=== PATIENT | male | born 1995 | race Caucasian/White ===

== ENCOUNTER 2017-08-01 11:40 | Inpatient (IN) | payer OTHER, MEDICAID ==
[2017-08-01] VITALS (11 sets, daily range): BP systolic 102–147; BP diastolic 38–69
[~2017-08-01] VITALS: Ht 177.8 cm; Wt 68.0 kg
--- NOTE | 2017-08-01 11:59 | Emergency Room Report ---
History of Present Illness General Chief Complaint: Nausea Source: Patient, EMS Present Illness HPI 21-year-old male, with type 1 diabetes, substance abuse, presenting with nausea vomiting and generalized weakness. Patient states that he relapsed after recovering from rehabilitation, used intravenous meth, and crack, this a.m. Patient states that he began to feel very short of breath with generalized weakness. Patient also states that he has numbness to all 4 extremities. Patient also states that he had nausea and vomiting nonbilious nonbloody x2 episodes. Denies any abdominal pain Patient states that he is supposed to be on insulin but has not taken it for 3 years. Patient states that he has been to the ICU for complications related to his diabetes in the past. Patient denying any fever or chills. Allergies: Coded Allergies: No Known Allergies (Unverified , 08/01/17) Patient History Past Medical History: see triage record Past Surgical History: none Pertinent Family History: none Reviewed Nursing Documentation: PMH: Agreed, PSxH: Agreed Review of Systems All Other Systems: negative except mentioned in HPI Physical Exam Vital Signs Date Time Temp Pulse Resp B/P (MAP) Pulse Ox O2 Delivery O2 Flow Rate FiO2 08/01/17 11:38 97.9 104 16 138/60 98 Room Air Sp02 EP Interpretation: reviewed, normal General Appearance: alert, GCS 15, other - Young male, appears anxious, tachypneic, speaking complete sentences Head: normocephalic, atraumatic Eyes: bilateral eye normal inspection, bilateral eye PERRL, bilateral eye EOMI ENT: normal ENT inspection, normal pharynx, normal voice, moist mucus membranes Neck: normal inspection, full range of motion, supple Respiratory: normal inspection, lungs clear, normal breath sounds, no respiratory distress, no retraction, no wheezing, speaking full sentences, chest symmetrical Cardiovascular #1: normal inspection, no edema, normal capillary refill, tachycardia Cardiovascular #2: 2+ radial (R), 2+ radial (L) Gastrointestinal: normal inspection, non tender, soft, non-distended, no guarding Genitourinary: no CVA tenderness Musculoskeletal: normal inspection, back normal, normal range of motion, non- tender Neurologic: normal inspection, alert, oriented x3, responsive, motor strength/ tone normal, sensory intact, normal gait, speech normal Psychiatric: normal inspection, judgement/insight normal, memory normal Skin: normal inspection, normal color, no rash, warm/dry, normal turgor Procedures Critical Care Time Critical Care Time 40 minutes of CC time 21-year-old male found to be in DKA VS: hypotension, tachycardia Sepsis criteria met Airway patent. Not hypoxic. BP improved here with IVF PLAN: IV access, labs, lactate, acetone, Blood/Urine Cx, Abx ICU CC time also includes review of labs, discussion with pharmacy, managing patient 's electrolytes, insulin drip. CC could include dosing of pressors, additional Abx CC time does not include procedures Medical Decision Making Diagnostic Impression: Primary Impression: DKA, type 1 Additional Impressions: Sepsis Dehydration Hyperkalemia ER Course 21 yo M. with diabetes, substance abuse, presenting with generalized weakness nausea vomiting DDX: Rule out DKA, electrolyte disturbance, dehydration, hypovolemia, infectious, UTI or pneumonia Substance abuse rule out overdose Plan: Obtain labs, ua, acetone, tox labs EKG, CXR IV fluids Consider insulin drip ER course: Patient has been monitored during ED stay, Continues to be in critical condition IV fluid 1000cc's x 2 HyperK treated insulin drip started at 0.1 units/kg/hr broad spectrum abx given Disposition: Patient is to be admitted to ICU D/W hospitalist Dr. Clyde Correa Please note that this Emergency Department Report was dictated using [employer] technology software, occasionally this can lead to erroneous entry secondary to interpretation by the dictation equipment. Laboratory Tests Test 08/01/17 11:55 08/01/17 11:56 08/01/17 14:15 White Blood Count 18.5 K/UL (4.8-10.8) H Red Blood Count 4.70 M/UL (4.70-6.10) Hemoglobin 14.5 G/DL (14.2-18.0) Hematocrit 47.8 % (42.0-52.0) Mean Corpuscular Volume 102 FL (80-99) H Mean Corpuscular Hemoglobin 30.8 PG (27.0-31.0) Mean Corpuscular Hemoglobin Concent 30.2 G/DL (32.0-36.0) L Red Cell Distribution Width 12.8 % (11.6-14.8) Platelet Count 474 K/UL (150-450) H Mean Platelet Volume 6.2 FL (6.5-10.1) L Neutrophils (%) (Auto) % (45.0-75.0) Lymphocytes (%) (Auto) % (20.0-45.0) Monocytes (%) (Auto) % (1.0-10.0) Eosinophils (%) (Auto) % (0.0-3.0) Basophils (%) (Auto) % (0.0-2.0) Differential Total Cells Counted 100 Neutrophils % (Manual) 88 % (45-75) H Lymphocytes % (Manual) 8 % (20-45) L Monocytes % (Manual) 3 % (1-10) Eosinophils % (Manual) 0 % (0-3) Basophils % (Manual) 1 % (0-2) Band Neutrophils 0 % (0-8) Platelet Estimate Adequate Platelet Morphology Normal Red Blood Cell Morphology Macrocytosis 1+ Sodium Level 118 mEQ/L (135-145) *L 126 mEQ/L (135-145) L Potassium Level 7.2 mEQ/L (3.4-4.9) *H 6.6 mEQ/L (3.4-4.9) *H Chloride Level 72 mEQ/L (98-107) L 83 mEQ/L (98-107) L Carbon Dioxide Level 6 mEQ/L (20-30) *L 4 mEQ/L (20-30) *L Anion Gap 40 (5-15) H 39 (5-15) H Blood Urea Nitrogen 35 mg/dL (7-23) H 35 mg/dL (7-23) H Creatinine 2.0 mg/dL (0.7-1.2) H 1.9 mg/dL (0.7-1.2) H Estimate Glomerular Filtration Rate 42.4 mL/min (>60) 45.0 mL/min (>60) Glucose Level 1073 mg/dL (74-106) *H 758 mg/dL (74-106) #*H Lactic Acid Level 2.60 mmol/L (0.66-2.22) H Calcium Level 9.2 mg/dL (8.6-10.2) 8.9 mg/dL (8.6-10.2) Magnesium Level 2.5 mg/dL (1.7-2.5) Total Bilirubin 0.5 mg/dL (0.0-1.2) 0.3 mg/dL (0.0-1.2) Aspartate Amino Transferase (AST) 25 U/L (5-40) 30 U/L (5-40) Alanine Aminotransferase (ALT) 22 U/L (3-41) 25 U/L (3-41) Alkaline Phosphatase 181 U/L (40-129) H 175 U/L (40-129) H Total Protein 8.3 g/dL (6.6-8.7) 7.8 g/dL (6.6-8.7) Albumin 5.0 g/dL (3.5-5.2) 4.7 g/dL (3.5-5.2) Globulin 3.3 g/dL 3.1 g/dL Albumin/Globulin Ratio 1.5 (1.0-2.7) 1.5 (1.0-2.7) Salicylates Level < 1 mg/dL (10-30) L Acetaminophen Level < 10 ug/mL (10-30) L Serum Alcohol < 10 mg/dL Acetone Level Positive-moderate (NEGATIVE) Urine Color Pale yellow Urine Appearance Clear Urine pH 5 (4.5-8.0) Urine Specific [place] 1.015 (1.005-1.035) Urine Protein 2+ (NEGATIVE) H Urine Glucose (UA) 4+ (NEGATIVE) H Urine Ketones 4+ (NEGATIVE) H Urine Occult Blood 1+ (NEGATIVE) H Urine Nitrite Negative (NEGATIVE) Urine Bilirubin Negative (NEGATIVE) Urine Urobilinogen Normal MG/DL (0.0-1.0) Urine Leukocyte Esterase Negative (NEGATIVE) Urine RBC 2-4 /HPF (0 - 0) H Urine WBC 0-2 /HPF (0 - 0) Urine Squamous Epithelial Cells None /LPF (NONE/OCC) Urine Bacteria Occasional /HPF (NONE) Urine Opiates Screen Negative (NEGATIVE) Urine Barbiturates Screen Positive (NEGATIVE) H Phencyclidine (PCP) Screen Negative (NEGATIVE) Urine Amphetamines Screen Negative (NEGATIVE) Urine Benzodiazepines Screen Negative (NEGATIVE) Urine Cocaine Screen Positive (NEGATIVE) H Urine Marijuana (THC) Screen Negative (NEGATIVE) EKG Diagnostic Results Rate: tachycardiac Rhythm: NSR ST Segments: no acute changes ASA given to the pt in ED: No Rhythm Strip Diag. Results EP Interpretation: yes Rate: 90 Rhythm: NSR, no PVC's, no ectopy Chest X-Ray Diagnostic Results Chest X-Ray Diagnostic Results : Chest X-Ray Ordered: Yes # of Views/Limited/Complete: 1 View Indication: Other EP Interpretation: Yes Interpretation: no consolidation, no effusion, no pneumothorax, no acute cardiopulmonary disease Impression: No acute disease Electronically Signed by: Electronically signed by Roxanne Rayo MD Last Vital Signs Date Time Temp Pulse Resp B/P (MAP) Pulse Ox O2 Delivery O2 Flow Rate FiO2 08/01/17 11:38 97.9 104 16 138/60 98 Room Air Disposition: ADMITTED INPATIENT Condition: Critical Roxanne Rayo M.D. Aug 01, 2017 11:59
[2017-08-01 12:21] LABS: KETONES,URINE 4+ (NEGATIVE); LEUKOCYTE ESTERASE ,URINE NEGATIVE (NEGATIVE); NITRITE,URINE NEGATIVE (NEGATIVE); PH,URINE 5 (4.5-8.0); PROTEIN,URINE 2+ (NEGATIVE); UROBILINOGEN,URINE NORMAL MG/DL (0.0-1.0)
[2017-08-01 12:21] LABS: MEAN CORPUSCULAR HEMOGLOBIN 30.8 PG (27.0-31.0); MEAN CORPUSCULAR HGB CONC 30.2 G/DL (32.0-36.0); MEAN CORPUSCULAR VOLUME 102 FL (80-99); MEAN PLATELET VOLUME 6.2 FL (6.5-10.1); PLATELET COUNT 474 K/UL (150-450); RED CELL DISTRIBUTION WIDTH 12.8 % (11.6-14.8); WHITE BLOOD COUNT 18.5 K/UL (4.8-10.8)
[2017-08-01 12:27] LABS: ACETAMINOPHEN < 10 ug/mL (10-30); ALANINE AMINOTRANSFERASE 22 U/L (3-41); ALBUMIN/GLOBULIN RATIO 1.5 (1.0-2.7); ALCOHOL < 10 mg/dL; ANION GAP 40 (5-15); ASPARTATE AMINO TRANSFERASE 25 U/L (5-40); CALCIUM 9.2 mg/dL (8.6-10.2); CHLORIDE 72 mEQ/L (98-107); GLOMERULAR FILTRATION RATE 42.4 mL/min (>60); HEMOLYSIS 3; MAGNESIUM 2.5 mg/dL (1.7-2.5); TOTAL PROTEIN 8.3 g/dL (6.6-8.7)
[2017-08-01 12:30] LABS: APPEARANCE,URINE CLEAR; BACTERIA,URINE OCCASIONAL /HPF; WBC,URINE 0-2 /HPF (0 - 0)
[2017-08-01 12:33] LABS: REFLEX LACTIC ACID YES OR NO YES
[2017-08-01 12:41] LABS: CARBON DIOXIDE 6 mEQ/L (20-30); POTASSIUM 7.2 mEQ/L (3.4-4.9); SODIUM 118 mEQ/L (135-145)
[2017-08-01 12:45] LABS: BAND NEUTROPHILS % (MANUAL) 0 % (0-8); BASOPHILS % (MANUAL) 1 % (0-2); EOSINOPHILS % (MANUAL) 0 % (0-3); LYMPHOCYTES % (MANUAL) 8 % (20-45); MACROCYTES 1+; NEUTROPHILS % (MANUAL) 88 % (45-75); PLATELET ESTIMATE ADEQUATE; PLATELET MORPHOLOGY NORMAL; TOTAL CELLS COUNTED 100
[2017-08-01] MEDS ORDERED: Vancomycin 1.5gm/D5W 250ml 250 ML IVPB ONE (12:45)
[2017-08-01] MEDS ORDERED: Piperacillin/Tazobactam 3.375 GM in NS 110 ML IVPB ONE (12:45)
[2017-08-01] MEDS ORDERED: Calcium Gluconate 1gm/10ml vial IVP ONE (13:00)
[2017-08-01] MEDS ORDERED: Zosyn 3.375gm inj ONE (13:15)
--- NOTE | 2017-08-01 13:41 | Diagnostic Imaging Report ---
Indication: Dyspnea Comparison: None A single view chest radiograph was obtained. Findings: Cardiomediastinal appearance is within normal limits for age. Pulmonary vascularity is appropriate. The diaphragmatic contour is smooth and costophrenic angles are sharp. No pleural effusions are identified. The bones are unremarkable. Impression: No acute findings
[2017-08-01] MEDS ORDERED: Miralax 17gm pkt ORAL PRN (14:00)
[2017-08-01] MEDS ORDERED: Nitroglycerin Subl 0.4mg tab (Bottle Of 25) SL PRN (14:00)
[2017-08-01] MEDS ORDERED: DuoNeb 0.5-3(2.5)mg/3ml neb HHN PRN (14:00)
[2017-08-01 14:42] LABS: ALBUMIN/GLOBULIN RATIO 1.5 (1.0-2.7); CALCIUM 8.9 mg/dL (8.6-10.2); CREATININE 1.9 mg/dL (0.7-1.2); TOTAL PROTEIN 7.8 g/dL (6.6-8.7)
[2017-08-01 14:44] LABS: POTASSIUM 6.6 mEQ/L (3.4-4.9)
[2017-08-01] MEDS: Insulin Rate Change 1 Each MISC PRN ×6 (18:05→22:32)
--- NOTE | 2017-08-01 18:08 | Infectious Diseases Prog Note ---
Assessment/Plan Problems: (1) Sepsis Assessment & Plan: will start vancomycin and cefepime empirically pending blood culture (2) DKA, type 1 Assessment & Plan: on insulin drip, monitor glucose level closely (3) Dehydration Assessment & Plan: continue IVF, for hydration monitor electrolytes (4) Hyperkalemia Assessment & Plan: due to DKA, monitor potassium level closely , may need replacement if drops with insulin treatment Subjective Allergies: Coded Allergies: No Known Allergies (Unverified , 08/01/17) Objective Vital Signs Last 24 Hour Vital Signs Date Time Temp Pulse Resp B/P (MAP) Pulse Ox O2 Delivery O2 Flow Rate FiO2 08/01/17 17:00 111 25 102/44 100 Room Air 08/01/17 16:32 109 08/01/17 16:30 102 08/01/17 16:30 98.1 102 22 108/43 100 Room Air 08/01/17 15:45 97.9 119 24 113/52 100 Room Air 08/01/17 13:30 97.9 55 24 105/41 100 Room Air 08/01/17 12:08 97.9 116 40 147/69 100 Room Air 08/01/17 11:38 97.9 104 16 138/60 98 Room Air Height (Feet): 5 Height (Inches): 10.00 Weight (Pounds): 150 Laboratory Tests Test 08/01/17 11:55 08/01/17 11:56 08/01/17 14:15 08/01/17 15:01 White Blood Count 18.5 K/UL (4.8-10.8) H Red Blood Count 4.70 M/UL (4.70-6.10) Hemoglobin 14.5 G/DL (14.2-18.0) Hematocrit 47.8 % (42.0-52.0) Mean Corpuscular Volume 102 FL (80-99) H Mean Corpuscular Hemoglobin 30.8 PG (27.0-31.0) Mean Corpuscular Hemoglobin Concent 30.2 G/DL (32.0-36.0) L Red Cell Distribution Width 12.8 % (11.6-14.8) Platelet Count 474 K/UL (150-450) H Mean Platelet Volume 6.2 FL (6.5-10.1) L Neutrophils (%) (Auto) % (45.0-75.0) Lymphocytes (%) (Auto) % (20.0-45.0) Monocytes (%) (Auto) % (1.0-10.0) Eosinophils (%) (Auto) % (0.0-3.0) Basophils (%) (Auto) % (0.0-2.0) Differential Total Cells Counted 100 Neutrophils % (Manual) 88 % (45-75) H Lymphocytes % (Manual) 8 % (20-45) L Monocytes % (Manual) 3 % (1-10) Eosinophils % (Manual) 0 % (0-3) Basophils % (Manual) 1 % (0-2) Band Neutrophils 0 % (0-8) Platelet Estimate Adequate Platelet Morphology Normal Red Blood Cell Morphology Macrocytosis 1+ Sodium Level 118 mEQ/L (135-145) *L 126 mEQ/L (135-145) L Potassium Level 7.2 mEQ/L (3.4-4.9) *H 6.6 mEQ/L (3.4-4.9) *H Chloride Level 72 mEQ/L (98-107) L 83 mEQ/L (98-107) L Carbon Dioxide Level 6 mEQ/L (20-30) *L 4 mEQ/L (20-30) *L Anion Gap 40 (5-15) H 39 (5-15) H Blood Urea Nitrogen 35 mg/dL (7-23) H 35 mg/dL (7-23) H Creatinine 2.0 mg/dL (0.7-1.2) H 1.9 mg/dL (0.7-1.2) H Estimat Glomerular Filtration Rate 42.4 mL/min (>60) 45.0 mL/min (>60) Glucose Level 1073 mg/dL (74-106) *H 758 mg/dL (74-106) #*H Lactic Acid Level 2.60 mmol/L (0.66-2.22) H 1.50 mmol/L (0.66-2.22) Calcium Level 9.2 mg/dL (8.6-10.2) 8.9 mg/dL (8.6-10.2) Magnesium Level 2.5 mg/dL (1.7-2.5) Total Bilirubin 0.5 mg/dL (0.0-1.2) 0.3 mg/dL (0.0-1.2) Aspartate Amino Transf (AST/SGOT) 25 U/L (5-40) 30 U/L (5-40) Alanine Aminotransferase (ALT/SGPT) 22 U/L (3-41) 25 U/L (3-41) Alkaline Phosphatase 181 U/L (40-129) H 175 U/L (40-129) H Total Protein 8.3 g/dL (6.6-8.7) 7.8 g/dL (6.6-8.7) Albumin 5.0 g/dL (3.5-5.2) 4.7 g/dL (3.5-5.2) Globulin 3.3 g/dL 3.1 g/dL Albumin/Globulin Ratio 1.5 (1.0-2.7) 1.5 (1.0-2.7) Salicylates Level < 1 mg/dL (10-30) L Acetaminophen Level < 10 ug/mL (10-30) L Serum Alcohol < 10 mg/dL Acetone Level Positive-moderate (NEGATIVE) Urine Color Pale yellow Urine Appearance Clear Urine pH 5 (4.5-8.0) Urine Specific [place] 1.015 (1.005-1.035) Urine Protein 2+ (NEGATIVE) H Urine Glucose (UA) 4+ (NEGATIVE) H Urine Ketones 4+ (NEGATIVE) H Urine Occult Blood 1+ (NEGATIVE) H Urine Nitrite Negative (NEGATIVE) Urine Bilirubin Negative (NEGATIVE) Urine Urobilinogen Normal MG/DL (0.0-1.0) Urine Leukocyte Esterase Negative (NEGATIVE) Urine RBC 2-4 /HPF (0 - 0) H Urine WBC 0-2 /HPF (0 - 0) Urine Squamous Epithelial Cells None /LPF (NONE/OCC) Urine Bacteria Occasional /HPF (NONE) Urine Opiates Screen Negative (NEGATIVE) Urine Barbiturates Screen Positive (NEGATIVE) H Phencyclidine (PCP) Screen Negative (NEGATIVE) Urine Amphetamines Screen Negative (NEGATIVE) Urine Benzodiazepines Screen Negative (NEGATIVE) Urine Cocaine Screen Positive (NEGATIVE) H Urine Marijuana (THC) Screen Negative (NEGATIVE) Current Medications Medications (Trade) Dose Ordered Sig/Alfredo Route PRN Reason Start Time Stop Time Status Last Admin Dose Admin Acetaminophen (Tylenol) 650 mg Q4H PRN ORAL Fever 08/01/17 14:00 08/31/17 13:59 Albuterol/ Ipratropium (DuoNeb 0.5-3(2.5)mg/3ml) 3 ml Q4H PRN HHN Shortness of Breath 08/01/17 14:00 08/06/17 13:59 Dextrose (Dextrose 50%) PRN PRN IV HYPOGLYCEMIA 08/01/17 14:00 08/31/17 13:59 Dextrose (Dextrose 50%) STAT PRN IV Hypoglycemia 08/01/17 14:00 08/31/17 13:59 Heparin Sodium (Porcine) (Heparin 5000 units/ml) 5,000 units EVERY 12 HOURS SUBQ 08/01/17 21:00 08/31/17 20:59 Insulin Human Regular (NovoLIN R) 5 units PRN PRN IV BS 200-299 08/01/17 14:00 08/31/17 13:59 Insulin Human Regular (NovoLIN R) 10 units PRN PRN IV BS=>300 08/01/17 14:00 08/31/17 13:59 Insulin Human Regular 100 units/ Sodium Chloride 101 ml @ 0 mls/hr Q24H IV 08/01/17 17:30 08/31/17 17:29 Lorazepam (Ativan 2mg/ml 1ml) 2 mg Q2H PRN IV agitation 08/01/17 14:00 08/08/17 13:59 Miscellaneous Medication (Insulin Rate Change) 1 ea PRN PRN MISC To Patient Comfort 08/01/17 14:00 08/31/17 13:59 08/01/17 18:05 Morphine Sulfate (Morphine Sulfate) 4 mg Q4H PRN IVP Severe Pain (Pain Scale 7-10) 08/01/17 14:00 08/08/17 13:59 Nitroglycerin (Ntg) 0.4 mg Q5M PRN SL Prn Chest Pain 08/01/17 14:00 08/31/17 13:59 Ondansetron HCl (Zofran) 4 mg Q6H PRN IVP Nausea & Vomiting 08/01/17 14:00 08/31/17 13:59 Polyethylene Glycol (Miralax) 17 gm DAILYPRN PRN ORAL Constipation 08/01/17 14:00 08/31/17 13:59 Sodium Chloride 1,000 ml @ 150 mls/hr Q6H40M IV 08/01/17 16:30 08/31/17 16:29 Jan Webber M.D. Aug 01, 2017 18:08
[2017-08-01 19:53] LABS: CALCIUM 8.5 mg/dL (8.6-10.2); CREATININE 1.5 mg/dL (0.7-1.2); GLOMERULAR FILTRATION RATE 59.1 mL/min (>60); POTASSIUM 4.2 mEQ/L (3.4-4.9)
[2017-08-01] MEDS: Cefepime HCl 1 GM in NS 55 ML IVPB SCH (20:52)
[2017-08-01] MEDS: Heparin 5000 units/ml inj SUBQ SCH (21:04)
[2017-08-01] MEDS: D5 1/2NS 1,000 ML IV SCH (22:47)
[2017-08-02] VITALS (24 sets, daily range): BP systolic 85–121; BP diastolic 33–93
[2017-08-02] MEDS: Insulin Rate Change 1 Each MISC PRN ×3 (00:31→06:27)
--- NOTE | 2017-08-02 02:30 | History and Physical Report ---
DATE OF ADMISSION: 08/01/2017 TIME SEEN: At 2 p.m. CONSULTANTS: 1. Angie Dunn M.D. 2. Rachid Ahmadi M.D. CHIEF COMPLAINT: Nausea, vomiting, weight loss, DKA.. HISTORY OF PRESENT ILLNESS: This is a 21-year-old male, who presents with two days of increased nausea, vomiting, and some weight loss over the past week. The patient came to the ER, diagnosed with DKA, being admitted. Currently, calm, weak in bed, in rbucoda in ER. No complaints. PAST MEDICAL HISTORY: Hepatitis C. PAST SURGICAL HISTORY: None. MEDICATIONS: Heparin, insulin, Novolin, Ativan, MiraLax, morphine, Tylenol, nitroglycerin, Zofran, and Zosyn. ALLERGIES: Denies. SOCIAL HISTORY: Positive smoke. No alcohol. Positive drug usage. REVIEW OF SYSTEMS: Slight nausea and vomiting. No chest pain. No shortness of breath. PHYSICAL EXAMINATION: GENERAL: Lethargic, anxious, oriented x3, no acute distress. VITAL SIGNS: Temperature is 97, pulse 116, respirations 40, and blood pressure 147/69. CARDIOVASCULAR: No murmurs. LUNGS: Clear. ABDOMEN: Bowel sounds are positive. Slightly tender. No guarding. No rigidity. No rebound. EXTREMITIES: No cyanosis, clubbing, or edema. NEUROLOGICAL: The patient moves all extremities, slightly weak. LABORATORY DATA: White count is 18.5 and platelets 474. Sodium is 118, potassium 7.2, chloride 72, bicarbonate 6, BUN and creatinine 35 and 2.0, and glucose 1073. Lactic acid is 2.6. Alkaline phosphatase is 181. Urinalysis, 2+ protein, 4+ glucose, 4+ ketone, and 1+ blood. Urine toxicology is positive for barbiturates and cocaine. ASSESSMENT: 1. Diabetic ketoacidosis. 2. Hepatitis C. 3. Leukocytosis. 4. Renal failure. 5. Hypertension. PLAN: Continue premeds. IV fluids. NPO. Insulin drip per Endocrine. OT/PT. Dietary evaluation. CBC and BMP in the morning. Dr. Dunn, Dr. Ahmadi, Dr. Dowell, Dr. Naranjo, and Dr. Lee to consult. We will continue to follow the patient. Clyde Correa D.O. DR: Elda JOB#: [id number] CC:
[2017-08-02] MEDS ORDERED: Vancomycin 750mg/NS 250ml IVPB SCH (03:00)
--- NOTE | 2017-08-02 04:00 | Consultation ---
DATE OF CONSULTATION: INFECTIOUS DISEASE CONSULTATION CONSULTING PHYSICIAN: Jan Webber M.D. REQUESTING PHYSICIAN: Clyde Correa D.O. REASON FOR CONSULTATION: Sepsis and leukocytosis, recommendation for antibiotics therapy. HISTORY OF PRESENT ILLNESS: The patient is a 21-year-old male with history of type 1 diabetes and substance abuse, who was brought in to [facility] with vomiting and generalized weakness. The patient was currently in rehabilitation for his drug abuse habit. He relapsed after he recovered. He has used intravenous meth and crack this morning and he felt short of breath with generalized weakness. He also had numbness in his extremity. The patient vomited twice with bilious fluid. No blood in his vomits. Currently, denied any abdominal pain. The patient has not been taking insulin for a long time and he was found to be in diabetic ketoacidosis, so he was admitted to the intensive care unit for insulin drip. He was also found to have leukocytosis around 18,000 suspicious for sepsis. So, he was started on vancomycin and Zosyn and I was consulted by the primary provider for antibiotics treatment and further care. PAST MEDICAL HISTORY: Significant for diabetes type 1 and drug abuse. PAST SURGICAL HISTORY: Negative. MEDICATIONS: The patient was started on Zosyn and vancomycin in the emergency room. For the rest of his medications, please refer to [facility]. ALLERGIES: No known drug allergy. SOCIAL HISTORY: Currently unemployed. Uses drugs on regular basis, was recently at rehabilitation, but relapsed. FAMILY HISTORY: Noncontributory. PHYSICAL EXAMINATION: GENERAL: A young male, lying in bed, awake, alert, lethargic, and not in distress. VITAL SIGNS: Respirations 25, blood pressure 102/44, and saturation 100% on room air. HEENT: Normocephalic and atraumatic. Pupils reactive to light equally. Moist oral mucosa. No exudate. NECK: Supple. No lymphadenopathy. CARDIOVASCULAR: Regular rate and rhythm with tachycardia. No murmur. LUNGS: Clear bilaterally. No wheezing or rhonchi. ABDOMEN: Soft, nontender, and nondistended. Positive bowel sounds. No hepatosplenomegaly or ascites. EXTREMITY: No edema or cyanosis. LABORATORY DATA: WBC 18.5, hemoglobin 14.5, and platelet count 474,000. BUN of 35 and creatinine of 2. Glucose level 1073. Alkaline phosphatase 181. Urinalysis showed ketones, protein, and glucose in the urine with negative leukocyte esterase and negative nitrites. Toxicology screening positive for barbiturates and cocaine. IMAGING: Chest x-ray showed no acute finding. ASSESSMENT AND RECOMMENDATION: 1. Sepsis, suspect due to intravenous drug abuse. We will start the patient on vancomycin and cefepime empiric treatment pending blood culture results. 2. Diabetic ketoacidosis due to noncompliance with insulin. Continue insulin drip. Monitor glucose level closely in the unit. 3. Hyperkalemia due to dehydration and diabetic ketoacidosis. Monitor potassium levels. May need replacement if drops with insulin treatment. 4. Dehydration. Continue intravenous fluid for hydration. 5. Drug abuse. Recommend counseling and rehabilitation. Jan Webber M.D. DR: RORY JOB#: [id number] CC:
[2017-08-02 05:52] LABS: BILIRUBIN,DIRECT 0.1 mg/dL (0.1-0.3); PHOSPHORUS 2.4 mg/dL (2.5-4.8)
[2017-08-02 05:55] LABS: PROTHROMBIN TIME 10.8 SEC (9.30-11.50)
--- NOTE | 2017-08-02 05:56 | Pulmonolgy Critical Care Note ---
Critical Care - Asmt/Plan Problems: (1) DKA, type 1 (2) Dehydration (3) Hyperkalemia Respiratory: monitor respiratory rate Cardiac: continue to monitor HR/BP Renal: F/U I&O, keep IV fluid, check electrolytes Infectious Disease: check cultures Gastrointestinal: continue feedings/current rate Endocrine: monitor blood sugar, continue sliding scale insulin Hematologic: monitor H/H, transfuse if hgb<8.5 Neurologic: PRN Ativan, keep patient comfortable Affect: PRN ativan Prophylaxis: Protonix Notes Reviewed: aircraft motor mechanic, renal Discussed with: nurses, consultants, showcase makermedical staff manager - Objective Last 24 Hour Vital Signs Date Time Temp Pulse Resp B/P (MAP) Pulse Ox O2 Delivery O2 Flow Rate FiO2 08/02/17 05:00 84 24 99/64 100 Room Air 08/02/17 04:00 98.1 85 24 85/93 100 Room Air 08/02/17 03:00 81 18 90/43 100 Room Air 08/02/17 02:00 88 22 93/54 100 Room Air 08/02/17 01:05 91 25 96/49 100 Room Air 08/02/17 00:00 98.7 85 21 86/33 99 Room Air 08/01/17 23:23 88 08/01/17 23:00 90 24 103/50 99 Room Air 08/01/17 22:00 99 28 111/50 100 Room Air 08/01/17 21:00 97 26 113/38 100 Room Air 08/01/17 20:00 98.9 102 30 119/54 99 Room Air 08/01/17 19:23 107 08/01/17 19:00 105 25 106/52 97 Room Air 08/01/17 18:00 109 25 116/53 97 Room Air 08/01/17 17:00 111 25 102/44 100 Room Air 08/01/17 16:32 109 08/01/17 16:30 102 08/01/17 16:30 98.1 102 22 108/43 100 Room Air 08/01/17 15:45 97.9 119 24 113/52 100 Room Air 08/01/17 13:30 97.9 55 24 105/41 100 Room Air 08/01/17 12:08 97.9 116 40 147/69 100 Room Air 08/01/17 11:38 97.9 104 16 138/60 98 Room Air Status: awake, sedated Condition: grave Neck: full ROM Lungs: chest wall tender Heart: HR/BP stable, regular Abdomen: non-tender, active bowel sounds Extremities: no C/C/E, edema Accucheck: 97 Critical Care - Subjective ROS Limited/Unobtainable: No ICU Day: 1 Intubation Day: 1 Interval Events: late note 08/01 EKG Rhythm: Sinus Rhythm VALERY OG Aug 02, 2017 05:56
[2017-08-02 06:03] LABS: ALANINE AMINOTRANSFERASE 17 U/L (3-41); ALBUMIN/GLOBULIN RATIO 1.5 (1.0-2.7); ANION GAP 20 (5-15); ASPARTATE AMINO TRANSFERASE 18 U/L (5-40); CALCIUM 8.6 mg/dL (8.6-10.2); CARBON DIOXIDE 17 mEQ/L (20-30); CHLORIDE 102 mEQ/L (98-107); CREATININE 1.2 mg/dL (0.7-1.2); GLOMERULAR FILTRATION RATE > 60 mL/min (>60); HEMOLYSIS 5; POTASSIUM 3.8 mEQ/L (3.4-4.9); SODIUM 139 mEQ/L (135-145); TOTAL PROTEIN 6.3 g/dL (6.6-8.7)
[2017-08-02] MEDS: D5 1/2NS 1,000 ML IV SCH ×3 (06:24→15:33)
--- NOTE | 2017-08-02 08:40 | Pulmonolgy Critical Care Note ---
Critical Care - Asmt/Plan Assessment/Plan: ASSESSMENT DKA Sepsis Dehydration ARF Acute hypo Na Acute hyperkalemia Substance abuse /cocaine PLAN OF CARE ICU Generous IV hydration Insulin gtt per algorithm until anion gap closes [id number] - not at goal Monitor lytes, stable now give [id number] x 24 hrs, repeat P in am Avoid nephrotoxic Nephro eval as per PMD discretion Empiric abx, fup with cx ID follows o O2 HHN prn, stable pulse ox on RA CXR negative DVT prophylaxis Urine tox + barbiturates, cocaine Videotape Recording Engineer on abstinence from street drugs DVT prophylaxis case discussed and evaluated by supervising physician Critical Care - Objective Last 24 Hour Vital Signs Date Time Temp Pulse Resp B/P (MAP) Pulse Ox O2 Delivery O2 Flow Rate FiO2 08/02/17 08:00 84 08/02/17 08:00 98.0 78 17 109/52 100 Room Air 08/02/17 07:00 85 24 88/33 100 Room Air 08/02/17 06:00 91 25 112/51 100 Room Air 08/02/17 05:00 84 24 99/64 100 Room Air 08/02/17 04:00 98.1 85 24 85/93 100 Room Air 08/02/17 04:00 79 08/02/17 03:00 81 18 90/43 100 Room Air 08/02/17 02:00 88 22 93/54 100 Room Air 08/02/17 01:05 91 25 96/49 100 Room Air 08/02/17 00:00 98.7 85 21 86/33 99 Room Air 08/01/17 23:23 88 08/01/17 23:00 90 24 103/50 99 Room Air 08/01/17 22:00 99 28 111/50 100 Room Air 08/01/17 21:00 97 26 113/38 100 Room Air 08/01/17 20:00 98.9 102 30 119/54 99 Room Air 08/01/17 19:23 107 08/01/17 19:00 105 25 106/52 97 Room Air 08/01/17 18:00 109 25 116/53 97 Room Air 08/01/17 17:00 111 25 102/44 100 Room Air 08/01/17 16:32 109 08/01/17 16:30 102 08/01/17 16:30 98.1 102 22 108/43 100 Room Air 08/01/17 15:45 97.9 119 24 113/52 100 Room Air 08/01/17 13:30 97.9 55 24 105/41 100 Room Air 08/01/17 12:08 97.9 116 40 147/69 100 Room Air 08/01/17 11:38 97.9 104 16 138/60 98 Room Air Status: awake Condition: critical HEENT: atraumatic, normocephalic Neck: full ROM Lungs: clear Heart: HR/BP stable, regular Abdomen: soft, non-tender, active bowel sounds Extremities: no C/C/E Accucheck: 115 Critical Care - Subjective Interval Events: on insulin gtt BS better creat down to 1.2 Na and K normalized P-2.4 admits to generalized weakness, fatigue, injected with crack cocaine before symptoms occur no chest pain, no SOB Condition: critical IV Access: peripheral EKG Rhythm: Sinus Rhythm Fluids: D51/2 NS at 125 Drips: insulin gtt at 1 u/hr I&O: Intake and Output 08/02/17 08/03/17 19:00 07:00 Intake Total 20 ml Output Total 0 ml Balance 20 ml Other 20 ml Output Urine Total 0 ml CXR: No acute findings Adeel GomezJewell murrell NP Aug 02, 2017 08:40
[2017-08-02] MEDS: Cefepime HCl 1 GM in NS 55 ML IVPB SCH ×2 (09:05→20:56)
[2017-08-02] MEDS: Phospha 250 Neutral tab ORAL SCH ×4 (09:05→20:56)
[2017-08-02] MEDS: Heparin 5000 units/ml inj SUBQ SCH ×2 (09:08→20:59)
[2017-08-02] MEDS: Insulin Rate Change 1 Each MISC SCH ×5 (09:11→13:41)
--- NOTE | 2017-08-02 09:16 | General Progress Note ---
Assessment/Plan Problem List: (1) Dehydration ICD Codes: E86.0 - Dehydration SNOMED: 25289175 (2) Hyperkalemia ICD Codes: E87.5 - Hyperkalemia SNOMED: 63986872 (3) Sepsis ICD Codes: A41.9 - Sepsis, unspecified organism SNOMED: 12230157 (4) DKA, type 1 ICD Codes: E10.10 - Type 1 diabetes mellitus with ketoacidosis without coma SNOMED: 44615181, [id number] Status: progressing Assessment/Plan abx bs control detox cbc bmp am Subjective Constitutional: Reports: weakness Allergies: Coded Allergies: No Known Allergies (Unverified , 08/01/17) All Systems: reviewed and negative except above Subjective calm in bed in icu Objective Last 24 Hour Vital Signs Date Time Temp Pulse Resp B/P (MAP) Pulse Ox O2 Delivery O2 Flow Rate FiO2 08/02/17 09:00 70 24 110/40 100 Room Air 08/02/17 08:00 84 08/02/17 08:00 98.0 78 17 109/52 100 Room Air 08/02/17 07:00 85 24 88/33 100 Room Air 08/02/17 06:00 91 25 112/51 100 Room Air 08/02/17 05:00 84 24 99/64 100 Room Air 08/02/17 04:00 98.1 85 24 85/93 100 Room Air 08/02/17 04:00 79 08/02/17 03:00 81 18 90/43 100 Room Air 08/02/17 02:00 88 22 93/54 100 Room Air 08/02/17 01:05 91 25 96/49 100 Room Air 08/02/17 00:00 98.7 85 21 86/33 99 Room Air 08/01/17 23:23 88 08/01/17 23:00 90 24 103/50 99 Room Air 08/01/17 22:00 99 28 111/50 100 Room Air 08/01/17 21:00 97 26 113/38 100 Room Air 08/01/17 20:00 98.9 102 30 119/54 99 Room Air 08/01/17 19:23 107 08/01/17 19:00 105 25 106/52 97 Room Air 08/01/17 18:00 109 25 116/53 97 Room Air 08/01/17 17:00 111 25 102/44 100 Room Air 08/01/17 16:32 109 08/01/17 16:30 102 08/01/17 16:30 98.1 102 22 108/43 100 Room Air 08/01/17 15:45 97.9 119 24 113/52 100 Room Air 08/01/17 13:30 97.9 55 24 105/41 100 Room Air 08/01/17 12:08 97.9 116 40 147/69 100 Room Air 08/01/17 11:38 97.9 104 16 138/60 98 Room Air Intake and Output 08/02/17 08/03/17 19:00 07:00 Intake Total 20 ml Output Total 0 ml Balance 20 ml Other 20 ml Output Urine Total 0 ml Laboratory Tests 08/01/17 11:55: White Blood Count 18.5H, Red Blood Count 4.70, Hemoglobin 14.5, Hematocrit 47.8 , Mean Corpuscular Volume 102H, Mean Corpuscular Hemoglobin 30.8, Mean Corpuscular Hemoglobin Concent 30.2L, Red Cell Distribution Width 12.8, Platelet Count 474H, Mean Platelet Volume 6.2L, Neutrophils (%) (Auto) , Lymphocytes (%) (Auto) , Monocytes (%) (Auto) , Eosinophils (%) (Auto) , Basophils (%) (Auto) , Differential Total Cells Counted 100, Neutrophils % ( Manual) 88H, Lymphocytes % (Manual) 8L, Monocytes % (Manual) 3, Eosinophils % ( Manual) 0, Basophils % (Manual) 1, Band Neutrophils 0, Platelet Estimate Adequate, Platelet Morphology Normal, Red Blood Cell Morphology , Macrocytosis 1 +, Sodium Level 118*L, Potassium Level 7.2*H, Chloride Level 72L, Carbon Dioxide Level 6*L, Anion Gap 40H, Blood Urea Nitrogen 35H, Creatinine 2.0H, Estimat Glomerular Filtration Rate 42.4, Glucose Level 1073*H, Lactic Acid Level 2.60H, Calcium Level 9.2, Magnesium Level 2.5, Total Bilirubin 0.5, Aspartate Amino Transf (AST/SGOT) 25, Alanine Aminotransferase (ALT/SGPT) 22, Alkaline Phosphatase 181H, Total Protein 8.3, Albumin 5.0, Globulin 3.3, Albumin /Globulin Ratio 1.5, Salicylates Level < 1L, Acetaminophen Level < 10L, Serum Alcohol < 10, Acetone Level Positive-moderate 9/8/17 11:56: Urine Color Pale yellow, Urine Appearance Clear, Urine pH 5, Urine Specific [place] 1.015, Urine Protein 2+H, Urine Glucose (UA) 4+H, Urine Ketones 4+H, Urine Occult Blood 1+H, Urine Nitrite Negative, Urine Bilirubin Negative, Urine Urobilinogen Normal, Urine Leukocyte Esterase Negative, Urine RBC 2-4H, Urine WBC 0-2, Urine Squamous Epithelial Cells None, Urine Bacteria Occasional, Urine Opiates Screen Negative, Urine Barbiturates Screen PositiveH, Phencyclidine (PCP ) Screen Negative, Urine Amphetamines Screen Negative, Urine Benzodiazepines Screen Negative, Urine Cocaine Screen PositiveH, Urine Marijuana (THC) Screen Negative 08/01/17 14:15: Sodium Level 126L, Potassium Level 6.6*H, Chloride Level 83L, Carbon Dioxide Level 4*L, Anion Gap 39H, Blood Urea Nitrogen 35H, Creatinine 1.9H, Estimat Glomerular Filtration Rate 45.0, Glucose Level 758#*H, Calcium Level 8.9, Total Bilirubin 0.3, Aspartate Amino Transf (AST/SGOT) 30, Alanine Aminotransferase ( ALT/SGPT) 25, Alkaline Phosphatase 175H, Total Protein 7.8, Albumin 4.7, Globulin 3.1, Albumin/Globulin Ratio 1.5 08/01/17 15:01: Lactic Acid Level 1.50 08/01/17 19:25: Sodium Level 137#, Potassium Level 4.2, Chloride Level 102, Carbon Dioxide Level 12L, Anion Gap 23H, Blood Urea Nitrogen 24H, Creatinine 1.5H, Estimat Glomerular Filtration Rate 59.1, Glucose Level 81#, Calcium Level 8.5L 08/02/17 05:15: Sodium Level 139, Potassium Level 3.8, Chloride Level 102, Carbon Dioxide Level 17L, Anion Gap 20H, Blood Urea Nitrogen 15, Creatinine 1.2, Estimat Glomerular Filtration Rate > 60, Glucose Level 116H, Calcium Level 8.6, Prothrombin Time 10.8, Prothromb Time International Ratio 1.0, Activated Partial Thromboplast Time 27, Hemoglobin A1c 8.2H, Phosphorus Level 2.4L, Total Bilirubin 0.6, Direct Bilirubin 0.1, Aspartate Amino Transf (AST/SGOT) 18, Alanine Aminotransferase (ALT/SGPT) 17, Alkaline Phosphatase 121, Total Protein 6.3L, Albumin 3.8, Globulin 2.5, Albumin/Globulin Ratio 1.5 Height (Feet): 5 Height (Inches): 10.00 Weight (Pounds): 150 General Appearance: alert EENT: normal ENT inspection Neck: normal alignment Cardiovascular: normal peripheral pulses, normal rate, regular rhythm Respiratory/Chest: chest wall non-tender, lungs clear, normal breath sounds Abdomen: normal bowel sounds, non tender, soft Extremities: normal inspection Edema: no edema noted Arm (L), no edema noted Arm (R), no edema noted Leg (L), no edema noted Leg (R), no edema noted Pedal (L), no edema noted Pedal (R), no edema noted Generalized Neurologic: responsive, motor weakness Skin: normal pigmentation, warm/dry SIGIFREDO ABREU Aug 02, 2017 09:16
[2017-08-02 13:15] LABS: ANION GAP 15 (5-15); CALCIUM 8.5 mg/dL (8.6-10.2); CARBON DIOXIDE 20 mEQ/L (20-30); CHLORIDE 100 mEQ/L (98-107); GLOMERULAR FILTRATION RATE > 60 mL/min (>60); HEMOLYSIS 8; POTASSIUM 3.8 mEQ/L (3.4-4.9); SODIUM 135 mEQ/L (135-145)
[2017-08-02] MEDS: Morphine Sulfate 4mg/ml Inj IVP PRN ×3 (13:32→22:28)
[2017-08-02] MEDS: Vancomycin 1.25 GM in NS 275 ML IVPB SCH (15:33)
[2017-08-02 15:57] LABS: BASOPHILS % (AUTO) 0.7 % (0.0-2.0); EOSINOPHILS % (AUTO) 0.3 % (0.0-3.0); LYMPHOCYTES % (AUTO) 28.7 % (20.0-45.0); MEAN CORPUSCULAR HEMOGLOBIN 32.2 PG (27.0-31.0); MEAN CORPUSCULAR HGB CONC 35.2 G/DL (32.0-36.0); MEAN CORPUSCULAR VOLUME 92 FL (80-99); MEAN PLATELET VOLUME 5.5 FL (6.5-10.1); MONOCYTES % (AUTO) 5.9 % (1.0-10.0); NEUTROPHILS % (AUTO) 64.4 % (45.0-75.0); PLATELET COUNT 320 K/UL (150-450); RED BLOOD COUNT 3.95 M/UL (4.70-6.10); RED CELL DISTRIBUTION WIDTH 11.6 % (11.6-14.8); WHITE BLOOD COUNT 6.3 K/UL (4.8-10.8)
[2017-08-02 16:06] LABS: ANION GAP 15 (5-15); CALCIUM 8.6 mg/dL (8.6-10.2); CARBON DIOXIDE 21 mEQ/L (20-30); CHLORIDE 102 mEQ/L (98-107); GLOMERULAR FILTRATION RATE > 60 mL/min (>60); HEMOLYSIS 5; POTASSIUM 3.3 mEQ/L (3.4-4.9); SODIUM 138 mEQ/L (135-145)
--- NOTE | 2017-08-02 17:11 | Infectious Diseases Prog Note ---
Assessment/Plan Problems: (1) Sepsis Assessment & Plan: improved on vancomycin and cefepime empirically pending blood culture (2) DKA, type 1 Assessment & Plan: on insulin drip, monitor glucose level closely (3) Dehydration Assessment & Plan: continue IVF, for hydration monitor electrolytes (4) Hyperkalemia Assessment & Plan: due to DKA, monitor potassium level closely , may need replacement if drops with insulin treatment (5) Drug abuse Assessment & Plan: used needle in the past , will screen him for HIV and hepatitis , needs counseling Subjective Constitutional: Reports: no symptoms HEENT: Reports: no symptoms Respiratory: Reports: no symptoms Breasts: Reports: no symptoms Cardiovascular: Reports: no symptoms Gastrointestinal/Abdominal: Reports: no symptoms Genitourinary: Reports: no symptoms Neurologic: Reports: no symptoms Allergies: Coded Allergies: No Known Allergies (Unverified , 08/01/17) Objective Vital Signs Last 24 Hour Vital Signs Date Time Temp Pulse Resp B/P (MAP) Pulse Ox O2 Delivery O2 Flow Rate FiO2 08/02/17 17:00 61 25 107/41 100 Room Air 08/02/17 16:00 58 08/02/17 16:00 98.8 61 21 107/49 100 Room Air 08/02/17 15:00 60 21 97/45 100 Room Air 08/02/17 14:00 63 22 103/45 100 Room Air 08/02/17 13:00 69 24 105/47 100 Room Air 08/02/17 12:00 69 08/02/17 12:00 98.5 70 24 99/44 100 Room Air 08/02/17 11:43 81 16 Room Air 21 08/02/17 11:00 74 24 97/36 100 Room Air 08/02/17 10:00 78 22 106/39 99 Room Air 08/02/17 09:00 70 24 110/40 100 Room Air 08/02/17 08:00 84 08/02/17 08:00 98.0 78 17 109/52 100 Room Air 08/02/17 07:00 85 24 88/33 100 Room Air 08/02/17 06:00 91 25 112/51 100 Room Air 08/02/17 05:00 84 24 99/64 100 Room Air 08/02/17 04:00 98.1 85 24 85/93 100 Room Air 08/02/17 04:00 79 08/02/17 03:00 81 18 90/43 100 Room Air 08/02/17 02:00 88 22 93/54 100 Room Air 08/02/17 01:05 91 25 96/49 100 Room Air 08/02/17 00:00 98.7 85 21 86/33 99 Room Air 08/01/17 23:23 88 08/01/17 23:00 90 24 103/50 99 Room Air 08/01/17 22:00 99 28 111/50 100 Room Air 08/01/17 21:00 97 26 113/38 100 Room Air 08/01/17 20:00 98.9 102 30 119/54 99 Room Air 08/01/17 19:23 107 08/01/17 19:00 105 25 106/52 97 Room Air 08/01/17 18:00 109 25 116/53 97 Room Air Height (Feet): 5 Height (Inches): 10.00 Weight (Pounds): 150 General Appearance: WD/WN, no acute distress HEENT: normocephalic, atraumatic, anicteric, mucous membranes moist Respiratory/Chest: chest wall non-tender, lungs clear, normal breath sounds, no respiratory distress Cardiovascular: normal peripheral pulses, normal rate, regular rhythm, no gallop/murmur, no JVD Abdomen: normal bowel sounds, soft, non tender, no organomegaly, non distended , no mass Extremities: no cyanosis, no clubbing Skin: no rash, no lesions Neurologic/Psychiatric: alert, oriented x 3 Laboratory Tests Test 08/01/17 19:25 08/02/17 05:15 08/02/17 12:45 08/02/17 15:40 Sodium Level 137 mEQ/L (135-145) # 139 mEQ/L (135-145) 135 mEQ/L (135-145) 138 mEQ/L (135-145) Potassium Level 4.2 mEQ/L (3.4-4.9) 3.8 mEQ/L (3.4-4.9) 3.8 mEQ/L (3.4-4.9) 3.3 mEQ/L (3.4-4.9) L Chloride Level 102 mEQ/L (98-107) 102 mEQ/L (98-107) 100 mEQ/L (98-107) 102 mEQ/L (98-107) Carbon Dioxide Level 12 mEQ/L (20-30) L 17 mEQ/L (20-30) L 20 mEQ/L (20-30) 21 mEQ/L (20-30) Anion Gap 23 (5-15) H 20 (5-15) H 15 (5-15) 15 (5-15) Blood Urea Nitrogen 24 mg/dL (7-23) H 15 mg/dL (7-23) 10 mg/dL (7-23) 8 mg/dL (7-23) Creatinine 1.5 mg/dL (0.7-1.2) H 1.2 mg/dL (0.7-1.2) 1.0 mg/dL (0.7-1.2) 1.0 mg/dL (0.7-1.2) Estimat Glomerular Filtration Rate 59.1 mL/min (>60) > 60 mL/min (>60) > 60 mL/min (>60) > 60 mL/min (>60) Glucose Level 81 mg/dL (74-106) # 116 mg/dL (74-106) H 100 mg/dL (74-106) 89 mg/dL (74-106) Calcium Level 8.5 mg/dL (8.6-10.2) L 8.6 mg/dL (8.6-10.2) 8.5 mg/dL (8.6-10.2) L 8.6 mg/dL (8.6-10.2) Prothrombin Time 10.8 SEC (9.30-11.50) Prothromb Time International Ratio 1.0 (0.9-1.1) Activated Partial Thromboplast Time 27 SEC (23-33) Hemoglobin A1c 8.2 % (< 6.0) H Phosphorus Level 2.4 mg/dL (2.5-4.8) L Total Bilirubin 0.6 mg/dL (0.0-1.2) Direct Bilirubin 0.1 mg/dL (0.1-0.3) Aspartate Amino Transf (AST/SGOT) 18 U/L (5-40) Alanine Aminotransferase (ALT/SGPT) 17 U/L (3-41) Alkaline Phosphatase 121 U/L (40-129) Total Protein 6.3 g/dL (6.6-8.7) L Albumin 3.8 g/dL (3.5-5.2) Globulin 2.5 g/dL Albumin/Globulin Ratio 1.5 (1.0-2.7) Hepatitis A IgM Antibody Pending Hepatitis B Surface Antigen Pending Hepatitis B Core IgM Antibody Pending Hepatitis C Antibody Pending HIV (1&2) Antibody Rapid Negative (NEGATIVE) White Blood Count 6.3 K/UL (4.8-10.8) # Red Blood Count 3.95 M/UL (4.70-6.10) L Hemoglobin 12.7 G/DL (14.2-18.0) L Hematocrit 36.2 % (42.0-52.0) L Mean Corpuscular Volume 92 FL (80-99) # Mean Corpuscular Hemoglobin 32.2 PG (27.0-31.0) H Mean Corpuscular Hemoglobin Concent 35.2 G/DL (32.0-36.0) Red Cell Distribution Width 11.6 % (11.6-14.8) Platelet Count 320 K/UL (150-450) Mean Platelet Volume 5.5 FL (6.5-10.1) L Neutrophils (%) (Auto) 64.4 % (45.0-75.0) Lymphocytes (%) (Auto) 28.7 % (20.0-45.0) Monocytes (%) (Auto) 5.9 % (1.0-10.0) Eosinophils (%) (Auto) 0.3 % (0.0-3.0) Basophils (%) (Auto) 0.7 % (0.0-2.0) Current Medications Medications (Trade) Dose Ordered Sig/Alfredo Route PRN Reason Start Time Stop Time Status Last Admin Dose Admin Acetaminophen (Tylenol) 650 mg Q4H PRN ORAL Fever 08/01/17 14:00 08/31/17 13:59 Albuterol/ Ipratropium (DuoNeb 0.5-3(2.5)mg/3ml) 3 ml Q4H PRN HHN Shortness of Breath 08/01/17 14:00 08/06/17 13:59 Cefepime HCl 1 gm/ Sodium Chloride 55 ml @ 110 mls/hr EVERY 12 HOURS IVPB 08/01/17 21:00 08/08/17 20:59 08/02/17 09:05 Dextrose (Dextrose 50%) STAT PRN IV Hypoglycemia 08/02/17 15:15 09/01/17 15:14 Dextrose/Sodium Chloride 1,000 ml @ 100 mls/hr Q10H IV 08/02/17 16:00 09/01/17 15:59 08/02/17 15:33 Heparin Sodium (Porcine) (Heparin 5000 units/ml) 5,000 units EVERY 12 HOURS SUBQ 08/01/17 21:00 08/31/17 20:59 08/02/17 09:08 Insulin Aspart (NovoLOG) BEFORE MEALS AND HS SUBQ 08/02/17 16:30 09/01/17 16:29 Insulin Aspart (NovoLOG) 10 units NOVOTIAC SUBQ 08/02/17 16:50 09/01/17 16:49 Insulin Detemir (Levemir) 15 units Q12HR SUBQ 08/02/17 21:00 09/01/17 20:59 Lorazepam (Ativan 2mg/ml 1ml) 2 mg Q2H PRN IV agitation 08/01/17 14:00 08/08/17 13:59 Morphine Sulfate (Morphine Sulfate) 4 mg Q4H PRN IVP Severe Pain (Pain Scale 7-10) 08/01/17 14:00 08/08/17 13:59 08/02/17 13:32 Nitroglycerin (Ntg) 0.4 mg Q5M PRN SL Prn Chest Pain 08/01/17 14:00 08/31/17 13:59 Ondansetron HCl (Zofran) 4 mg Q6H PRN IVP Nausea & Vomiting 08/01/17 14:00 08/31/17 13:59 Phosphorus (Phospha 250 Neutral) 500 mg FOUR TIMES A DAY ORAL 08/02/17 09:00 08/03/17 08:59 08/02/17 13:27 Polyethylene Glycol (Miralax) 17 gm DAILYPRN PRN ORAL Constipation 08/01/17 14:00 08/31/17 13:59 Vancomycin HCl (Vanco rx to dose) 1 ea DAILY PRN MISC Per rx protocol 08/01/17 18:15 08/31/17 18:14 Vancomycin HCl 1.25 gm/Sodium Chloride 275 ml @ 183.333 mls/hr Q12HR@0300,1500 IVPB 08/02/17 15:00 08/07/17 14:59 08/02/17 15:33 Jan Webber M.D. Aug 02, 2017 17:11
[2017-08-02] MEDS: NovoLOG Insulin Flexpen SUBQ SCH ×3 (17:24→21:05)
[2017-08-02] MEDS ORDERED: Levemir Flexpen SUBQ SCH (21:00)
[2017-08-02] MEDS: LORazepam Inj 2mg/ml 1ml IV PRN (21:20)
[2017-08-02] MEDS ORDERED: D5 1/2NS 1,000 ML IV SCH (22:45)
[2017-08-03] VITALS (24 sets, daily range): BP systolic 95–144; BP diastolic 40–93
[2017-08-03] MEDS: Vancomycin 1.25 GM in NS 275 ML IVPB SCH ×2 (03:03→15:00)
[2017-08-03] MEDS: D5 1/2NS 1,000 ML IV SCH (03:03)
[2017-08-03 05:14] LABS: BASOPHILS % (AUTO) 1.2 % (0.0-2.0); EOSINOPHILS % (AUTO) 0.8 % (0.0-3.0); LYMPHOCYTES % (AUTO) 39.8 % (20.0-45.0); MEAN CORPUSCULAR HEMOGLOBIN 32.1 PG (27.0-31.0); MEAN CORPUSCULAR HGB CONC 34.4 G/DL (32.0-36.0); MEAN CORPUSCULAR VOLUME 93 FL (80-99); MEAN PLATELET VOLUME 6.2 FL (6.5-10.1); MONOCYTES % (AUTO) 7.8 % (1.0-10.0); NEUTROPHILS % (AUTO) 50.6 % (45.0-75.0); PLATELET COUNT 297 K/UL (150-450); RED CELL DISTRIBUTION WIDTH 11.9 % (11.6-14.8); WHITE BLOOD COUNT 5.3 K/UL (4.8-10.8)
[2017-08-03 05:46] LABS: ALANINE AMINOTRANSFERASE 15 U/L (3-41); ALBUMIN/GLOBULIN RATIO 1.4 (1.0-2.7); ANION GAP 13 (5-15); ASPARTATE AMINO TRANSFERASE 15 U/L (5-40); CALCIUM 8.8 mg/dL (8.6-10.2); CARBON DIOXIDE 23 mEQ/L (20-30); CHLORIDE 104 mEQ/L (98-107); CREATININE 0.9 mg/dL (0.7-1.2); CRP QUANT 0.6 mg/dL (< 0.5); GLOMERULAR FILTRATION RATE > 60 mL/min (>60); HEMOLYSIS 6; MAGNESIUM 1.9 mg/dL (1.7-2.5); PHOSPHORUS 3.2 mg/dL (2.5-4.8); POTASSIUM 3.8 mEQ/L (3.4-4.9); SODIUM 140 mEQ/L (135-145); TOTAL PROTEIN 5.8 g/dL (6.6-8.7)
[2017-08-03 06:08] LABS: ERYTHROCYTE SEDIMENTATION RATE 20 MM/HR (0-15)
[2017-08-03] MEDS: NovoLOG Insulin Flexpen SUBQ SCH ×7 (06:31→20:37)
[2017-08-03] MEDS: Morphine Sulfate 4mg/ml Inj IVP PRN ×4 (06:43→21:51)
--- NOTE | 2017-08-03 07:22 | Pulmonolgy Critical Care Note ---
Critical Care - Asmt/Plan Assessment/Plan: ASSESSMENT DKA Sepsis Dehydration ARF Acute hypo Na Acute hyperkalemia Substance abuse /cocaine PLAN OF CARE IVF, decrease rate and change to IV w/out dextrose Generous IV hydration off insulin gtt on Levemir, premeal short acting Insulin and SS prn UsC1p-0.2 - not at goal encourage compliance with insulin regimen at home and close follow up with PCP Monitor lytes, stable now Avoid nephrotoxic Empiric abx, fup with cx blood cx preliminary negative, no leuk no fever ID follows O2 HHN prn, stable pulse ox on RA CXR negative DVT prophylaxis Urine tox + barbiturates, cocaine 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 DVT prophylaxis transfer to [facility] floor dc plan for tomorrow case discussed and evaluated by supervising physician Critical Care - Objective Last 24 Hour Vital Signs Date Time Temp Pulse Resp B/P (MAP) Pulse Ox O2 Delivery O2 Flow Rate FiO2 08/03/17 07:09 56 18 113/55 100 Room Air 08/03/17 06:00 62 20 115/68 100 Room Air 08/03/17 05:04 60 20 105/45 100 Room Air 08/03/17 04:00 98.0 54 20 111/54 100 Room Air 08/03/17 04:00 52 08/03/17 03:00 52 20 103/48 100 Room Air 08/03/17 02:00 55 18 98/40 100 Room Air 08/03/17 01:00 60 18 96/42 100 Room Air 08/03/17 00:00 98.2 67 19 95/43 100 Room Air 08/03/17 00:00 67 08/02/17 23:00 78 20 103/41 100 Room Air 08/02/17 22:00 75 20 102/39 100 Room Air 08/02/17 21:00 72 22 111/45 100 Room Air 08/02/17 20:06 98.6 65 20 117/53 100 Room Air 08/02/17 20:02 65 08/02/17 19:10 73 14 Room Air 08/02/17 19:00 68 20 104/38 99 Room Air 08/02/17 18:00 77 25 121/62 99 Room Air 08/02/17 17:00 61 25 107/41 100 Room Air 08/02/17 16:00 58 08/02/17 16:00 98.8 61 21 107/49 100 Room Air 08/02/17 15:00 60 21 97/45 100 Room Air 08/02/17 14:00 63 22 103/45 100 Room Air 08/02/17 13:00 69 24 105/47 100 Room Air 08/02/17 12:00 69 08/02/17 12:00 98.5 70 24 99/44 100 Room Air 08/02/17 11:43 81 16 Room Air 21 08/02/17 11:00 74 24 97/36 100 Room Air 08/02/17 10:00 78 22 106/39 99 Room Air 08/02/17 09:00 70 24 110/40 100 Room Air 08/02/17 08:00 84 08/02/17 08:00 98.0 78 17 109/52 100 Room Air Status: awake Condition: improving HEENT: atraumatic, normocephalic Neck: full ROM Lungs: clear Heart: HR/BP stable Abdomen: soft, non-tender, active bowel sounds Extremities: no C/C/E Micro: Microbiology Date/Time Source Procedure Growth Status 08/01/17 14:20 Blood Blood Culture - Preliminary NO GROWTH AFTER 24 HOURS Resulted 08/01/17 14:05 Blood Blood Culture - Preliminary NO GROWTH AFTER 24 HOURS Resulted 08/01/17 15:13 Rectum VRE Culture - Final NO VANCOMYCIN RESISTANT ENTEROCOCCUS ... Complete Accucheck: 190 Critical Care - Subjective ROS Limited/Unobtainable: No Interval Events: off insulin gtt lytes stable renal parameters stable no leukocytosis, no fever Condition: improving IV Access: peripheral EKG Rhythm: Sinus Rhythm FI02: 21 Sputum Amount: None I&O: Intake and Output 08/03/17 08/04/17 19:00 07:00 Intake Total 100 ml Balance 100 ml Intake Oral 0 ml IV Total 100 ml CXR: no acute findings Jewell Denis NP (Vanchtein) Aug 03, 2017 07:22
--- NOTE | 2017-08-03 08:20 | General Progress Note ---
Assessment/Plan Problem List: (1) Dehydration ICD Codes: E86.0 - Dehydration SNOMED: 56868696 (2) Hyperkalemia ICD Codes: E87.5 - Hyperkalemia SNOMED: 77941224 (3) Sepsis ICD Codes: A41.9 - Sepsis, unspecified organism SNOMED: 95786244 (4) DKA, type 1 ICD Codes: E10.10 - Type 1 diabetes mellitus with ketoacidosis without coma SNOMED: 52093401, 160130696 Status: progressing Assessment/Plan abx bs control detox cbc bmp am Subjective Allergies: Coded Allergies: No Known Allergies (Unverified , 08/01/17) All Systems: reviewed and negative except above Subjective calm in bed in icu Objective Last 24 Hour Vital Signs Date Time Temp Pulse Resp B/P (MAP) Pulse Ox O2 Delivery O2 Flow Rate FiO2 08/03/17 08:00 68 08/03/17 08:00 98.2 58 20 97/41 98 Room Air 08/03/17 07:09 56 18 113/55 100 Room Air 08/03/17 06:00 62 20 115/68 100 Room Air 08/03/17 05:04 60 20 105/45 100 Room Air 08/03/17 04:00 98.0 54 20 111/54 100 Room Air 08/03/17 04:00 52 08/03/17 03:00 52 20 103/48 100 Room Air 08/03/17 02:00 55 18 98/40 100 Room Air 08/03/17 01:00 60 18 96/42 100 Room Air 08/03/17 00:00 98.2 67 19 95/43 100 Room Air 08/03/17 00:00 67 08/02/17 23:00 78 20 103/41 100 Room Air 08/02/17 22:00 75 20 102/39 100 Room Air 08/02/17 21:00 72 22 111/45 100 Room Air 08/02/17 20:06 98.6 65 20 117/53 100 Room Air 08/02/17 20:02 65 08/02/17 19:10 73 14 Room Air 08/02/17 19:00 68 20 104/38 99 Room Air 08/02/17 18:00 77 25 121/62 99 Room Air 08/02/17 17:00 61 25 107/41 100 Room Air 08/02/17 16:00 58 08/02/17 16:00 98.8 61 21 107/49 100 Room Air 08/02/17 15:00 60 21 97/45 100 Room Air 08/02/17 14:00 63 22 103/45 100 Room Air 08/02/17 13:00 69 24 105/47 100 Room Air 08/02/17 12:00 69 08/02/17 12:00 98.5 70 24 99/44 100 Room Air 08/02/17 11:43 81 16 Room Air 21 08/02/17 11:00 74 24 97/36 100 Room Air 08/02/17 10:00 78 22 106/39 99 Room Air 08/02/17 09:00 70 24 110/40 100 Room Air Intake and Output 08/03/17 08/04/17 19:00 07:00 Intake Total 100 ml Balance 100 ml Intake Oral 0 ml IV Total 100 ml Laboratory Tests 08/02/17 12:45: Sodium Level 135, Potassium Level 3.8, Chloride Level 100, Carbon Dioxide Level 20, Anion Gap 15, Blood Urea Nitrogen 10, Creatinine 1.0, Estimat Glomerular Filtration Rate > 60, Glucose Level 100, Calcium Level 8.5L, Hepatitis A IgM Antibody [Pending], Hepatitis B Surface Antigen [Pending], Hepatitis B Core IgM Antibody [Pending], Hepatitis C Antibody [Pending], HIV (1&2) Antibody Rapid Negative 08/02/17 15:40: Sodium Level 138, Potassium Level 3.3L, Chloride Level 102, Carbon Dioxide Level 21, Anion Gap 15, Blood Urea Nitrogen 8, Creatinine 1.0, Estimat Glomerular Filtration Rate > 60, Glucose Level 89, Calcium Level 8.6, White Blood Count 6.3#, Red Blood Count 3.95L, Hemoglobin 12.7L, Hematocrit 36.2L, Mean Corpuscular Volume 92#, Mean Corpuscular Hemoglobin 32.2H, Mean Corpuscular Hemoglobin Concent 35.2, Red Cell Distribution Width 11.6, Platelet Count 320, Mean Platelet Volume 5.5L, Neutrophils (%) (Auto) 64.4, Lymphocytes ( %) (Auto) 28.7, Monocytes (%) (Auto) 5.9, Eosinophils (%) (Auto) 0.3, Basophils (%) (Auto) 0.7 08/03/17 04:00: Sodium Level 140, Potassium Level 3.8, Chloride Level 104, Carbon Dioxide Level 23, Anion Gap 13, Blood Urea Nitrogen 10, Creatinine 0.9, Estimat Glomerular Filtration Rate > 60, Glucose Level 216#H, Calcium Level 8.8, White Blood Count 5.3, Red Blood Count 4.00L, Hemoglobin 12.8L, Hematocrit 37.3L, Mean Corpuscular Volume 93, Mean Corpuscular Hemoglobin 32.1H, Mean Corpuscular Hemoglobin Concent 34.4, Red Cell Distribution Width 11.9, Platelet Count 297, Mean Platelet Volume 6.2L, Neutrophils (%) (Auto) 50.6, Lymphocytes (%) (Auto) 39.8, Monocytes (%) (Auto) 7.8, Eosinophils (%) (Auto) 0.8, Basophils (%) (Auto ) 1.2, Erythrocyte Sedimentation Rate 20H, Phosphorus Level 3.2, Magnesium Level 1.9, Total Bilirubin 0.2, Aspartate Amino Transf (AST/SGOT) 15, Alanine Aminotransferase (ALT/SGPT) 15, Alkaline Phosphatase 108, C-Reactive Protein, Quantitative 0.6H, Total Protein 5.8L, Albumin 3.4L, Globulin 2.4, Albumin/ Globulin Ratio 1.4 Height (Feet): 5 Height (Inches): 10.00 Weight (Pounds): 150 General Appearance: lethargic EENT: normal ENT inspection Neck: normal alignment Cardiovascular: normal peripheral pulses, normal rate, regular rhythm Respiratory/Chest: chest wall non-tender, lungs clear, normal breath sounds Abdomen: normal bowel sounds, non tender, soft Extremities: normal inspection Edema: no edema noted Arm (L), no edema noted Arm (R), no edema noted Leg (L), no edema noted Leg (R), no edema noted Pedal (L), no edema noted Pedal (R), no edema noted Generalized Neurologic: motor weakness Skin: normal pigmentation, warm/dry SIGIFREDO ABREU Aug 03, 2017 08:20
[2017-08-03] MEDS: Cefepime HCl 1 GM in NS 55 ML IVPB SCH ×2 (08:58→20:52)
[2017-08-03] MEDS ORDERED: Levemir Flexpen SUBQ SCH (09:00)
[2017-08-03] MEDS: Heparin 5000 units/ml inj SUBQ SCH ×2 (09:07→20:53)
[2017-08-03] MEDS: Levemir Flexpen SUBQ SCH ×2 (09:10→20:53)
--- NOTE | 2017-08-03 11:42 | General Progress Note ---
Progress Note Progress Note [id number] full note dictated MELANIE MAYS Aug 03, 2017 11:42
[2017-08-03 15:01] LABS: CREATININE, RANDOM URINE 80.7 mg/dL
[2017-08-03] MEDS ORDERED: D5 1/2NS 1,000 ML IV SCH (16:00)
--- NOTE | 2017-08-03 16:24 | Cardiology Progress Note ---
Assessment/Plan Assessment/Plan The patient is seen and examined, full consult note will be dictated. Objective Last 24 Hour Vital Signs Date Time Temp Pulse Resp B/P (MAP) Pulse Ox O2 Delivery O2 Flow Rate FiO2 08/03/17 15:00 61 19 127/51 100 Room Air 08/03/17 14:00 60 18 132/53 99 Room Air 08/03/17 13:00 82 21 116/66 100 Room Air 08/03/17 12:00 67 08/03/17 12:00 97.7 70 26 113/54 100 Room Air 08/03/17 11:00 85 16 104/63 98 Room Air 08/03/17 10:00 64 20 115/65 98 Room Air 08/03/17 09:00 75 21 136/54 100 Room Air 08/03/17 08:00 68 08/03/17 08:00 98.2 58 20 97/41 98 Room Air 08/03/17 07:40 58 16 Room Air 08/03/17 07:09 56 18 113/55 100 Room Air 08/03/17 06:00 62 20 115/68 100 Room Air 08/03/17 05:04 60 20 105/45 100 Room Air 08/03/17 04:00 98.0 54 20 111/54 100 Room Air 08/03/17 04:00 52 08/03/17 03:00 52 20 103/48 100 Room Air 08/03/17 02:00 55 18 98/40 100 Room Air 08/03/17 01:00 60 18 96/42 100 Room Air 08/03/17 00:00 98.2 67 19 95/43 100 Room Air 08/03/17 00:00 67 08/02/17 23:00 78 20 103/41 100 Room Air 08/02/17 22:00 75 20 102/39 100 Room Air 08/02/17 21:00 72 22 111/45 100 Room Air 08/02/17 20:06 98.6 65 20 117/53 100 Room Air 08/02/17 20:02 65 08/02/17 19:10 73 14 Room Air 08/02/17 19:00 68 20 104/38 99 Room Air 08/02/17 18:00 77 25 121/62 99 Room Air 08/02/17 17:00 61 25 107/41 100 Room Air Intake and Output 08/03/17 08/04/17 19:00 07:00 Intake Total 2670 ml Output Total 650 ml Balance 2020 ml Intake Oral 2080 ml IV Total 580 ml Other 10 ml Output Urine Total 650 ml Laboratory Tests Test 08/03/17 04:00 08/03/17 14:15 08/03/17 14:30 White Blood Count 5.3 K/UL (4.8-10.8) Red Blood Count 4.00 M/UL (4.70-6.10) L Hemoglobin 12.8 G/DL (14.2-18.0) L Hematocrit 37.3 % (42.0-52.0) L Mean Corpuscular Volume 93 FL (80-99) Mean Corpuscular Hemoglobin 32.1 PG (27.0-31.0) H Mean Corpuscular Hemoglobin Concent 34.4 G/DL (32.0-36.0) Red Cell Distribution Width 11.9 % (11.6-14.8) Platelet Count 297 K/UL (150-450) Mean Platelet Volume 6.2 FL (6.5-10.1) L Neutrophils (%) (Auto) 50.6 % (45.0-75.0) Lymphocytes (%) (Auto) 39.8 % (20.0-45.0) Monocytes (%) (Auto) 7.8 % (1.0-10.0) Eosinophils (%) (Auto) 0.8 % (0.0-3.0) Basophils (%) (Auto) 1.2 % (0.0-2.0) Erythrocyte Sedimentation Rate 20 MM/HR (0-15) H Sodium Level 140 mEQ/L (135-145) Potassium Level 3.8 mEQ/L (3.4-4.9) Chloride Level 104 mEQ/L (98-107) Carbon Dioxide Level 23 mEQ/L (20-30) Anion Gap 13 (5-15) Blood Urea Nitrogen 10 mg/dL (7-23) Creatinine 0.9 mg/dL (0.7-1.2) Estimat Glomerular Filtration Rate > 60 mL/min (>60) Glucose Level 216 mg/dL (74-106) #H Calcium Level 8.8 mg/dL (8.6-10.2) Phosphorus Level 3.2 mg/dL (2.5-4.8) Magnesium Level 1.9 mg/dL (1.7-2.5) Total Bilirubin 0.2 mg/dL (0.0-1.2) Aspartate Amino Transf (AST/SGOT) 15 U/L (5-40) Alanine Aminotransferase (ALT/SGPT) 15 U/L (3-41) Alkaline Phosphatase 108 U/L (40-129) C-Reactive Protein, Quantitative 0.6 mg/dL (< 0.5) H Total Protein 5.8 g/dL (6.6-8.7) L Albumin 3.4 g/dL (3.5-5.2) L Globulin 2.4 g/dL Albumin/Globulin Ratio 1.4 (1.0-2.7) Vancomycin Level Trough 6.1 ug/mL (5.0-12.0) Urine Eosinophils None seen Urine Random Creatinine Pending Urine Random Microalbumin Pending Urine Random Total Protein 9 mg/dL Urine Random Sodium 90 mmol/L Urine Creatinine 80.7 mg/dL Urine Microalbumin/Creatinine Ratio Pending Microbiology Date/Time Source Procedure Growth Status 08/01/17 14:20 Blood Blood Culture - Preliminary NO GROWTH AFTER 24 HOURS Resulted 08/01/17 14:05 Blood Blood Culture - Preliminary NO GROWTH AFTER 24 HOURS Resulted 08/01/17 15:13 Nasal Nares MRSA Culture - Final NO METHICILLIN RESISTANT STAPH AUREUS... Complete 08/01/17 15:13 Rectum VRE Culture - Final NO VANCOMYCIN RESISTANT ENTEROCOCCUS ... Complete [place] Aug 03, 2017 16:24
[2017-08-03] MEDS: Vancomycin 1 GM in NS 275 ML IVPB SCH (16:40)
[2017-08-03] MEDS ORDERED: D5 1/2NS 1000ml IV ONE (17:42)
[2017-08-03] MEDS ORDERED: 1/2 NS 1000ml IV ONE (17:42)
[2017-08-03] MEDS ORDERED: NS 275ml ONE (17:42)
[2017-08-03] MEDS ORDERED: Tubing IV Secondary IV ONE (17:42)
[2017-08-03] MEDS: LORazepam Inj 2mg/ml 1ml IV PRN (21:00)
--- NOTE | 2017-08-03 21:00 | Consultation ---
DATE OF CONSULTATION: 08/03/2017 ENDOCRINE CONSULTATION CONSULTING PHYSICIAN: Rachid Ahmadi M.D. REFERRING PHYSICIAN: Clyde Correa D.O. REASON FOR CONSULTATION: Diabetic ketoacidosis. HISTORY OF PRESENT ILLNESS: The patient is a 21-year-old male with history of type 1 diabetes x5 years, on insulin Lantus 35 units at bedtime and Humalog 20 units before each meal, both on insulin pen form. He has stopped using his insulin for the past three days and presented to the emergency department with diabetic ketoacidosis, started on IV fluid and IV insulin, admitted to the ICU, gap is closed. The patient had been residing in a detox program, which he left three days ago and did not find it useful and started doing the drugs again. PAST MEDICAL HISTORY: Type 1 diabetes and substance abuse. PAST SURGICAL HISTORY: None. FAMILY HISTORY: Negative for diabetes. SOCIAL HISTORY: He smokes. Does not drink. Does drugs. REVIEW OF SYSTEMS: As per HPI. LABORATORY DATA: WBC , hemoglobin 12, hematocrit 37, and platelets 297,000. Sodium 140, potassium 3.9, chloride 104, bicarbonate 23, BUN 10, creatinine 0.9, glucose high at 216. A1c 8.2. PHYSICAL EXAMINATION: GENERAL: He is awake and alert. VITAL SIGNS: Blood pressure 110/80, pulse 70, temperature 98.2, and respiratory rate 18. HEENT: Pupils are equal and reactive to light and accommodation. Sclerae are anicteric. NECK: No JVD. No thyromegaly. No bruits. LUNGS: Clear. HEART: Regular rate and rhythm. ABDOMEN: Positive bowel sounds. Soft. EXTREMITIES: No clubbing, cyanosis, or edema. DIAGNOSES: 1. Diabetic ketoacidosis, resolved. 2. Type 1 diabetes, out of control. 3. Substance abuse. 4. Leukocytosis, resolved. PLAN: 1. No need for IV insulin. 2. Levemir 15 units b.i.d. 3. NovoLog 12 units before meals t.i.d. 4. NovoLog sliding scale insulin at bedtime. 5. Further adjustment according to laboratory values. 6. I will leave the prescription for the patient in case the patient is discharged. Thank you for the courtesy of this consultation. Rachid Ahmadi M.D. DR: TOD JOB#: [id number] CC:
--- NOTE | 2017-08-03 22:45 | Consultation ---
DATE OF CONSULTATION: 08/03/2017 NEPHROLOGY CONSULTATION REFERRING PHYSICIAN: Clyde Correa D.O. REASON FOR CONSULTATION: Electrolyte abnormality and acute renal failure. HISTORY OF PRESENT ILLNESS: The patient is a 21-year-old male with a past medical history significant for substance abuse. Apparently, the patient was presented to [facility] with episodes of nausea, vomiting, and generalized weakness. The patient apparently used intravenous methamphetamine and crack cocaine. On the day of admission, he complained of shortness of breath. He was brought in to ER and found to have diabetic ketoacidosis and of course abnormal electrolytes. The patient consequently was admitted in the hospital. I was called for management of renal disease and electrolyte imbalance. PAST MEDICAL HISTORY: 1. History of diabetes. He has been using insulin for the last five years. 2. History of drug abuse. The patient was recently admitted in rehabilitation, but he has unfortunately rebounded. PAST SURGICAL HISTORY: None. ALLERGIES: No known drug allergies. SOCIAL HISTORY: Currently unemployed. Uses drugs on a daily basis. Denies any history of tobacco use. FAMILY HISTORY: Negative for any history of diabetes, hypertension, or chronic kidney disease. REVIEW OF SYSTEMS: General: He complained of generalized weakness. Denies any fever, chills, or night sweats. Head And Neck: Denies any dysphagia, odynophagia, blurry vision, headache, or neck stiffness. Pulmonary: No shortness of breath. No cough. No sputum. Cardiovascular: Denies any chest pain or palpitations. Gastrointestinal: He complained of nausea. No vomiting. No melena. No hematemesis. Genitourinary: Denies any dysuria, frequency, or hematuria. PHYSICAL EXAMINATION: VITAL SIGNS: The patient has temperature of 98 degrees, blood pressure of 133/55, pulse rate of 56, and respiratory rate of 18. HEAD AND NECK: No JVP. No LAD. No thyromegaly. Extraocular movement intact. Pupils are reactive to light and accommodation. LUNGS: Clear to auscultation. CARDIAC: Regular rate and rhythm. S1 and S2. No murmur. No rub. ABDOMEN: Soft, nontender, and nondistended. EXTREMITIES: No edema. No clubbing. No cyanosis. LABORATORY VALUES: The patient had WBC count of 5.3, hemoglobin of 12.8, hematocrit of 37, and platelet count of 279,000. Chemistry revealed sodium of 138, potassium 3.3, 102 chloride, 21 bicarbonate, BUN of 8, creatinine of 1, glucose of 89, and calcium of 8.6. AST of 15, ALT of 15, and alkaline phosphatase of 103. UA reveals specific gravity of 1.010, protein 2+, glucose 4+, and ketones 4+ on admission. ASSESSMENT: 1. Acute renal failure, which resolved at this time. 2. Hypokalemia. 3. Hyponatremia. 4. Proteinuria and hematuria, questionable diabetic nephropathy. 5. History of multiple drug abuse. PLAN: Plan for the patient to obtain UA. Check the random urine protein and creatinine ratio to calculate the proteinuria. Check the urine sodium and creatinine to calculate fractional excretion of sodium. I would monitor renal function and electrolytes closely. Replace electrolytes as needed. At the end, I would like to thank Dr. Clyde Correa for allowing me to participate in the care of this patient. Debra Naranjo M.D. DR: Carmencita JOB#: [id number] CC:
[2017-08-04] VITALS (16 sets, daily range): BP systolic 109–138; BP diastolic 56–87
[2017-08-04] MEDS: Vancomycin 1 GM in NS 275 ML IVPB SCH ×2 (00:05→08:51)
[2017-08-04 05:36] LABS: CALCIUM 8.7 mg/dL (8.6-10.2); CARBON DIOXIDE 26 mEQ/L (20-30); CHLORIDE 105 mEQ/L (98-107); CREATININE 0.6 mg/dL (0.7-1.2); GLOMERULAR FILTRATION RATE > 60 mL/min (>60); HEMOLYSIS 3; SODIUM 142 mEQ/L (135-145)
[2017-08-04 05:56] LABS: BASOPHILS % (AUTO) 1.3 % (0.0-2.0); EOSINOPHILS % (AUTO) 2.1 % (0.0-3.0); LYMPHOCYTES % (AUTO) 38.5 % (20.0-45.0); MEAN CORPUSCULAR HEMOGLOBIN 33.4 PG (27.0-31.0); MEAN CORPUSCULAR HGB CONC 35.8 G/DL (32.0-36.0); MEAN CORPUSCULAR VOLUME 93 FL (80-99); MONOCYTES % (AUTO) 9.2 % (1.0-10.0); NEUTROPHILS % (AUTO) 48.9 % (45.0-75.0); PLATELET COUNT 272 K/UL (150-450); RED BLOOD COUNT 3.88 M/UL (4.70-6.10); RED CELL DISTRIBUTION WIDTH 11.9 % (11.6-14.8); WHITE BLOOD COUNT 4.2 K/UL (4.8-10.8)
[2017-08-04 06:01] LABS: ANION GAP 11 (5-15); POTASSIUM 3.8 mEQ/L (3.4-4.9)
[2017-08-04] MEDS: NovoLOG Insulin Flexpen SUBQ SCH ×8 (06:09→21:00)
--- NOTE | 2017-08-04 08:27 | Nephrology Progress Note ---
Assessment/Plan Assessment 1. Acute renal failure, which resolved at this time. 2. Hypokalemia. 3. Hyponatremia. 4. History of multiple drug abuse. Plan plan based on urine study no evidence of proteinuria at this time continue current meds monitoring renal function avoid NSAID diabetic control Subjective Constitutional: Reports: no symptoms HEENT: Reports: no symptoms Genitourinary: Reports: no symptoms Neurologic/Psychiatric: Reports: no symptoms Objective Objective Last 24 Hour Vital Signs Date Time Temp Pulse Resp B/P (MAP) Pulse Ox O2 Delivery O2 Flow Rate FiO2 08/04/17 08:00 68 18 131/82 100 Room Air 08/04/17 08:00 66 08/04/17 07:00 78 18 109/60 100 Room Air 08/04/17 06:00 59 18 112/62 100 Room Air 08/04/17 05:00 56 18 112/74 100 Room Air 08/04/17 04:00 82 08/04/17 04:00 97.7 59 20 115/74 100 Room Air 08/04/17 03:00 59 18 111/63 100 Room Air 08/04/17 02:00 56 18 114/56 100 Room Air 08/04/17 01:00 56 18 113/63 100 Room Air 08/04/17 00:00 73 08/04/17 00:00 98.0 56 18 112/58 100 Room Air 08/03/17 23:00 83 18 113/56 100 Room Air 08/03/17 22:21 97.7 08/03/17 22:00 77 18 144/93 100 Room Air 08/03/17 21:00 72 18 124/72 100 Room Air 08/03/17 20:00 63 08/03/17 20:00 97.7 74 20 113/67 100 Room Air 08/03/17 19:30 64 16 Room Air 21 08/03/17 19:00 64 18 104/50 100 Room Air 08/03/17 18:00 67 21 110/53 100 Room Air 08/03/17 17:00 60 18 118/69 100 Room Air 08/03/17 16:00 58 08/03/17 16:00 98.0 58 18 125/65 100 Room Air 08/03/17 15:00 61 19 127/51 100 Room Air 08/03/17 14:00 60 18 132/53 99 Room Air 08/03/17 13:00 82 21 116/66 100 Room Air 08/03/17 12:00 67 08/03/17 12:00 97.7 70 26 113/54 100 Room Air 08/03/17 11:00 85 16 104/63 98 Room Air 08/03/17 10:00 64 20 115/65 98 Room Air 08/03/17 09:00 75 21 136/54 100 Room Air Intake and Output 08/04/17 08/05/17 19:00 07:00 Intake Total 195 ml Balance 195 ml Intake Oral 120 ml IV Total 75 ml Laboratory Tests 08/03/17 14:15: Vancomycin Level Trough 6.1 08/03/17 14:30: Urine Eosinophils None seen, Urine Random Creatinine [Pending], Urine Random Microalbumin [Pending], Urine Random Total Protein 9, Urine Random Sodium 90, Urine Creatinine 80.7, Urine Microalbumin/Creatinine Ratio [Pending] 08/04/17 04:30: White Blood Count 4.2L, Red Blood Count 3.88L, Hemoglobin 12.9L, Hematocrit 36.1L, Mean Corpuscular Volume 93, Mean Corpuscular Hemoglobin 33.4H, Mean Corpuscular Hemoglobin Concent 35.8, Red Cell Distribution Width 11.9, Platelet Count 272, Mean Platelet Volume 6.0L, Neutrophils (%) (Auto) 48.9, Lymphocytes ( %) (Auto) 38.5, Monocytes (%) (Auto) 9.2, Eosinophils (%) (Auto) 2.1, Basophils (%) (Auto) 1.3, Sodium Level 142, Potassium Level 3.8, Chloride Level 105, Carbon Dioxide Level 26, Anion Gap 11, Blood Urea Nitrogen 11, Creatinine 0.6L, Estimat Glomerular Filtration Rate > 60, Glucose Level 128H, Calcium Level 8.7 Height (Feet): 5 Height (Inches): 10.00 Weight (Pounds): 150 Objective HEAD AND NECK: No JVP. No LAD. No thyromegaly. Extraocular movement intact. Pupils are reactive to light and accommodation. LUNGS: Clear to auscultation. CARDIAC: Regular rate and rhythm. S1 and S2. No murmur. No rub. ABDOMEN: Soft, nontender, and nondistended. EXTREMITIES: No edema. No clubbing. No cyanosis. BAHMANI,MELANIE Aug 04, 2017 08:27
[2017-08-04] MEDS: Morphine Sulfate 4mg/ml Inj IVP PRN ×4 (08:28→22:28)
[2017-08-04] MEDS: Cefepime HCl 1 GM in NS 55 ML IVPB SCH (08:51)
[2017-08-04] MEDS: Heparin 5000 units/ml inj SUBQ SCH ×2 (08:56→21:11)
[2017-08-04] MEDS: Levemir Flexpen SUBQ SCH ×2 (08:57→20:18)
--- NOTE | 2017-08-04 10:48 | Pulmonology Progress Note ---
Assessment/Plan Problems: (1) DKA, type 1 (2) Dehydration Assessment/Plan improving transfer out of ICU continue sliding scale Subjective ROS Limited/Unobtainable: No Constitutional: Reports: no symptoms HEENT: Repors: no symptoms Allergies: Coded Allergies: No Known Allergies (Unverified , 08/01/17) Objective Last 24 Hour Vital Signs Date Time Temp Pulse Resp B/P (MAP) Pulse Ox O2 Delivery O2 Flow Rate FiO2 08/04/17 10:00 72 18 115/68 100 Room Air 08/04/17 09:00 98.2 68 18 125/80 100 Room Air 08/04/17 08:20 68 18 Room Air 21 08/04/17 08:00 68 18 131/82 100 Room Air 08/04/17 08:00 66 08/04/17 07:00 78 18 109/60 100 Room Air 08/04/17 06:00 59 18 112/62 100 Room Air 08/04/17 05:00 56 18 112/74 100 Room Air 08/04/17 04:00 82 08/04/17 04:00 97.7 59 20 115/74 100 Room Air 08/04/17 03:00 59 18 111/63 100 Room Air 08/04/17 02:00 56 18 114/56 100 Room Air 08/04/17 01:00 56 18 113/63 100 Room Air 08/04/17 00:00 73 08/04/17 00:00 98.0 56 18 112/58 100 Room Air 08/03/17 23:00 83 18 113/56 100 Room Air 08/03/17 22:21 97.7 08/03/17 22:00 77 18 144/93 100 Room Air 08/03/17 21:00 72 18 124/72 100 Room Air 08/03/17 20:00 63 08/03/17 20:00 97.7 74 20 113/67 100 Room Air 08/03/17 19:30 64 16 Room Air 08/03/17 19:00 64 18 104/50 100 Room Air 08/03/17 18:00 67 21 110/53 100 Room Air 08/03/17 17:00 60 18 118/69 100 Room Air 08/03/17 16:00 58 08/03/17 16:00 98.0 58 18 125/65 100 Room Air 08/03/17 15:00 61 19 127/51 100 Room Air 08/03/17 14:00 60 18 132/53 99 Room Air 08/03/17 13:00 82 21 116/66 100 Room Air 08/03/17 12:00 67 08/03/17 12:00 97.7 70 26 113/54 100 Room Air 08/03/17 11:00 85 16 104/63 98 Room Air Intake and Output 08/04/17 08/05/17 19:00 07:00 Intake Total 538.7 ml Output Total 400 ml Balance 138.7 ml Intake Oral 170 ml IV Total 368.7 ml Output Urine Total 400 ml # Voids 1 # Bowel Movements 1 General Appearance: WD/WN HEENT: normocephalic, atraumatic Respiratory/Chest: chest wall non-tender, lungs clear Cardiovascular: normal peripheral pulses, normal rate Abdomen: normal bowel sounds, no organomegaly Extremities: no cyanosis Skin: no rash, no ulcers Neurologic/Psychiatric: no motor/sensory deficits, abnormal gait, oriented x 3 Microbiology Date/Time Source Procedure Growth Status 08/01/17 14:20 Blood Blood Culture - Preliminary NO GROWTH AFTER 48 HOURS Resulted 08/01/17 14:05 Blood Blood Culture - Preliminary NO GROWTH AFTER 48 HOURS Resulted 08/01/17 15:13 Nasal Nares MRSA Culture - Final NO METHICILLIN RESISTANT STAPH AUREUS... Complete 08/01/17 15:13 Rectum VRE Culture - Final NO VANCOMYCIN RESISTANT ENTEROCOCCUS ... Complete Laboratory Tests 08/03/17 14:15: Vancomycin Level Trough 6.1 08/03/17 14:30: Urine Eosinophils None seen, Urine Random Creatinine [Pending], Urine Random Microalbumin [Pending], Urine Random Total Protein 9, Urine Random Sodium 90, Urine Creatinine 80.7, Urine Microalbumin/Creatinine Ratio [Pending] 08/04/17 04:30: White Blood Count 4.2L, Red Blood Count 3.88L, Hemoglobin 12.9L, Hematocrit 36.1L, Mean Corpuscular Volume 93, Mean Corpuscular Hemoglobin 33.4H, Mean Corpuscular Hemoglobin Concent 35.8, Red Cell Distribution Width 11.9, Platelet Count 272, Mean Platelet Volume 6.0L, Neutrophils (%) (Auto) 48.9, Lymphocytes ( %) (Auto) 38.5, Monocytes (%) (Auto) 9.2, Eosinophils (%) (Auto) 2.1, Basophils (%) (Auto) 1.3, Sodium Level 142, Potassium Level 3.8, Chloride Level 105, Carbon Dioxide Level 26, Anion Gap 11, Blood Urea Nitrogen 11, Creatinine 0.6L, Estimat Glomerular Filtration Rate > 60, Glucose Level 128H, Calcium Level 8.7 Current Medications Medications (Trade) Dose Ordered Sig/Alfredo Route PRN Reason Start Time Stop Time Status Last Admin Dose Admin Acetaminophen (Tylenol) 650 mg Q4H PRN ORAL Fever 08/01/17 14:00 08/31/17 13:59 Albuterol/ Ipratropium (DuoNeb 0.5-3(2.5)mg/3ml) 3 ml Q4H PRN HHN Shortness of Breath 08/01/17 14:00 08/06/17 13:59 Cefepime HCl 1 gm/ Sodium Chloride 55 ml @ 110 mls/hr EVERY 12 HOURS IVPB 08/01/17 21:00 08/08/17 20:59 08/04/17 08:51 Dextrose (Dextrose 50%) STAT PRN IV Hypoglycemia 08/02/17 15:15 09/01/17 15:14 Heparin Sodium (Porcine) (Heparin 5000 units/ml) 5,000 units EVERY 12 HOURS SUBQ 08/01/17 21:00 08/31/17 20:59 08/04/17 08:56 Insulin Aspart (NovoLOG) BEFORE MEALS AND HS SUBQ 08/02/17 16:30 09/01/17 16:29 08/03/17 12:30 Insulin Aspart (NovoLOG) 12 units NOVOTIAC SUBQ 08/03/17 11:50 09/02/17 11:49 08/04/17 07:03 Insulin Detemir (Levemir) 15 units Q12HR SUBQ 08/03/17 09:00 09/02/17 08:59 08/04/17 08:57 Lorazepam (Ativan 2mg/ml 1ml) 2 mg Q2H PRN IV agitation 08/01/17 14:00 08/08/17 13:59 08/03/17 21:00 Morphine Sulfate (Morphine Sulfate) 4 mg Q4H PRN IVP Severe Pain (Pain Scale 7-10) 08/01/17 14:00 08/08/17 13:59 08/04/17 08:28 Nitroglycerin (Ntg) 0.4 mg Q5M PRN SL Prn Chest Pain 08/01/17 14:00 08/31/17 13:59 Ondansetron HCl (Zofran) 4 mg Q6H PRN IVP Nausea & Vomiting 08/01/17 14:00 08/31/17 13:59 Polyethylene Glycol (Miralax) 17 gm DAILYPRN PRN ORAL Constipation 08/01/17 14:00 08/31/17 13:59 Vancomycin HCl (Vanco rx to dose) 1 ea DAILY PRN MISC Per rx protocol 08/01/17 18:15 08/31/17 18:14 Vancomycin HCl 1 gm/Sodium Chloride 275 ml @ 183.708 mls/hr Q8HR@0000,0800,1600 IVPB 08/03/17 16:00 08/08/17 15:59 08/04/17 08:51 VALERY OG Aug 04, 2017 10:48
[2017-08-04] MEDS ORDERED: Nitroglycerin Subl 0.4mg tab (Bottle Of 25) SL PRN (13:00)
--- NOTE | 2017-08-04 13:52 | General Progress Note ---
Assessment/Plan Problem List: (1) Dehydration ICD Codes: E86.0 - Dehydration SNOMED: 32780555 (2) Hyperkalemia ICD Codes: E87.5 - Hyperkalemia SNOMED: 11828557 (3) Sepsis ICD Codes: A41.9 - Sepsis, unspecified organism SNOMED: 60148569 (4) DKA, type 1 ICD Codes: E10.10 - Type 1 diabetes mellitus with ketoacidosis without coma SNOMED: 48029742, 808615645 Status: stable, progressing, tolerating diet Assessment/Plan abx bs control detox cbc bmp am Subjective Allergies: Coded Allergies: No Known Allergies (Unverified , 08/01/17) All Systems: reviewed and negative except above Subjective calm in bed Objective Last 24 Hour Vital Signs Date Time Temp Pulse Resp B/P (MAP) Pulse Ox O2 Delivery O2 Flow Rate FiO2 08/04/17 13:00 82 17 122/59 100 Room Air 08/04/17 12:00 98.4 80 17 126/74 98 Room Air 08/04/17 12:00 59 08/04/17 11:00 60 17 123/77 100 Room Air 08/04/17 10:00 72 18 115/68 100 Room Air 08/04/17 09:00 98.2 68 18 125/80 100 Room Air 08/04/17 08:20 68 18 Room Air 21 08/04/17 08:00 68 18 131/82 100 Room Air 08/04/17 08:00 66 08/04/17 07:00 78 18 109/60 100 Room Air 08/04/17 06:00 59 18 112/62 100 Room Air 08/04/17 05:00 56 18 112/74 100 Room Air 08/04/17 04:00 82 08/04/17 04:00 97.7 59 20 115/74 100 Room Air 08/04/17 03:00 59 18 111/63 100 Room Air 08/04/17 02:00 56 18 114/56 100 Room Air 08/04/17 01:00 56 18 113/63 100 Room Air 08/04/17 00:00 73 08/04/17 00:00 98.0 56 18 112/58 100 Room Air 08/03/17 23:00 83 18 113/56 100 Room Air 08/03/17 22:21 97.7 08/03/17 22:00 77 18 144/93 100 Room Air 08/03/17 21:00 72 18 124/72 100 Room Air 08/03/17 20:00 63 08/03/17 20:00 97.7 74 20 113/67 100 Room Air 08/03/17 19:30 64 16 Room Air 21 08/03/17 19:00 64 18 104/50 100 Room Air 08/03/17 18:00 67 21 110/53 100 Room Air 08/03/17 17:00 60 18 118/69 100 Room Air 08/03/17 16:00 58 08/03/17 16:00 98.0 58 18 125/65 100 Room Air 08/03/17 15:00 61 19 127/51 100 Room Air 08/03/17 14:00 60 18 132/53 99 Room Air Intake and Output 08/04/17 08/05/17 19:00 07:00 Intake Total 688.7 ml Output Total 1450 ml Balance -761.3 ml Intake Oral 320 ml IV Total 368.7 ml Output Urine Total 1450 ml # Voids 2 # Bowel Movements 2 Laboratory Tests 08/03/17 14:15: Vancomycin Level Trough 6.1 08/03/17 14:30: Urine Eosinophils None seen, Urine Random Creatinine [Pending], Urine Random Microalbumin [Pending], Urine Random Total Protein 9, Urine Random Sodium 90, Urine Creatinine 80.7, Urine Microalbumin/Creatinine Ratio [Pending] 08/04/17 04:30: White Blood Count 4.2L, Red Blood Count 3.88L, Hemoglobin 12.9L, Hematocrit 36.1L, Mean Corpuscular Volume 93, Mean Corpuscular Hemoglobin 33.4H, Mean Corpuscular Hemoglobin Concent 35.8, Red Cell Distribution Width 11.9, Platelet Count 272, Mean Platelet Volume 6.0L, Neutrophils (%) (Auto) 48.9, Lymphocytes ( %) (Auto) 38.5, Monocytes (%) (Auto) 9.2, Eosinophils (%) (Auto) 2.1, Basophils (%) (Auto) 1.3, Sodium Level 142, Potassium Level 3.8, Chloride Level 105, Carbon Dioxide Level 26, Anion Gap 11, Blood Urea Nitrogen 11, Creatinine 0.6L, Estimat Glomerular Filtration Rate > 60, Glucose Level 128H, Calcium Level 8.7 Height (Feet): 5 Height (Inches): 10.00 Weight (Pounds): 150 General Appearance: alert EENT: normal ENT inspection Neck: normal alignment Cardiovascular: normal peripheral pulses, normal rate, regular rhythm Respiratory/Chest: chest wall non-tender, lungs clear, normal breath sounds Abdomen: normal bowel sounds, non tender, soft Extremities: normal inspection Edema: no edema noted Arm (L), no edema noted Arm (R), no edema noted Leg (L), no edema noted Leg (R), no edema noted Pedal (L), no edema noted Pedal (R), no edema noted Generalized Neurologic: responsive, motor weakness Skin: normal pigmentation, warm/dry SIGIFREDO ABREU Aug 04, 2017 13:52
[2017-08-04] MEDS ORDERED: LORazepam Inj 2mg/ml 1ml IV PRN (14:00)
[2017-08-04] MEDS ORDERED: Miralax 17gm pkt ORAL PRN (14:00)
[2017-08-04] MEDS ORDERED: DuoNeb 0.5-3(2.5)mg/3ml neb HHN PRN (14:00)
--- NOTE | 2017-08-04 17:34 | Infectious Diseases Prog Note ---
Assessment/Plan Problems: (1) DKA, type 1 Assessment & Plan: improved, on insulin drip, now on long acting insuline and sliding scale , monitor glucose level closely (2) Dehydration Assessment & Plan: continue IVF, for hydration monitor electrolytes (3) Hyperkalemia Assessment & Plan: due to DKA, monitor potassium level closely , may need replacement if drops with insulin treatment (4) Drug abuse Assessment & Plan: used needle in the past , screening for HIV and hepatitis is negative , needs counseling Subjective Constitutional: Reports: no symptoms HEENT: Reports: no symptoms Cardiovascular: Reports: no symptoms Gastrointestinal/Abdominal: Reports: no symptoms Genitourinary: Reports: no symptoms Allergies: Coded Allergies: No Known Allergies (Unverified , 08/01/17) Objective Vital Signs Last 24 Hour Vital Signs Date Time Temp Pulse Resp B/P (MAP) Pulse Ox O2 Delivery O2 Flow Rate FiO2 08/04/17 14:00 97.8 66 18 127/83 99 Room Air 08/04/17 13:00 82 17 122/59 100 Room Air 08/04/17 12:00 98.4 80 17 126/74 98 Room Air 08/04/17 12:00 59 08/04/17 11:00 60 17 123/77 100 Room Air 08/04/17 10:00 72 18 115/68 100 Room Air 08/04/17 09:00 98.2 68 18 125/80 100 Room Air 08/04/17 08:20 68 18 Room Air 21 08/04/17 08:00 68 18 131/82 100 Room Air 08/04/17 08:00 66 08/04/17 07:00 78 18 109/60 100 Room Air 08/04/17 06:00 59 18 112/62 100 Room Air 08/04/17 05:00 56 18 112/74 100 Room Air 08/04/17 04:00 82 08/04/17 04:00 97.7 59 20 115/74 100 Room Air 08/04/17 03:00 59 18 111/63 100 Room Air 08/04/17 02:00 56 18 114/56 100 Room Air 08/04/17 01:00 56 18 113/63 100 Room Air 08/04/17 00:00 73 08/04/17 00:00 98.0 56 18 112/58 100 Room Air 08/03/17 23:00 83 18 113/56 100 Room Air 08/03/17 22:21 97.7 08/03/17 22:00 77 18 144/93 100 Room Air 08/03/17 21:00 72 18 124/72 100 Room Air 08/03/17 20:00 63 08/03/17 20:00 97.7 74 20 113/67 100 Room Air 08/03/17 19:30 64 16 Room Air 21 08/03/17 19:00 64 18 104/50 100 Room Air 08/03/17 18:00 67 21 110/53 100 Room Air Height (Feet): 5 Height (Inches): 10.00 Weight (Pounds): 150 General Appearance: WD/WN, no acute distress HEENT: normocephalic, atraumatic, anicteric Respiratory/Chest: chest wall non-tender, lungs clear, normal breath sounds, no respiratory distress Cardiovascular: normal peripheral pulses, normal rate, regular rhythm, no gallop/murmur Abdomen: normal bowel sounds, soft, non tender, no organomegaly, non distended , no mass Extremities: no cyanosis, no clubbing Skin: no rash, no lesions Laboratory Tests Test 08/04/17 04:30 White Blood Count 4.2 K/UL (4.8-10.8) L Red Blood Count 3.88 M/UL (4.70-6.10) L Hemoglobin 12.9 G/DL (14.2-18.0) L Hematocrit 36.1 % (42.0-52.0) L Mean Corpuscular Volume 93 FL (80-99) Mean Corpuscular Hemoglobin 33.4 PG (27.0-31.0) H Mean Corpuscular Hemoglobin Concent 35.8 G/DL (32.0-36.0) Red Cell Distribution Width 11.9 % (11.6-14.8) Platelet Count 272 K/UL (150-450) Mean Platelet Volume 6.0 FL (6.5-10.1) L Neutrophils (%) (Auto) 48.9 % (45.0-75.0) Lymphocytes (%) (Auto) 38.5 % (20.0-45.0) Monocytes (%) (Auto) 9.2 % (1.0-10.0) Eosinophils (%) (Auto) 2.1 % (0.0-3.0) Basophils (%) (Auto) 1.3 % (0.0-2.0) Sodium Level 142 mEQ/L (135-145) Potassium Level 3.8 mEQ/L (3.4-4.9) Chloride Level 105 mEQ/L (98-107) Carbon Dioxide Level 26 mEQ/L (20-30) Anion Gap 11 (5-15) Blood Urea Nitrogen 11 mg/dL (7-23) Creatinine 0.6 mg/dL (0.7-1.2) L Estimat Glomerular Filtration Rate > 60 mL/min (>60) Glucose Level 128 mg/dL (74-106) H Calcium Level 8.7 mg/dL (8.6-10.2) Current Medications Medications (Trade) Dose Ordered Sig/Alfredo Route PRN Reason Start Time Stop Time Status Last Admin Dose Admin Acetaminophen (Tylenol) 650 mg Q4H PRN ORAL T>100.5 08/04/17 14:00 08/31/17 13:59 Albuterol/ Ipratropium (DuoNeb 0.5-3(2.5)mg/3ml) 3 ml Q4H PRN HHN Shortness of Breath 08/04/17 14:00 08/06/17 13:59 Dextrose (Dextrose 50%) STAT PRN IV Hypoglycemia 08/04/17 13:30 09/01/17 13:29 Heparin Sodium (Porcine) (Heparin 5000 units/ml) 5,000 units EVERY 12 HOURS SUBQ 08/04/17 21:00 08/31/17 20:59 Insulin Aspart (NovoLOG) BEFORE MEALS AND HS SUBQ 08/04/17 16:30 09/01/17 16:29 08/04/17 17:13 Insulin Aspart (NovoLOG) 12 units NOVOTIAC SUBQ 08/04/17 16:50 09/02/17 11:49 Insulin Detemir (Levemir) 15 units Q12HR SUBQ 08/04/17 21:00 09/02/17 08:59 Lorazepam (Ativan 2mg/ml 1ml) 2 mg Q2H PRN IV agitation 08/04/17 14:00 08/08/17 13:59 Morphine Sulfate (Morphine Sulfate) 4 mg Q4H PRN IVP Severe Pain (Pain Scale 7-10) 08/04/17 14:00 08/08/17 13:59 08/04/17 14:01 Nitroglycerin (Ntg) 0.4 mg Q5M PRN SL Prn Chest Pain 08/04/17 13:00 08/31/17 13:59 Ondansetron HCl (Zofran) 4 mg Q6H PRN IVP Nausea & Vomiting 08/04/17 14:00 08/31/17 13:59 Polyethylene Glycol (Miralax) 17 gm DAILYPRN PRN ORAL Constipation 08/04/17 14:00 08/31/17 13:59 Jan Webber M.D. Aug 04, 2017 17:33
--- NOTE | 2017-08-04 18:46 | Cardiology Report ---
APPROVED REPORT EKG Measurement Heart [id number] Sinus tachycardia Otherwise normal ECG
--- NOTE | 2017-08-04 19:04 | Cardiology Progress Note ---
Assessment/Plan Assessment/Plan 1. Sinus tachycardia, resolved with hydration and BS control, no need for AV mila agents. 2. Dyspnea resolved likely due to metabolic acidosis due to DKA. Subjective Subjective Transferred to the med-surg unit. No cardiac events noticed. Objective Last 24 Hour Vital Signs Date Time Temp Pulse Resp B/P (MAP) Pulse Ox O2 Delivery O2 Flow Rate FiO2 08/04/17 14:00 97.8 66 18 127/83 99 Room Air 08/04/17 13:00 82 17 122/59 100 Room Air 08/04/17 12:00 98.4 80 17 126/74 98 Room Air 08/04/17 12:00 59 08/04/17 11:00 60 17 123/77 100 Room Air 08/04/17 10:00 72 18 115/68 100 Room Air 08/04/17 09:00 98.2 68 18 125/80 100 Room Air 08/04/17 08:20 68 18 Room Air 21 08/04/17 08:00 68 18 131/82 100 Room Air 08/04/17 08:00 66 08/04/17 07:00 78 18 109/60 100 Room Air 08/04/17 06:00 59 18 112/62 100 Room Air 08/04/17 05:00 56 18 112/74 100 Room Air 08/04/17 04:00 82 08/04/17 04:00 97.7 59 20 115/74 100 Room Air 08/04/17 03:00 59 18 111/63 100 Room Air 08/04/17 02:00 56 18 114/56 100 Room Air 08/04/17 01:00 56 18 113/63 100 Room Air 08/04/17 00:00 73 08/04/17 00:00 98.0 56 18 112/58 100 Room Air 08/03/17 23:00 83 18 113/56 100 Room Air 08/03/17 22:21 97.7 08/03/17 22:00 77 18 144/93 100 Room Air 08/03/17 21:00 72 18 124/72 100 Room Air 08/03/17 20:00 63 08/03/17 20:00 97.7 74 20 113/67 100 Room Air 08/03/17 19:30 64 16 Room Air 21 08/03/17 19:00 64 18 104/50 100 Room Air Intake and Output 08/04/17 08/05/17 19:00 07:00 Intake Total 928.7 ml Output Total 1450 ml Balance -521.3 ml Intake Oral 560 ml IV Total 368.7 ml Output Urine Total 1450 ml # Voids 3 # Bowel Movements 2 Laboratory Tests Test 08/04/17 04:30 White Blood Count 4.2 K/UL (4.8-10.8) L Red Blood Count 3.88 M/UL (4.70-6.10) L Hemoglobin 12.9 G/DL (14.2-18.0) L Hematocrit 36.1 % (42.0-52.0) L Mean Corpuscular Volume 93 FL (80-99) Mean Corpuscular Hemoglobin 33.4 PG (27.0-31.0) H Mean Corpuscular Hemoglobin Concent 35.8 G/DL (32.0-36.0) Red Cell Distribution Width 11.9 % (11.6-14.8) Platelet Count 272 K/UL (150-450) Mean Platelet Volume 6.0 FL (6.5-10.1) L Neutrophils (%) (Auto) 48.9 % (45.0-75.0) Lymphocytes (%) (Auto) 38.5 % (20.0-45.0) Monocytes (%) (Auto) 9.2 % (1.0-10.0) Eosinophils (%) (Auto) 2.1 % (0.0-3.0) Basophils (%) (Auto) 1.3 % (0.0-2.0) Sodium Level 142 mEQ/L (135-145) Potassium Level 3.8 mEQ/L (3.4-4.9) Chloride Level 105 mEQ/L (98-107) Carbon Dioxide Level 26 mEQ/L (20-30) Anion Gap 11 (5-15) Blood Urea Nitrogen 11 mg/dL (7-23) Creatinine 0.6 mg/dL (0.7-1.2) L Estimat Glomerular Filtration Rate > 60 mL/min (>60) Glucose Level 128 mg/dL (74-106) H Calcium Level 8.7 mg/dL (8.6-10.2) Objective HEENT: Normocephalic and atraumatic. Pupils reactive to light equally. Moist oral mucosa. NECK: No JVD, no carotid bruit. CARDIOVASCULAR: Regular rate and rhythm with normal S1 and S2, No murmurs, gallops or rubs. LUNGS: Clear bilaterally. No wheezing or rhonchi. ABDOMEN: Soft, nontender, and nondistended. Positive bowel sounds. No hepatosplenomegaly or ascites. EXTREMITY: No edema, clubbing or cyanosis. [place] Aug 04, 2017 19:04
[2017-08-04] MEDS ORDERED: Levemir Flexpen SUBQ ONE (21:00)
[2017-08-05] VITALS: BP 133/68
--- NOTE | 2017-08-05 04:00 | Consultation ---
DATE OF CONSULTATION: 08/03/2017 CARDIOLOGY CONSULTATION REFERRING PHYSICIAN: Clyde Correa D.O. REASON FOR CONSULTATION: Management of tachycardia. HISTORY OF PRESENT ILLNESS: This patient is seen in intensive care unit of [facility] in Cardiology consultation for tachycardia. The patient is a very unfortunate 21-year-old gentleman who presents to the hospital with complaints of shortness of breath, generalized weakness, and numbness of all four extremities. He has been also complaining of nausea and vomiting, nonbilious and nonbloody material that happened twice prior to arrival to this hospital. The patient's initial blood pressure was 138/60 mmHg and heart rate was 104. Apparently, the patient has had substance abuse, using methamphetamines. Initial evaluation in the emergency department confirmed that he had diabetic ketoacidosis type 1 as the patient had also been noncompliant with his blood sugar regimen. He was started on insulin drip, IV fluid given in the emergency department and he was transferred to intensive care unit. Cardiology consultation was made at the request of Dr. Correa for evaluation of tachycardia and to observe for possible other tachyarrhythmias. PAST MEDICAL HISTORY: Diabetes mellitus type 1 and amphetamine use. PAST SURGICAL HISTORY: None. MEDICATIONS: List of medications, the patient does not take any medication. In this admission, he was started on Zosyn and vancomycin in the emergency department as well as IV fluids. ALLERGIES: No known drug allergies. SOCIAL HISTORY: Currently unemployed. He uses drugs on a regular basis. He was recently at rehabilitation, however, he had another relapse. FAMILY HISTORY: No premature coronary artery disease in first-degree relative. REVIEW OF SYSTEMS: HEENT: Denies any headache, diplopia, or blurred vision. Constitutional: Denies any fever, chills, night sweats, however, had generalized weakness. Cardiovascular: Denies any chest pain. He had shortness of breath, but no PND, orthopnea, leg swelling, or palpitation. Pulmonary: Denies any cough, hemoptysis, or wheezing. Gastrointestinal: Denies any nausea, vomiting, diarrhea, constipation, abdominal pain, or GI bleed. Genitourinary: Denies any hematuria, dysuria, or incontinence. Neurologic: Denies any motor dysfunction, sensory deficit, or altered speech. PHYSICAL EXAMINATION: GENERAL: The patient is a very unfortunate 21-year-old gentleman, in no apparent respiratory distress. Alert and oriented x4. VITAL SIGNS: At the time of arrival to the emergency department, blood pressure was 138/60 mmHg, heart rate of 104, respirations of 16, temperature 97.9 degrees Fahrenheit, and O2 saturation 98% on room air. HEENT: Atraumatic and normocephalic. Anicteric. Pupils are equal, round, and reactive to light and accommodation. Extraocular muscles intact. NECK: JVP less than 5 cm. No carotid bruit. Carotid upstrokes 2+ bilaterally. CVS: Normal S1 and S2. Regular rate and rhythm. Tachycardic. No murmurs, gallops, or rubs. PMI is at fourth intercostal space in the midclavicular line. LUNGS: Clear to auscultation bilaterally. ABDOMEN: Soft, nontender, and nondistended. No hepatosplenomegaly. Positive bowel sounds. EXTREMITIES: No evidence of edema, clubbing, or cyanosis. LABORATORY AND DIAGNOSTIC DATA: Chest x-ray showed no acute cardiopulmonary disease. Laboratory findings showed WBC of 18.5, hemoglobin of 14.5, hematocrit of 47.8, and platelet count was 447,000. Chemistry showed sodium of 126, potassium 6.6, chloride 83, bicarbonate was 4, BUN of 35, creatinine 1.9, glucose was 758, and calcium was 8.9. INR was 1.0. Toxicology showed positive barbiturates and cocaine moderate, positive moderate acetones, less than 10 alcohol, less than 10 acetaminophen, and less than 1 salicylates. A 12-lead electrocardiogram shows sinus rhythm at a rate of [address] and T wave abnormalities. ASSESSMENT AND PLAN: The patient is a very unfortunate 21-year-old gentleman, who was seen in Cardiology consultation at the request of Dr. Correa. 1. Sinus tachycardia, most likely due to amphetamine/cocaine use. This patient may benefit from combination of calcium-channel kenia and nitrate should the heart rate be persistent above 90. At this time with the hydration and management of diabetic ketoacidosis, heart rate is much more stable without the above . We will continue to monitor the patient in the intensive care unit. We will ensure adequate supplementation of magnesium and potassium as well. 2. Diabetic ketoacidosis, diabetes, type 1. 3. Hyperkalemia with no deleterious ECG effects. 4. Severe hypovolemia due to diabetic ketoacidosis. Aggressive hydration was initiated in the emergency department. The patient will be continued on hydration. At this time, we will continue our hemodynamic management. He does not require any further cardiac testing. The total amount of time spent in evaluation of this patient in intensive care unit, discussing the plan of care with the ancillary service and the primary care physician was 45 minutes. I would like to thank Dr. Correa for allowing me to participate in the care of this patient. Tj Lee M.D. DR: Delisa JOB#: [id number] CC:
[2017-08-05] MEDS: Morphine Sulfate 4mg/ml Inj IVP PRN ×3 (06:01→16:21)
[2017-08-05] MEDS: NovoLOG Insulin Flexpen SUBQ SCH ×7 (06:15→20:28)
[2017-08-05 06:24] LABS: BASOPHILS % (AUTO) 1.3 % (0.0-2.0); EOSINOPHILS % (AUTO) 2.4 % (0.0-3.0); LYMPHOCYTES % (AUTO) 41.8 % (20.0-45.0); MEAN CORPUSCULAR HGB CONC 35.3 G/DL (32.0-36.0); MEAN CORPUSCULAR VOLUME 93 FL (80-99); MEAN PLATELET VOLUME 5.9 FL (6.5-10.1); MONOCYTES % (AUTO) 8.5 % (1.0-10.0); NEUTROPHILS % (AUTO) 46.1 % (45.0-75.0); PLATELET COUNT 285 K/UL (150-450); RED BLOOD COUNT 3.98 M/UL (4.70-6.10); RED CELL DISTRIBUTION WIDTH 11.5 % (11.6-14.8); WHITE BLOOD COUNT 3.8 K/UL (4.8-10.8)
[2017-08-05 06:44] LABS: ALANINE AMINOTRANSFERASE 11 U/L (3-41); ALBUMIN/GLOBULIN RATIO 1.3 (1.0-2.7); ANION GAP 9 (5-15); ASPARTATE AMINO TRANSFERASE 12 U/L (5-40); CALCIUM 9.2 mg/dL (8.6-10.2); CARBON DIOXIDE 30 mEQ/L (20-30); CHLORIDE 103 mEQ/L (98-107); CREATININE 0.6 mg/dL (0.7-1.2); GLOMERULAR FILTRATION RATE > 60 mL/min (>60); HEMOLYSIS 3; MAGNESIUM 1.7 mg/dL (1.7-2.5); PHOSPHORUS 3.1 mg/dL (2.5-4.8); POTASSIUM 4.1 mEQ/L (3.4-4.9); SODIUM 142 mEQ/L (135-145); TOTAL PROTEIN 6.2 g/dL (6.6-8.7)
--- NOTE | 2017-08-05 06:50 | General Progress Note ---
Assessment/Plan Problem List: (1) Type 1 diabetes mellitus ICD Codes: E10.9 - Type 1 diabetes mellitus without complications SNOMED: 04024098 (2) DKA, type 1 ICD Codes: E10.10 - Type 1 diabetes mellitus with ketoacidosis without coma SNOMED: 86498746, 113832395 (3) Drug abuse ICD Codes: F19.10 - Other psychoactive substance abuse, uncomplicated SNOMED: 87143748 Assessment/Plan DKA resolved glucose values are fairly well controlled tight control will increase risk of hypoglycemia continue Levemir 15 units bid + Novolog 12 units ac tid + SSI Rx left in chart for patient's outpatient insulin regimen (Lantus Solostar + Humalog Kwik pen) stable for DC home from diabetes stand point Subjective Allergies: Coded Allergies: No Known Allergies (Unverified , 08/01/17) All Systems: reviewed and negative except above Subjective events noted - interval notes reviewed Objective Last 24 Hour Vital Signs Date Time Temp Pulse Resp B/P (MAP) Pulse Ox O2 Delivery O2 Flow Rate FiO2 08/05/17 00:00 98.2 66 22 133/68 99 Room Air 08/04/17 20:32 66 18 Room Air 21 08/04/17 20:00 98.5 81 22 138/87 98 Room Air 08/04/17 14:00 97.8 66 18 127/83 99 Room Air 08/04/17 13:00 82 17 122/59 100 Room Air 08/04/17 12:00 98.4 80 17 126/74 98 Room Air 08/04/17 12:00 59 08/04/17 11:00 60 17 123/77 100 Room Air 08/04/17 10:00 72 18 115/68 100 Room Air 08/04/17 09:00 98.2 68 18 125/80 100 Room Air 08/04/17 08:20 68 18 Room Air 21 08/04/17 08:00 68 18 131/82 100 Room Air 08/04/17 08:00 66 08/04/17 07:00 78 18 109/60 100 Room Air Laboratory Tests 08/05/17 05:40: White Blood Count [Pending], Red Blood Count [Pending], Hemoglobin [Pending], Hematocrit [Pending], Mean Corpuscular Volume [Pending], Mean Corpuscular Hemoglobin [Pending], Mean Corpuscular Hemoglobin Concent [Pending], Red Cell Distribution Width [Pending], Platelet Count [Pending], Mean Platelet Volume [ Pending], Neutrophils (%) (Auto) [Pending], Lymphocytes (%) (Auto) [Pending], Monocytes (%) (Auto) [Pending], Eosinophils (%) (Auto) [Pending], Basophils (%) (Auto) [Pending], Sodium Level 142, Potassium Level 4.1, Chloride Level 103, Carbon Dioxide Level 30, Anion Gap 9, Blood Urea Nitrogen 11, Creatinine 0.6L, Estimat Glomerular Filtration Rate > 60, Glucose Level 207H, Calcium Level 9.2, Phosphorus Level 3.1, Magnesium Level 1.7, Total Bilirubin 0.2, Aspartate Amino Transf (AST/SGOT) 12, Alanine Aminotransferase (ALT/SGPT) 11, Alkaline Phosphatase 116, Total Protein 6.2L, Albumin 3.6, Globulin 2.6, Albumin/ Globulin Ratio 1.3 Height (Feet): 5 Height (Inches): 10.00 Weight (Pounds): 150 General Appearance: no apparent distress EENT: PERRL/EOMI Neck: normal alignment Cardiovascular: normal rate Respiratory/Chest: lungs clear Abdomen: normal bowel sounds Pelvis: normal external exam Edema: no edema noted Arm (L), no edema noted Arm (R), no edema noted Leg (L), no edema noted Leg (R), no edema noted Pedal (L), no edema noted Pedal (R), no edema noted Generalized Objective Current Medications Medications (Trade) Dose Ordered Sig/Alfredo Route PRN Reason Start Time Stop Time Status Last Admin Dose Admin Acetaminophen (Tylenol) 650 mg Q4H PRN ORAL T>100.5 08/04/17 14:00 08/31/17 13:59 Albuterol/ Ipratropium (DuoNeb 0.5-3(2.5)mg/3ml) 3 ml Q4H PRN HHN Shortness of Breath 08/04/17 14:00 08/06/17 13:59 Dextrose (Dextrose 50%) STAT PRN IV Hypoglycemia 08/04/17 13:30 09/01/17 13:29 Heparin Sodium (Porcine) (Heparin 5000 units/ml) 5,000 units EVERY 12 HOURS SUBQ 08/04/17 21:00 08/31/17 20:59 08/04/17 21:11 Insulin Aspart (NovoLOG) BEFORE MEALS AND HS SUBQ 08/04/17 16:30 09/01/17 16:29 08/05/17 06:15 Insulin Aspart (NovoLOG) 12 units NOVOTIAC SUBQ 08/04/17 16:50 09/02/17 11:49 08/05/17 06:16 Insulin Detemir (Levemir) 15 units Q12HR SUBQ 08/04/17 21:00 09/02/17 08:59 Lorazepam (Ativan 2mg/ml 1ml) 2 mg Q2H PRN IV agitation 08/04/17 14:00 08/08/17 13:59 08/04/17 21:14 Morphine Sulfate (Morphine Sulfate) 4 mg Q4H PRN IVP Severe Pain (Pain Scale 7-10) 08/04/17 14:00 08/08/17 13:59 08/05/17 06:01 Nitroglycerin (Ntg) 0.4 mg Q5M PRN SL Prn Chest Pain 08/04/17 13:00 08/31/17 13:59 Ondansetron HCl (Zofran) 4 mg Q6H PRN IVP Nausea & Vomiting 08/04/17 14:00 08/31/17 13:59 Polyethylene Glycol (Miralax) 17 gm DAILYPRN PRN ORAL Constipation 08/04/17 14:00 08/31/17 13:59 Item Value Date Time Bedside Blood Glucose 202 mg/dl H 08/05/17 0616 Bedside Blood Glucose 73 mg/dl 08/04/17 2109 Bedside Blood Glucose 161 mg/dl H 08/04/17 1812 Bedside Blood Glucose 161 mg/dl H 08/04/17 1209 Bedside Blood Glucose 100 mg/dl 08/04/17 0857 Bedside Blood Glucose 100 mg/dl 08/04/17 0609 SERGIO LE Aug 05, 2017 06:50
[2017-08-05 08:30] VITALS: BP 139/69
[2017-08-05] MEDS: Levemir Flexpen SUBQ SCH ×3 (09:00→20:27)
[2017-08-05] MEDS: Heparin 5000 units/ml inj SUBQ SCH ×2 (09:41→20:26)
[2017-08-05 11:35] VITALS: BP 122/70
--- NOTE | 2017-08-05 14:19 | General Progress Note ---
Assessment/Plan Problem List: (1) Dehydration ICD Codes: E86.0 - Dehydration SNOMED: 99571646 (2) Hyperkalemia ICD Codes: E87.5 - Hyperkalemia SNOMED: 59696061 (3) Sepsis ICD Codes: A41.9 - Sepsis, unspecified organism SNOMED: 27201948 (4) DKA, type 1 ICD Codes: E10.10 - Type 1 diabetes mellitus with ketoacidosis without coma SNOMED: 02049221, 363806015 Status: stable, progressing, tolerating diet Assessment/Plan abx bs control detox cbc bmp am dc plan Subjective Constitutional: Reports: weakness Allergies: Coded Allergies: No Known Allergies (Unverified , 08/01/17) All Systems: reviewed and negative except above Subjective calm in bed Objective Last 24 Hour Vital Signs Date Time Temp Pulse Resp B/P (MAP) Pulse Ox O2 Delivery O2 Flow Rate FiO2 08/05/17 11:35 97.8 56 19 122/70 99 Room Air 08/05/17 08:30 97.5 78 18 139/69 100 Room Air 08/05/17 07:12 75 18 Room Air 21 08/05/17 00:00 98.2 66 22 133/68 99 Room Air 08/04/17 20:32 66 18 Room Air 21 08/04/17 20:00 98.5 81 22 138/87 98 Room Air Intake and Output 08/05/17 08/06/17 19:00 07:00 Intake Total 560 ml Output Total 500 ml Balance 60 ml Intake Oral 560 ml Output Urine Total 500 ml Laboratory Tests 08/05/17 05:40: White Blood Count 3.8L, Red Blood Count 3.98L, Hemoglobin 13.1L, Hematocrit 37.1L, Mean Corpuscular Volume 93, Mean Corpuscular Hemoglobin 33.0H, Mean Corpuscular Hemoglobin Concent 35.3, Red Cell Distribution Width 11.5L, Platelet Count 285, Mean Platelet Volume 5.9L, Neutrophils (%) (Auto) 46.1, Lymphocytes (%) (Auto) 41.8, Monocytes (%) (Auto) 8.5, Eosinophils (%) (Auto) 2.4, Basophils (%) (Auto) 1.3, Sodium Level 142, Potassium Level 4.1, Chloride Level 103, Carbon Dioxide Level 30, Anion Gap 9, Blood Urea Nitrogen 11, Creatinine 0.6L, Estimat Glomerular Filtration Rate > 60, Glucose Level 207H, Calcium Level 9.2, Phosphorus Level 3.1, Magnesium Level 1.7, Total Bilirubin 0.2, Aspartate Amino Transf (AST/SGOT) 12, Alanine Aminotransferase (ALT/SGPT) 11, Alkaline Phosphatase 116, Total Protein 6.2L, Albumin 3.6, Globulin 2.6, Albumin/Globulin Ratio 1.3 Height (Feet): 5 Height (Inches): 10.00 Weight (Pounds): 150 General Appearance: alert EENT: normal ENT inspection Neck: normal alignment Cardiovascular: normal peripheral pulses, normal rate, regular rhythm Respiratory/Chest: chest wall non-tender, lungs clear, normal breath sounds Abdomen: normal bowel sounds, non tender, soft Extremities: normal inspection Edema: no edema noted Arm (L), no edema noted Arm (R), no edema noted Leg (L), no edema noted Leg (R), no edema noted Pedal (L), no edema noted Pedal (R), no edema noted Generalized Neurologic: responsive, motor weakness Skin: normal pigmentation, warm/dry SIGIFREDO ABREU Aug 05, 2017 14:19
[2017-08-05 16:06] VITALS: BP 129/69
--- NOTE | 2017-08-05 16:30 | Nephrology Progress Note ---
Assessment/Plan Assessment 1. Acute renal failure, which resolved at this time. 2. Hypokalemia. 3. Hyponatremia. 4. History of multiple drug abuse. Plan plan based on urine study no evidence of proteinuria at this time continue current meds monitoring renal function avoid NSAID diabetic control Subjective Constitutional: Reports: no symptoms HEENT: Reports: no symptoms Genitourinary: Reports: no symptoms Neurologic/Psychiatric: Reports: no symptoms Objective Objective Last 24 Hour Vital Signs Date Time Temp Pulse Resp B/P (MAP) Pulse Ox O2 Delivery O2 Flow Rate FiO2 08/05/17 16:06 97.6 64 21 129/69 95 Room Air 08/05/17 11:35 97.8 56 19 122/70 99 Room Air 08/05/17 08:30 97.5 78 18 139/69 100 Room Air 08/05/17 07:12 75 18 Room Air 21 08/05/17 00:00 98.2 66 22 133/68 99 Room Air 08/04/17 20:32 66 18 Room Air 21 08/04/17 20:00 98.5 81 22 138/87 98 Room Air Intake and Output 08/05/17 08/06/17 19:00 07:00 Intake Total 560 ml Output Total 500 ml Balance 60 ml Intake Oral 560 ml Output Urine Total 500 ml Laboratory Tests 08/05/17 05:40: White Blood Count 3.8L, Red Blood Count 3.98L, Hemoglobin 13.1L, Hematocrit 37.1L, Mean Corpuscular Volume 93, Mean Corpuscular Hemoglobin 33.0H, Mean Corpuscular Hemoglobin Concent 35.3, Red Cell Distribution Width 11.5L, Platelet Count 285, Mean Platelet Volume 5.9L, Neutrophils (%) (Auto) 46.1, Lymphocytes (%) (Auto) 41.8, Monocytes (%) (Auto) 8.5, Eosinophils (%) (Auto) 2.4, Basophils (%) (Auto) 1.3, Sodium Level 142, Potassium Level 4.1, Chloride Level 103, Carbon Dioxide Level 30, Anion Gap 9, Blood Urea Nitrogen 11, Creatinine 0.6L, Estimat Glomerular Filtration Rate > 60, Glucose Level 207H, Calcium Level 9.2, Phosphorus Level 3.1, Magnesium Level 1.7, Total Bilirubin 0.2, Aspartate Amino Transf (AST/SGOT) 12, Alanine Aminotransferase (ALT/SGPT) 11, Alkaline Phosphatase 116, Total Protein 6.2L, Albumin 3.6, Globulin 2.6, Albumin/Globulin Ratio 1.3 Height (Feet): 5 Height (Inches): 10.00 Weight (Pounds): 150 Objective HEAD AND NECK: No JVP. No LAD. No thyromegaly. Extraocular movement intact. Pupils are reactive to light and accommodation. LUNGS: Clear to auscultation. CARDIAC: Regular rate and rhythm. S1 and S2. No murmur. No rub. ABDOMEN: Soft, nontender, and nondistended. EXTREMITIES: No edema. No clubbing. No cyanosis. MELANIE MAYS Aug 05, 2017 16:30
--- NOTE | 2017-08-05 17:07 | Infectious Diseases Prog Note ---
Assessment/Plan Problems: (1) DKA, type 1 Assessment & Plan: improved, on insulin drip, now on long acting insuline and sliding scale , monitor glucose level closely (2) Dehydration Assessment & Plan: continue IVF, for hydration monitor electrolytes (3) Hyperkalemia Assessment & Plan: due to DKA, monitor potassium level closely , may need replacement if drops with insulin treatment (4) Drug abuse Assessment & Plan: used needle in the past , screening for HIV and hepatitis is negative , needs counseling Subjective Constitutional: Reports: no symptoms HEENT: Reports: no symptoms Breasts: Reports: no symptoms Cardiovascular: Reports: no symptoms Gastrointestinal/Abdominal: Reports: no symptoms Genitourinary: Reports: no symptoms Allergies: Coded Allergies: No Known Allergies (Unverified , 08/01/17) Objective Vital Signs Last 24 Hour Vital Signs Date Time Temp Pulse Resp B/P (MAP) Pulse Ox O2 Delivery O2 Flow Rate FiO2 08/05/17 16:06 97.6 64 21 129/69 95 Room Air 08/05/17 11:35 97.8 56 19 122/70 99 Room Air 08/05/17 08:30 97.5 78 18 139/69 100 Room Air 08/05/17 07:12 75 18 Room Air 21 08/05/17 00:00 98.2 66 22 133/68 99 Room Air 08/04/17 20:32 66 18 Room Air 21 08/04/17 20:00 98.5 81 22 138/87 98 Room Air Height (Feet): 5 Height (Inches): 10.00 Weight (Pounds): 150 General Appearance: WD/WN, no acute distress HEENT: normocephalic, atraumatic, anicteric Respiratory/Chest: chest wall non-tender, lungs clear, normal breath sounds Cardiovascular: normal peripheral pulses, normal rate, regular rhythm Abdomen: normal bowel sounds, soft, non tender, no organomegaly Extremities: no cyanosis, no clubbing Skin: no rash, no lesions Laboratory Tests Test 08/05/17 05:40 White Blood Count 3.8 K/UL (4.8-10.8) L Red Blood Count 3.98 M/UL (4.70-6.10) L Hemoglobin 13.1 G/DL (14.2-18.0) L Hematocrit 37.1 % (42.0-52.0) L Mean Corpuscular Volume 93 FL (80-99) Mean Corpuscular Hemoglobin 33.0 PG (27.0-31.0) H Mean Corpuscular Hemoglobin Concent 35.3 G/DL (32.0-36.0) Red Cell Distribution Width 11.5 % (11.6-14.8) L Platelet Count 285 K/UL (150-450) Mean Platelet Volume 5.9 FL (6.5-10.1) L Neutrophils (%) (Auto) 46.1 % (45.0-75.0) Lymphocytes (%) (Auto) 41.8 % (20.0-45.0) Monocytes (%) (Auto) 8.5 % (1.0-10.0) Eosinophils (%) (Auto) 2.4 % (0.0-3.0) Basophils (%) (Auto) 1.3 % (0.0-2.0) Sodium Level 142 mEQ/L (135-145) Potassium Level 4.1 mEQ/L (3.4-4.9) Chloride Level 103 mEQ/L (98-107) Carbon Dioxide Level 30 mEQ/L (20-30) Anion Gap 9 (5-15) Blood Urea Nitrogen 11 mg/dL (7-23) Creatinine 0.6 mg/dL (0.7-1.2) L Estimat Glomerular Filtration Rate > 60 mL/min (>60) Glucose Level 207 mg/dL (74-106) H Calcium Level 9.2 mg/dL (8.6-10.2) Phosphorus Level 3.1 mg/dL (2.5-4.8) Magnesium Level 1.7 mg/dL (1.7-2.5) Total Bilirubin 0.2 mg/dL (0.0-1.2) Aspartate Amino Transf (AST/SGOT) 12 U/L (5-40) Alanine Aminotransferase (ALT/SGPT) 11 U/L (3-41) Alkaline Phosphatase 116 U/L (40-129) Total Protein 6.2 g/dL (6.6-8.7) L Albumin 3.6 g/dL (3.5-5.2) Globulin 2.6 g/dL Albumin/Globulin Ratio 1.3 (1.0-2.7) Current Medications Medications (Trade) Dose Ordered Sig/Alfredo Route PRN Reason Start Time Stop Time Status Last Admin Dose Admin Acetaminophen (Tylenol) 650 mg Q4H PRN ORAL T>100.5 08/04/17 14:00 08/31/17 13:59 Albuterol/ Ipratropium (DuoNeb 0.5-3(2.5)mg/3ml) 3 ml Q4H PRN HHN Shortness of Breath 08/04/17 14:00 08/06/17 13:59 Dextrose (Dextrose 50%) STAT PRN IV Hypoglycemia 08/04/17 13:30 09/01/17 13:29 Heparin Sodium (Porcine) (Heparin 5000 units/ml) 5,000 units EVERY 12 HOURS SUBQ 08/04/17 21:00 08/31/17 20:59 08/05/17 09:41 Insulin Aspart (NovoLOG) BEFORE MEALS AND HS SUBQ 08/04/17 16:30 09/01/17 16:29 08/05/17 12:21 Insulin Aspart (NovoLOG) 12 units NOVOTIAC SUBQ 08/04/17 16:50 09/02/17 11:49 08/05/17 12:21 Insulin Detemir (Levemir) 10 units Q12HR SUBQ 08/05/17 10:00 09/04/17 09:59 08/05/17 10:40 Nicotine (Nicoderm) 1 patch Q24H TDERMAL 08/05/17 13:45 09/04/17 13:44 08/05/17 13:45 Nitroglycerin (Ntg) 0.4 mg Q5M PRN SL Prn Chest Pain 08/04/17 13:00 08/31/17 13:59 Ondansetron HCl (Zofran) 4 mg Q6H PRN IVP Nausea & Vomiting 08/04/17 14:00 08/31/17 13:59 Polyethylene Glycol (Miralax) 17 gm DAILYPRN PRN ORAL Constipation 08/04/17 14:00 08/31/17 13:59 Jan Webber M.D. Aug 05, 2017 17:07
[2017-08-05 20:00] VITALS: BP 129/79
[2017-08-06] VITALS: BP 124/60
[2017-08-06 04:00] VITALS: BP 119/55
[2017-08-06 06:28] LABS: BASOPHILS % (AUTO) 1.7 % (0.0-2.0); EOSINOPHILS % (AUTO) 3.8 % (0.0-3.0); LYMPHOCYTES % (AUTO) 37.9 % (20.0-45.0); MEAN CORPUSCULAR HEMOGLOBIN 32.6 PG (27.0-31.0); MEAN CORPUSCULAR HGB CONC 34.8 G/DL (32.0-36.0); MEAN CORPUSCULAR VOLUME 94 FL (80-99); MEAN PLATELET VOLUME 6.3 FL (6.5-10.1); MONOCYTES % (AUTO) 7.6 % (1.0-10.0); NEUTROPHILS % (AUTO) 49.1 % (45.0-75.0); PLATELET COUNT 330 K/UL (150-450); RED BLOOD COUNT 4.28 M/UL (4.70-6.10); RED CELL DISTRIBUTION WIDTH 11.8 % (11.6-14.8); WHITE BLOOD COUNT 4.6 K/UL (4.8-10.8)
[2017-08-06] MEDS: NovoLOG Insulin Flexpen SUBQ SCH ×4 (06:30→11:42)
[2017-08-06 07:13] LABS: ANION GAP 12 (5-15); CALCIUM 9.2 mg/dL (8.6-10.2); CARBON DIOXIDE 28 mEQ/L (20-30); CHLORIDE 97 mEQ/L (98-107); CREATININE 0.7 mg/dL (0.7-1.2); GLOMERULAR FILTRATION RATE > 60 mL/min (>60); HEMOLYSIS 2; POTASSIUM 4.8 mEQ/L (3.4-4.9); SODIUM 137 mEQ/L (135-145)
[2017-08-06] MEDS ORDERED: LANTUS SOL100 UNIT/1 SUBQ (07:23)
[2017-08-06] MEDS ORDERED: HUMALOG100 UNIT/3 SUBQ (07:25)
[2017-08-06 08:15] VITALS: BP 110/63
--- NOTE | 2017-08-06 08:18 | Nephrology Progress Note ---
Assessment/Plan Assessment 1. Acute renal failure, which resolved at this time. 2. Hypokalemia. 3. Hyponatremia. 4. History of multiple drug abuse. Plan plan based on urine study no evidence of proteinuria at this time continue current meds monitoring renal function avoid NSAID diabetic control Subjective Constitutional: Reports: no symptoms HEENT: Reports: no symptoms Genitourinary: Reports: no symptoms Neurologic/Psychiatric: Reports: no symptoms Subjective alert and wake no complaints Objective Objective Last 24 Hour Vital Signs Date Time Temp Pulse Resp B/P (MAP) Pulse Ox O2 Delivery O2 Flow Rate FiO2 08/06/17 07:50 71 16 Room Air 08/06/17 04:00 97.9 59 20 119/55 97 Room Air 08/06/17 00:00 97.9 57 20 124/60 97 Room Air 08/05/17 20:00 98.1 60 20 129/79 97 Room Air 08/05/17 19:00 65 18 Room Air 21 08/05/17 16:06 97.6 64 21 129/69 95 Room Air 08/05/17 11:35 97.8 56 19 122/70 99 Room Air 08/05/17 08:30 97.5 78 18 139/69 100 Room Air Laboratory Tests 08/06/17 04:40: White Blood Count 4.6L, Red Blood Count 4.28L, Hemoglobin 14.0L, Hematocrit 40.2L, Mean Corpuscular Volume 94, Mean Corpuscular Hemoglobin 32.6H, Mean Corpuscular Hemoglobin Concent 34.8, Red Cell Distribution Width 11.8, Platelet Count 330, Mean Platelet Volume 6.3L, Neutrophils (%) (Auto) 49.1, Lymphocytes ( %) (Auto) 37.9, Monocytes (%) (Auto) 7.6, Eosinophils (%) (Auto) 3.8H, Basophils (%) (Auto) 1.7, Sodium Level 137, Potassium Level 4.8, Chloride Level 97L, Carbon Dioxide Level 28, Anion Gap 12, Blood Urea Nitrogen 16, Creatinine 0.7, Estimat Glomerular Filtration Rate > 60, Glucose Level 354#H, Calcium Level 9.2 Height (Feet): 5 Height (Inches): 10.00 Weight (Pounds): 150 Objective HEAD AND NECK: No JVP. No LAD. No thyromegaly. Extraocular movement intact. Pupils are reactive to light and accommodation. LUNGS: Clear to auscultation. CARDIAC: Regular rate and rhythm. S1 and S2. No murmur. No rub. ABDOMEN: Soft, nontender, and nondistended. EXTREMITIES: No edema. No clubbing. No cyanosis. MELANIE MAYS Aug 06, 2017 08:18
[2017-08-06] MEDS ORDERED: NovoLOG Insulin Flexpen SUBQ ONE (08:40)
[2017-08-06] MEDS ORDERED: Levemir Flexpen SUBQ ONE (08:45)
[2017-08-06] MEDS: Heparin 5000 units/ml inj SUBQ SCH (09:00)
[2017-08-06] MEDS: Levemir Flexpen SUBQ SCH (09:00)
[2017-08-06] MEDS ORDERED: 1/2 NS 1000ml IV ONE (09:20)
[2017-08-06 12:03] VITALS: BP 119/66
--- NOTE | 2017-08-06 13:13 | General Progress Note ---
Assessment/Plan Problem List: (1) Type 1 diabetes mellitus ICD Codes: E10.9 - Type 1 diabetes mellitus without complications SNOMED: 69757899 (2) DKA, type 1 ICD Codes: E10.10 - Type 1 diabetes mellitus with ketoacidosis without coma SNOMED: 92771467, 699822439 (3) Drug abuse ICD Codes: F19.10 - Other psychoactive substance abuse, uncomplicated SNOMED: 85237573 Assessment/Plan DKA resolved tight control will increase risk of hypoglycemia continue Levemir 10 units bid + Novolog 12 units ac tid + SSI Rx left in chart for patient's outpatient insulin regimen (Lantus Solostar + Humalog Kwik pen) stable for DC home from diabetes stand point Subjective Allergies: Coded Allergies: No Known Allergies (Unverified , 08/01/17) All Systems: reviewed and negative except above Subjective glucose high this morning it was checked after breakfast and he did not receive his scheduled insulin since he refused BG check Objective Last 24 Hour Vital Signs Date Time Temp Pulse Resp B/P (MAP) Pulse Ox O2 Delivery O2 Flow Rate FiO2 08/06/17 12:03 97.7 72 23 119/66 97 Room Air 08/06/17 08:15 97.6 67 21 110/63 99 Room Air 08/06/17 07:50 71 16 Room Air 08/06/17 04:00 97.9 59 20 119/55 97 Room Air 08/06/17 00:00 97.9 57 20 124/60 97 Room Air 08/05/17 20:00 98.1 60 20 129/79 97 Room Air 08/05/17 19:00 65 18 Room Air 21 08/05/17 16:06 97.6 64 21 129/69 95 Room Air Intake and Output 08/06/17 08/07/17 19:00 07:00 Intake Total 420 ml Balance 420 ml Intake Oral 420 ml Laboratory Tests 08/06/17 04:40: White Blood Count 4.6L, Red Blood Count 4.28L, Hemoglobin 14.0L, Hematocrit 40.2L, Mean Corpuscular Volume 94, Mean Corpuscular Hemoglobin 32.6H, Mean Corpuscular Hemoglobin Concent 34.8, Red Cell Distribution Width 11.8, Platelet Count 330, Mean Platelet Volume 6.3L, Neutrophils (%) (Auto) 49.1, Lymphocytes ( %) (Auto) 37.9, Monocytes (%) (Auto) 7.6, Eosinophils (%) (Auto) 3.8H, Basophils (%) (Auto) 1.7, Sodium Level 137, Potassium Level 4.8, Chloride Level 97L, Carbon Dioxide Level 28, Anion Gap 12, Blood Urea Nitrogen 16, Creatinine 0.7, Estimat Glomerular Filtration Rate > 60, Glucose Level 354#H, Calcium Level 9.2 Height (Feet): 5 Height (Inches): 10.00 Weight (Pounds): 150 General Appearance: no apparent distress EENT: PERRL/EOMI Neck: normal alignment Cardiovascular: normal peripheral pulses Respiratory/Chest: chest wall non-tender Abdomen: normal bowel sounds Pelvis: normal external exam Edema: no edema noted Arm (L), no edema noted Arm (R), no edema noted Leg (L), no edema noted Leg (R), no edema noted Pedal (L), no edema noted Pedal (R), no edema noted Generalized Objective Current Medications Medications (Trade) Dose Ordered Sig/Alfredo Route PRN Reason Start Time Stop Time Status Last Admin Dose Admin Acetaminophen (Tylenol) 650 mg Q4H PRN ORAL T>100.5 08/04/17 14:00 08/31/17 13:59 Albuterol/ Ipratropium (DuoNeb 0.5-3(2.5)mg/3ml) 3 ml Q4H PRN HHN Shortness of Breath 08/04/17 14:00 08/06/17 13:59 Dextrose (Dextrose 50%) STAT PRN IV Hypoglycemia 08/04/17 13:30 09/01/17 13:29 Heparin Sodium (Porcine) (Heparin 5000 units/ml) 5,000 units EVERY 12 HOURS SUBQ 08/04/17 21:00 08/31/17 20:59 08/05/17 20:26 Insulin Aspart (NovoLOG) BEFORE MEALS AND HS SUBQ 08/04/17 16:30 09/01/17 16:29 08/06/17 11:42 Insulin Aspart (NovoLOG) 12 units NOVOTIAC SUBQ 08/04/17 16:50 09/02/17 11:49 08/06/17 08:50 Insulin Detemir (Levemir) 10 units Q12HR SUBQ 08/05/17 10:00 09/04/17 09:59 08/05/17 20:27 Nicotine (Nicoderm) 1 patch Q24H TDERMAL 08/05/17 13:45 09/04/17 13:44 08/05/17 13:45 Nitroglycerin (Ntg) 0.4 mg Q5M PRN SL Prn Chest Pain 08/04/17 13:00 08/31/17 13:59 Ondansetron HCl (Zofran) 4 mg Q6H PRN IVP Nausea & Vomiting 08/04/17 14:00 08/31/17 13:59 Polyethylene Glycol (Miralax) 17 gm DAILYPRN PRN ORAL Constipation 08/04/17 14:00 08/31/17 13:59 Item Value Date Time Bedside Blood Glucose 281 mg/dl H 08/06/17 1142 Bedside Blood Glucose 450 mg/dl H 08/06/17 0855 Bedside Blood Glucose 166 mg/dl H 08/05/17 2100 Bedside Blood Glucose 142 mg/dl H 08/05/17 1714 Bedside Blood Glucose 200 mg/dl H 08/05/17 1221 SERGIO LE Aug 06, 2017 13:12
[2017-08-06 14:30] LABS: MICROALBUMIN/CREATININE RATIO <4.3 mg/g creat (0.0-30.0)
--- NOTE | 2017-08-06 17:32 | Infectious Diseases Prog Note ---
Assessment/Plan Problems: (1) DKA, type 1 Assessment & Plan: improved, on insulin drip, now on long acting insuline and sliding scale , monitor glucose level closely (2) Dehydration Assessment & Plan: continue IVF, for hydration monitor electrolytes (3) Hyperkalemia Assessment & Plan: due to DKA, monitor potassium level closely , may need replacement if drops with insulin treatment (4) Drug abuse Assessment & Plan: used needle in the past , screening for HIV and hepatitis is negative , needs counseling Subjective Constitutional: Reports: no symptoms HEENT: Reports: no symptoms Respiratory: Reports: no symptoms Breasts: Reports: no symptoms Cardiovascular: Reports: no symptoms Gastrointestinal/Abdominal: Reports: no symptoms Genitourinary: Reports: no symptoms Neurologic: Reports: no symptoms Psychiatric: Reports: no symptoms Skin: Reports: no symptoms Endocrine: Reports: no symptoms Allergies: Coded Allergies: No Known Allergies (Unverified , 08/01/17) Objective Vital Signs Last 24 Hour Vital Signs Date Time Temp Pulse Resp B/P (MAP) Pulse Ox O2 Delivery O2 Flow Rate FiO2 08/06/17 12:03 97.7 72 23 119/66 97 Room Air 08/06/17 08:15 97.6 67 21 110/63 99 Room Air 08/06/17 07:50 71 16 Room Air 08/06/17 04:00 97.9 59 20 119/55 97 Room Air 08/06/17 00:00 97.9 57 20 124/60 97 Room Air 08/05/17 20:00 98.1 60 20 129/79 97 Room Air 08/05/17 19:00 65 18 Room Air 21 Height (Feet): 5 Height (Inches): 10.00 Weight (Pounds): 150 General Appearance: WD/WN, no acute distress HEENT: normocephalic, atraumatic, anicteric, mucous membranes moist Respiratory/Chest: chest wall non-tender, lungs clear, normal breath sounds, no respiratory distress, no accessory muscle use Cardiovascular: normal peripheral pulses, normal rate, regular rhythm, no gallop/murmur Abdomen: normal bowel sounds, soft, non tender, no organomegaly, non distended , no mass Extremities: no cyanosis, no clubbing Skin: no rash, no lesions, no ulcers Laboratory Tests Test 08/06/17 04:40 White Blood Count 4.6 K/UL (4.8-10.8) L Red Blood Count 4.28 M/UL (4.70-6.10) L Hemoglobin 14.0 G/DL (14.2-18.0) L Hematocrit 40.2 % (42.0-52.0) L Mean Corpuscular Volume 94 FL (80-99) Mean Corpuscular Hemoglobin 32.6 PG (27.0-31.0) H Mean Corpuscular Hemoglobin Concent 34.8 G/DL (32.0-36.0) Red Cell Distribution Width 11.8 % (11.6-14.8) Platelet Count 330 K/UL (150-450) Mean Platelet Volume 6.3 FL (6.5-10.1) L Neutrophils (%) (Auto) 49.1 % (45.0-75.0) Lymphocytes (%) (Auto) 37.9 % (20.0-45.0) Monocytes (%) (Auto) 7.6 % (1.0-10.0) Eosinophils (%) (Auto) 3.8 % (0.0-3.0) H Basophils (%) (Auto) 1.7 % (0.0-2.0) Sodium Level 137 mEQ/L (135-145) Potassium Level 4.8 mEQ/L (3.4-4.9) Chloride Level 97 mEQ/L (98-107) L Carbon Dioxide Level 28 mEQ/L (20-30) Anion Gap 12 (5-15) Blood Urea Nitrogen 16 mg/dL (7-23) Creatinine 0.7 mg/dL (0.7-1.2) Estimat Glomerular Filtration Rate > 60 mL/min (>60) Glucose Level 354 mg/dL (74-106) #H Calcium Level 9.2 mg/dL (8.6-10.2) Jan Webber M.D. Aug 06, 2017 17:32
--- NOTE | 2017-08-06 23:56 | Cardiology Progress Note ---
Assessment/Plan Assessment/Plan 1. Sinus tachycardia, resolved with hydration and BS control, no need for AV mila agents. 2. Dyspnea resolved likely due to metabolic acidosis due to DKA. 3. DC planning today. Subjective Subjective Denies chest pain or SOB. No cardiac events noticed. Objective Last 24 Hour Vital Signs Date Time Temp Pulse Resp B/P (MAP) Pulse Ox O2 Delivery O2 Flow Rate FiO2 08/06/17 12:03 97.7 72 23 119/66 97 Room Air 08/06/17 08:15 97.6 67 21 110/63 99 Room Air 08/06/17 07:50 71 16 Room Air 08/06/17 04:00 97.9 59 20 119/55 97 Room Air 08/06/17 00:00 97.9 57 20 124/60 97 Room Air Intake and Output 08/06/17 08/07/17 19:00 07:00 Intake Total 420 ml Balance 420 ml Intake Oral 420 ml Laboratory Tests Test 08/06/17 04:40 White Blood Count 4.6 K/UL (4.8-10.8) L Red Blood Count 4.28 M/UL (4.70-6.10) L Hemoglobin 14.0 G/DL (14.2-18.0) L Hematocrit 40.2 % (42.0-52.0) L Mean Corpuscular Volume 94 FL (80-99) Mean Corpuscular Hemoglobin 32.6 PG (27.0-31.0) H Mean Corpuscular Hemoglobin Concent 34.8 G/DL (32.0-36.0) Red Cell Distribution Width 11.8 % (11.6-14.8) Platelet Count 330 K/UL (150-450) Mean Platelet Volume 6.3 FL (6.5-10.1) L Neutrophils (%) (Auto) 49.1 % (45.0-75.0) Lymphocytes (%) (Auto) 37.9 % (20.0-45.0) Monocytes (%) (Auto) 7.6 % (1.0-10.0) Eosinophils (%) (Auto) 3.8 % (0.0-3.0) H Basophils (%) (Auto) 1.7 % (0.0-2.0) Sodium Level 137 mEQ/L (135-145) Potassium Level 4.8 mEQ/L (3.4-4.9) Chloride Level 97 mEQ/L (98-107) L Carbon Dioxide Level 28 mEQ/L (20-30) Anion Gap 12 (5-15) Blood Urea Nitrogen 16 mg/dL (7-23) Creatinine 0.7 mg/dL (0.7-1.2) Estimat Glomerular Filtration Rate > 60 mL/min (>60) Glucose Level 354 mg/dL (74-106) #H Calcium Level 9.2 mg/dL (8.6-10.2) Objective HEENT: Atraumatic and normocephalic. Anicteric. Pupils are equal, round, and reactive to light and accommodation. Extraocular muscles intact. NECK: JVP less than 5 cm. No carotid bruit. Carotid upstrokes 2+ bilaterally. CVS: Normal S1 and S2. Regular rate and rhythm. Tachycardic. No murmurs, gallops, or rubs. PMI is at fourth intercostal space in the midclavicular line. LUNGS: Clear to auscultation bilaterally. ABDOMEN: Soft, nontender, and nondistended. No hepatosplenomegaly. Positive bowel sounds. EXTREMITIES: No evidence of edema, clubbing, or cyanosis. [place] FALL Aug 06, 2017 23:56
--- NOTE | 2017-08-07 15:31 | Discharge Summary ---
Discharge Summary Hospital Course Date of Admission Aug 01, 2017 at 13:27 Date of Discharge Aug 06, 2017 at 14:05 Admitting Diagnosis diabetic ketoacodosis HPI Sylvester Lal is a 21 year old male who was admitted on Aug 01, 2017 at 13: 27 for Diabetic Ketoacidosis Hospital Course [id number] Discharge Discharge Disposition Patient was discharged to [facility] rehab Discharge Diagnoses: Kay Nelson NP Aug 07, 2017 15:31
--- NOTE | 2017-08-08 20:45 | Discharge Summary 2 SIG ---
DATE OF ADMISSION: 08/01/2017 DATE OF DISCHARGE: 08/06/2017 CONSULTANTS: 1. Tj Lee M.D. 2. Rachid Ahmadi M.D. 3. Jan Webber M.D. 4. Debra Naranjo M.D. 5. Angie Dunn M.D. Brief Hospital Course: The patient is a 21-year-old male, who has history of type 1 diabetes and presented to ED complaining of nausea, vomiting, and weight loss. On evaluation at ED, workup showed elevated glucose at 1073. He admits he was in a rehabilitation center/detox center. He left and has been doing drugs. He has not taken his insulin. At ED, he was tachycardic and potassium was elevated to 7.2. He was given aggressive IV hydration and was started on insulin drip. He had leukocytosis. WBC was 18. Creatinine was also elevated to 2.0, BUN of 35, and anion gap was 40. Urine was positive for ketones and toxicology screen was positive for cocaine and barbiturates. He was admitted to ICU for diabetic ketoacidosis and was continued on insulin drip and aggressive IV hydration. He was given vancomycin and cefepime. Blood cultures did not isolate any growth. VRE and MRSA screens were negative. He was taken off antibiotic. Renal functions improved with hydration. Hyperkalemia was secondary to DKA. There was no evidence of proteinuria in urine. His anion gap closed. IV insulin was discontinued and was given Levemir and NovoLog SQ. He was educated on the need for compliance with medications and close followup with PCP. He was likewise counseled against use of street drugs. He was eventually transferred out of ICU and was transferred to medical floor. Tachycardia resolved with IV hydration. Hyperkalemia did not show any deleterious EKG effects. DKA resolved and prescriptions for Lantus and Humalog were given. He was eventually discharged to [facility]. FINAL DIAGNOSES: 1. Diabetic ketoacidosis. 2. Hyperkalemia. 3. Sinus tachycardia secondary to dehydration. 4. Drug abuse. 5. Type 1 diabetes mellitus. 6. Hyponatremia. 7. Acute renal failure, resolved. Disposition: The patient was transferred to [facility]. DISCHARGE MEDICATIONS: Refer to medication list. Clyde Correa D.O. I have been assigned to dictate discharge summary on this account and I was not involved in the patient's management. Kay Nelson N.P. DR: MARGO JOB#: [id number] CC: [email or web address]
== END 2017-08-06 14:05 | DRG 638 ==
LOC: EDBD 11:40 → EMR 12:19 → ICU 13:27 → EDBEDREQ 15:05 → 4E 08-04 13:30
DX: E10.10 Type 1 diabetes mellitus with ketoacidosis without coma (principal); N17.9 Acute kidney failure, unspecified; I95.9 Hypotension, unspecified; E87.5 Hyperkalemia; E87.1 Hypo-osmolality and hyponatremia; R00.1 Bradycardia, unspecified; E86.0 Dehydration; B19.20 Unspecified viral hepatitis C without hepatic coma; F14.10 Cocaine abuse, uncomplicated; F15.10 Other stimulant abuse, uncomplicated; D72.829 Elevated white blood cell count, unspecified; Z91.14 Patient's other noncompliance with medication regimen; Z79.4 Long term (current) use of insulin
CPT/HCPCS: 36415; 71010; 80048; 80053; 80076; 80202; 80300; 80329; 81003; 82009; 82043; 82044; 82570; 82962; 83036; 83605; 83735; 84100; 84300; 85007; 85025; 85610; 85651; 85730; 86140; 86703; 86705; 86709; 86803; 87040; 87081; 87340; 89050; 93005; 94664; 99291; C9399; J1815; J2405; J7620; J8499; S5561

== ENCOUNTER 2017-10-12 00:41 | Inpatient (IN) | payer OTHER, MEDICAID ==
[2017-10-12] VITALS (23 sets, daily range): BP systolic 89–140; BP diastolic 43–79
[~2017-10-12] VITALS: Ht 177.8 cm; Wt 68.0 kg
[~2017-10-12 00:41] MED LIST: HUMALOG100 UNIT/3 SUBQ; LANTUS SOL100 UNIT/1 SUBQ
--- NOTE | 2017-10-12 01:02 | Emergency Room Report ---
History of Present Illness General Chief Complaint: Vomiting Source: Patient Present Illness HPI Is a 22-year-old male with a history insulin-dependent diabetes. 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 His been there for couple months now. He presents with chief complaint of weakness and body pain and vomiting. Onset today. Unable to keep anything down. No diarrhea. No fever or chills. Pain is 10 out of 10. EMS gave him 4 mg of Zofran without much relief. Denies any fever chills denies any recent drug use. Allergies: Coded Allergies: No Known Allergies (Unverified , 08/01/17) Patient History Past Medical History: see triage record, old chart reviewed, DM Past Surgical History: other Pertinent Family History: none Social History: Reports: drug use - History of methamphetamin Immunizations: other Reviewed Nursing Documentation: PMH: Agreed, PSxH: Agreed Nursing Documentation-PMH Hx Cardiac Problems: No Hx Diabetes: Yes - dm1 Hx Cancer: No Hx Gastrointestinal Problems: No Hx Neurological Problems: Yes - Neuropathy pain Hx Peripheral Neuropathy: Yes Review of Systems Constitutional: Reports: weakness Eye: Denies: eye pain, blurred vision ENT: Denies: ear pain, nose congestion, throat swelling Respiratory: Denies: cough, shortness of breath Cardiovascular: Denies: chest pain, palpitations Gastrointestinal: Reports: abdominal pain, nausea, vomiting, Denies: diarrhea Musculoskeletal: Denies: back pain, joint pain Skin: Denies: rash Neurological: Denies: headache, numbness Endocrine: Denies: increased thirst, increased urine Hematologic/Lymphatic: Denies: easy bruising All Other Systems: negative except mentioned in HPI Physical Exam Vital Signs Date Time Temp Pulse Resp B/P (MAP) Pulse Ox O2 Delivery O2 Flow Rate FiO2 10/12/17 00:13 98.1 136 18 89/48 100 Room Air vitals with tachycardia and hypotension Sp02 EP Interpretation: reviewed, normal General Appearance: alert, moderate distress, thin Head: normocephalic, atraumatic Eyes: bilateral eye PERRL, bilateral eye EOMI ENT: hearing grossly normal, dry mucus membranes Neck: full range of motion, supple, no meningismus Respiratory: chest non-tender, lungs clear, normal breath sounds Cardiovascular #1: regular rate, rhythm, no murmur Gastrointestinal: normal bowel sounds, non tender, no mass, no organomegaly, no bruit, non-distended Musculoskeletal: back normal, gait/station normal, normal range of motion Neurologic: alert, oriented x3 Psychiatric: mood/affect normal Skin: warm/dry Procedures Critical Care Time Critical Care Time Critical care is mandated in this patient who presented with severe dehydration secondary to DKA. Patient require my urgent intervention to attenuate the risks of metabolic collapse which may lead to cardiovascular collapse and . Critical care time is 45 minutes excluding any reportable procedure. Critical care time included evaluation, multiple reevaluation, looking at old charts, interpreting laboratory and diagnostic data, discussing case with patient and family and consultants, and charting. Medical Decision Making Diagnostic Impression: Primary Impression: DKA, type 1 Qualified Codes: E10.10 - Type 1 diabetes mellitus with ketoacidosis without coma Additional Impression: Dehydration, severe ER Course this patient presents with DKA and severe hyperglycemia. This is similar presentation 2 months ago. His glucose is coming down quickly. No evidence of infection. Leukocytosis probably secondary to stress response. Patient on insulin drip. Will admit to ICU. Laboratory Tests Test 10/12/17 00:55 10/12/17 01:02 10/12/17 03:30 White Blood Count 22.2 K/UL (4.8-10.8) *H Red Blood Count 4.76 M/UL (4.70-6.10) Hemoglobin 15.5 G/DL (14.2-18.0) Hematocrit 48.7 % (42.0-52.0) Mean Corpuscular Volume 102 FL (80-99) H Mean Corpuscular Hemoglobin 32.4 PG (27.0-31.0) H Mean Corpuscular Hemoglobin Concent 31.7 G/DL (32.0-36.0) L Red Cell Distribution Width 12.0 % (11.6-14.8) Platelet Count 427 K/UL (150-450) Mean Platelet Volume 6.3 FL (6.5-10.1) L Neutrophils (%) (Auto) % (45.0-75.0) Lymphocytes (%) (Auto) % (20.0-45.0) Monocytes (%) (Auto) % (1.0-10.0) Eosinophils (%) (Auto) % (0.0-3.0) Basophils (%) (Auto) % (0.0-2.0) Neutrophils % (Manual) Pending Lymphocytes % (Manual) Pending Platelet Estimate Pending Platelet Morphology Pending Urine Color Pale yellow Urine Appearance Clear Urine pH 5 (4.5-8.0) Urine Specific [place] 1.015 (1.005-1.035) Urine Protein 1+ (NEGATIVE) H Urine Glucose (UA) 4+ (NEGATIVE) H Urine Ketones 3+ (NEGATIVE) H Urine Occult Blood Negative (NEGATIVE) Urine Nitrite Negative (NEGATIVE) Urine Bilirubin Negative (NEGATIVE) Urine Urobilinogen Normal MG/DL (0.0-1.0) Urine Leukocyte Esterase Negative (NEGATIVE) Urine RBC 0-2 /HPF (0 - 0) H Urine WBC 0-2 /HPF (0 - 0) Urine Squamous Epithelial Cells Occasional /LPF Urine Bacteria Occasional /HPF (NONE) Urine Mucus Occasional /LPF Sodium Level 131 MMOL/L (136-145) L 136 MMOL/L (136-145) Potassium Level 5.9 MMOL/L (3.5-5.1) H 4.3 MMOL/L (3.5-5.1) Chloride Level 90 MMOL/L (98-107) L 98 MMOL/L (98-107) Carbon Dioxide Level 6 MMOL/L (21-32) *L 8 MMOL/L (21-32) *L Anion Gap 35 mmol/L (5-15) H 30 mmol/L (5-15) H Blood Urea Nitrogen 43 mg/dL (7-18) H 43 mg/dL (7-18) H Creatinine 2.7 MG/DL (0.55-1.30) H 2.5 MG/DL (0.55-1.30) H Estimat Glomerular Filtration Rate 29.7 mL/min (>60) 32.5 mL/min (>60) Glucose Level 1058 MG/DL (74-106) *H 686 MG/DL (74-106) #*H Calcium Level 7.3 MG/DL (8.5-10.1) L 7.7 MG/DL (8.5-10.1) L Total Bilirubin 0.4 MG/DL (0.2-1.0) Aspartate Amino Transf (AST/SGOT) 16 U/L (15-37) Alanine Aminotransferase (ALT/SGPT) 23 U/L (12-78) Alkaline Phosphatase 122 U/L (46-116) H Total Protein 6.7 G/DL (6.4-8.2) Albumin 3.7 G/DL (3.4-5.0) Globulin 3.0 g/dL Albumin/Globulin Ratio 1.2 (1.0-2.7) Lipase 63 U/L (73-393) L Urine Opiates Screen Negative (NEGATIVE) Urine Barbiturates Screen Negative (NEGATIVE) Phencyclidine (PCP) Screen Negative (NEGATIVE) Urine Amphetamines Screen Negative (NEGATIVE) Urine Benzodiazepines Screen Negative (NEGATIVE) Urine Cocaine Screen Negative (NEGATIVE) Urine Marijuana (THC) Screen Negative (NEGATIVE) Arterial Blood pH 7.096 (7.350-7.450) Arterial Blood Partial Pressure CO2 12.8 mmHg (35.0-45.0) *L Arterial Blood Partial Pressure O2 165.2 mmHg (75.0-100.0) H Arterial Blood HCO3 3.8 mmol/L (22.0-26.0) L Arterial Blood Oxygen Saturation 98.2 % (92.0-98.0) H Arterial Blood Base Excess -23.6 Juan Test Positive Lab Results Impression labs with DKA EKG Diagnostic Results Rate: tachycardiac Rhythm: NSR ST Segments: no acute changes Rhythm Strip Diag. Results Rhythm Strip Time: 03:48 EP Interpretation: yes Rate: 114 Rhythm: NSR, no PVC's, no ectopy Chest X-Ray Diagnostic Results Chest X-Ray Diagnostic Results : Chest X-Ray Ordered: Yes # of Views/Limited/Complete: 1 View Indication: Shortness of Breath EP Interpretation: Yes Interpretation: no consolidation, no effusion, no pneumothorax, no acute cardiopulmonary disease Impression: No acute disease Electronically Signed by: Stewart Martinez MD Last Vital Signs Date Time Temp Pulse Resp B/P (MAP) Pulse Ox O2 Delivery O2 Flow Rate FiO2 10/12/17 00:13 98.1 136 18 89/48 100 Room Air Status: improved Disposition: ADMITTED INPATIENT Condition: Critical Referrals: NOT CHOSEN REESE/,REFERRING (PCP) STEWART MARTINEZ M.D. Oct 12, 2017 01:02
[2017-10-12 01:15] LABS: MEAN CORPUSCULAR HEMOGLOBIN 32.4 PG (27.0-31.0); MEAN CORPUSCULAR HGB CONC 31.7 G/DL (32.0-36.0); MEAN CORPUSCULAR VOLUME 102 FL (80-99); MEAN PLATELET VOLUME 6.3 FL (6.5-10.1); PLATELET COUNT 427 K/UL (150-450); RED BLOOD COUNT 4.76 M/UL (4.70-6.10)
[2017-10-12 01:20] LABS: APPEARANCE,URINE CLEAR; KETONES,URINE 3+ (NEGATIVE); LEUKOCYTE ESTERASE ,URINE NEGATIVE (NEGATIVE); NITRITE,URINE NEGATIVE (NEGATIVE); PH,URINE 5 (4.5-8.0); PROTEIN,URINE 1+ (NEGATIVE); UROBILINOGEN,URINE NORMAL MG/DL (0.0-1.0)
[2017-10-12 01:25] LABS: WHITE BLOOD COUNT 22.2 K/UL (4.8-10.8)
[2017-10-12 01:26] LABS: ANION GAP 35 mmol/L (5-15); CALCIUM 7.3 MG/DL (8.5-10.1); CHLORIDE 90 MMOL/L (98-107); CREATININE 2.7 MG/DL (0.55-1.30); GLOMERULAR FILTRATION RATE 29.7 mL/min (>60); POTASSIUM 5.9 MMOL/L (3.5-5.1); SODIUM 131 MMOL/L (136-145)
[2017-10-12 01:28] LABS: ALANINE AMINOTRANSFERASE 23 U/L (12-78); ALBUMIN/GLOBULIN RATIO 1.2 (1.0-2.7); ASPARTATE AMINO TRANSFERASE 16 U/L (15-37); LIPASE 63 U/L (73-393); TOTAL PROTEIN 6.7 G/DL (6.4-8.2)
[2017-10-12 01:31] LABS: CARBON DIOXIDE 6 MMOL/L (21-32)
[2017-10-12 01:40] LABS: ABG PCO2 12.8 mmHg (35.0-45.0)
[2017-10-12 01:41] LABS: ABG ALLEN TEST POSITIVE; ABG BASE EXCESS -23.6
[2017-10-12 01:42] LABS: BACTERIA,URINE OCCASIONAL /HPF; MUCUS,URINE OCCASIONAL /LPF (NONE/OCC); RBC,URINE 0-2 /HPF (0 - 0); SQUAMOUS EPITHELIAL CELL,UR OCCASIONAL /LPF (NONE/OCC); WBC,URINE 0-2 /HPF (0 - 0)
[2017-10-12] MEDS ORDERED: QUETIAPINE FUM200 MG ORAL (03:21)
[2017-10-12 04:17] LABS: ANION GAP 30 mmol/L (5-15); CALCIUM 7.7 MG/DL (8.5-10.1); CHLORIDE 98 MMOL/L (98-107); CREATININE 2.5 MG/DL (0.55-1.30); GLOMERULAR FILTRATION RATE 32.5 mL/min (>60); POTASSIUM 4.3 MMOL/L (3.5-5.1); SODIUM 136 MMOL/L (136-145)
[2017-10-12 04:25] LABS: CARBON DIOXIDE 8 MMOL/L (21-32)
[2017-10-12] MEDS: D5 1/2NS 1,000 ML IV SCH ×2 (06:32→09:34)
[2017-10-12 06:34] LABS: MEAN CORPUSCULAR HEMOGLOBIN 31.6 PG (27.0-31.0); MEAN CORPUSCULAR HGB CONC 34.3 G/DL (32.0-36.0); MEAN CORPUSCULAR VOLUME 92 FL (80-99); MEAN PLATELET VOLUME 6.4 FL (6.5-10.1); PLATELET COUNT 410 K/UL (150-450); RED BLOOD COUNT 4.79 M/UL (4.70-6.10); RED CELL DISTRIBUTION WIDTH 11.1 % (11.6-14.8); WHITE BLOOD COUNT 19.6 K/UL (4.8-10.8)
[2017-10-12 06:46] LABS: ANION GAP 21 mmol/L (5-15); CARBON DIOXIDE 15 MMOL/L (21-32); CHLORIDE 104 MMOL/L (98-107); CREATININE 2.1 MG/DL (0.55-1.30); GLOMERULAR FILTRATION RATE 39.7 mL/min (>60); POTASSIUM 4.1 MMOL/L (3.5-5.1); SODIUM 140 MMOL/L (136-145)
[2017-10-12] MEDS ORDERED: Insulin Rate Change 1 Each MISC PRN (07:00)
[2017-10-12] MEDS ORDERED: Albuterol/Ipratropium 3ml neb HHN PRN (07:00)
[2017-10-12] MEDS ORDERED: Nitroglycerin Subl 0.4mg tab SL PRN (07:00)
[2017-10-12] MEDS ORDERED: Miralax 17gm pkt ORAL PRN (07:00)
--- NOTE | 2017-10-12 07:47 | Pulmonolgy Critical Care Note ---
Critical Care - Asmt/Plan Assessment/Plan: ASSESSMENT DKA severe dehydration ARF 2 to dehydration e/lite abnormalities 2 to ARF ( hyper K, hypo Na) - resolved DM type 1 Leukocytosis, likely reactive Hx of amphetamine abuse Noncompliance PLAN OF CARE ICU care Insulin gtt as per protocol, until anion gap closed then will change to long and short acting regimen endo eval- generous IVF hydration , monitor renal parameters lytes , correct as needed avoid nephrotoxic ARF likely due to severe dehydration UA negative CXR negative hold off abx leukocytosis likely reactive, urine tox screen negative aids counselor to continue abstinence from street drugs DVT prophayxlsi pain management bowel regimen reinforced compliance with insulin regimen when discharged case discussed and evaluated by supervising physician Critical Care - Objective Last 24 Hour Vital Signs Date Time Temp Pulse Resp B/P (MAP) Pulse Ox O2 Delivery O2 Flow Rate FiO2 10/12/17 07:30 98.9 98 12 104/52 100 Room Air 10/12/17 06:45 98.9 98 12 118/55 100 Room Air 10/12/17 05:45 98.4 98 19 104/52 99 10/12/17 04:45 98.7 109 20 118/66 99 Room Air 10/12/17 03:43 98.8 115 20 110/48 99 Room Air 10/12/17 02:45 98.4 128 18 124/79 99 Room Air 10/12/17 01:45 98.6 126 20 116/62 100 Room Air 10/12/17 00:42 98.1 132 18 89/48 100 Room Air 10/12/17 00:13 98.1 136 18 89/48 100 Room Air Status: awake Condition: critical HEENT: atraumatic Neck: full ROM Lungs: clear Heart: HR/BP stable Abdomen: soft, non-tender, active bowel sounds Extremities: no C/C/E Accucheck: 260 Critical Care - Subjective Interval Events: remains on insulin gtt BS better anion gap still elevated but trending down, CO2 better, lytes corrected endo eval pending leukocytosis trending down,afebrile creat trending slowly down with IV hydration Patient reported noncompliance with insulin regimen at home Condition: critical IV Access: peripheral EKG Rhythm: Sinus Rhythm Fluids: D51/2 NS at 200 Drips: Insulin gtt at 5 u/hr CXR: No evidence of acute disease in the chest. Adeel Gomezeast [facility])Jewell NP Oct 12, 2017 07:47
[2017-10-12 08:31] LABS: BAND NEUTROPHILS % (MANUAL) 3 % (0-8); LYMPHOCYTES % (MANUAL) 11 % (20-45); NEUTROPHILS % (MANUAL) 79 % (45-75); TOTAL CELLS COUNTED 100
[2017-10-12 08:32] LABS: BASOPHILS % (MANUAL) 0 % (0-2); EOSINOPHILS % (MANUAL) 0 % (0-3); MACROCYTES 1+; PLATELET ESTIMATE INCREASED; PLATELET MORPHOLOGY NORMAL
[2017-10-12 08:58] LABS: BAND NEUTROPHILS % (MANUAL) 8 % (0-8); BASOPHILS % (MANUAL) 0 % (0-2); EOSINOPHILS % (MANUAL) 0 % (0-3); LYMPHOCYTES % (MANUAL) 15 % (20-45); NEUTROPHILS % (MANUAL) 74 % (45-75); PLATELET ESTIMATE INCREASED; TOTAL CELLS COUNTED 100
[2017-10-12 08:59] LABS: MACROCYTES 1+; PLATELET MORPHOLOGY NORMAL
--- NOTE | 2017-10-12 09:22 | Diagnostic Imaging Report ---
Clinical history: Acute dyspnea, chest pain. Technique: Portable AP chest radiograph was obtained. Comparison: None Findings: Mild left apical pleural thickening is noted. The lungs are well inflated and clear. There is no pneumonia or pulmonary edema. There is no pleural effusion or pneumothorax. The cardiac and mediastinal silhouettes are normal in appearance. The bony thorax is unremarkable. Impression: No evidence of acute disease in the chest.
[2017-10-12] MEDS: Heparin 5000 units/ml inj SUBQ SCH ×2 (09:34→21:08)
--- NOTE | 2017-10-12 11:36 | Consultation ---
Consult Note Consult Note asked to eval for renal failure Is a 22-year-old male with a history insulin-dependent diabetes. 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 His been there for couple months now. He presents with chief complaint of weakness and body pain and vomiting. Onset today. Unable to keep anything down. No diarrhea. No fever or chills. Pain is 10 out of 10. EMS gave him 4 mg of Zofran without much relief. Denies any fever chills denies any recent drug use. Social History: Reports: drug use - History of methamphetamin Hx Diabetes: Yes - dm1 Hx Neurological Problems: Yes - Neuropathy pain Hx Peripheral Neuropathy: Yes Assessment/Plan DKA severe dehydration ARF 2 to dehydration DM type 1 Leukocytosis, likely reactive r/o infection Hx of amphetamine abuse Noncompliance ICU care Insulin gtt as per protocol, until anion gap closed then will change to long and short acting regimen endo eval- generous IVF hydration , monitor renal parameters lytes , correct as needed avoid nephrotoxic NAPOLEON KAUFMAN Oct 12, 2017 11:36
[2017-10-12 14:59] LABS: ALANINE AMINOTRANSFERASE 18 U/L (12-78); ALBUMIN/GLOBULIN RATIO 1.2 (1.0-2.7); ANION GAP 11 mmol/L (5-15); ASPARTATE AMINO TRANSFERASE 12 U/L (15-37); CALCIUM 8.1 MG/DL (8.5-10.1); CARBON DIOXIDE 23 MMOL/L (21-32); CHLORIDE 105 MMOL/L (98-107); CREATININE 1.6 MG/DL (0.55-1.30); GLOMERULAR FILTRATION RATE 54.3 mL/min (>60); MAGNESIUM 2.2 MG/DL (1.8-2.4); PHOSPHORUS 1.9 MG/DL (2.5-4.9); POTASSIUM 3.7 MMOL/L (3.5-5.1); SODIUM 139 MMOL/L (136-145); TOTAL PROTEIN 6.5 G/DL (6.4-8.2); URIC ACID 9.3 MG/DL (2.6-7.2)
[2017-10-12] MEDS: D5NS 1,000 ML IV SCH ×2 (15:21→22:13)
--- NOTE | 2017-10-12 17:15 | History and Physical Report ---
DATE OF ADMISSION: 10/12/2017 TIME SEEN: At 8 a.m. CONSULTANTS: 1. Rachid Ahmadi M.D. 2. Angie Dunn M.D. CHIEF COMPLAINT: Vomiting, DKA. BRIEF HISTORY: This is a 22-year-old male who has history of IDDM. Apparently yesterday, he started feeling weak and nauseous and started vomiting. He became sicker and sicker, came to [facility], diagnosed with vomiting and DKA, and admitted to ICU for further care. Currently slightly nauseous, weak, in bed in ICU, no complaint. REVIEW OF SYSTEMS: No chest pain. No shortness of breath. Positive nausea, vomiting. No diarrhea. PAST MEDICAL HISTORY: Includes IDDM. PAST SURGICAL HISTORY: None. ALLERGIES: Denies. MEDICATIONS: Include heparin, insulin, dextrose, Novolin, MiraLAX, Tylenol, nitroglycerin, Zofran. SOCIAL HISTORY: Positive for smoking. No alcohol. No intravenous drug abuse. FAMILY HISTORY: Noncontributory. PHYSICAL EXAMINATION: GENERAL: Slightly anxious in bed, oriented x3, in no acute distress. VITAL SIGNS: Temperature 98, pulse 98, respirations 12, and blood pressure 104/52. CARDIOVASCULAR: No murmur. LUNGS: Distant, clear. ABDOMEN: Bowel sounds positive. Nontender, nondistended. EXTREMITIES: No clubbing, cyanosis, or edema. NEUROLOGIC: The patient moves all extremities, but slightly weaker. LABORATORY AND DIAGNOSTIC DATA: Laboratories at this time show white count 19, otherwise CBC is normal. BMP shows BUN/creatinine 37/2.1, otherwise BMP normal. Glucose 300. Urinalysis, 3+ ketones, 4+ glucose. Urine-tox negative. ASSESSMENT: 1. Diabetic ketoacidosis. 2. Insulin-dependent diabetes mellitus. 3. vomiting. 4. Leukocytosis. PLAN: Continue premedications. Antibiotics per infectious disease p.r.n., blood pressure control, antiemetic p.r.n. Dr. Ahmadi, Dr. Dunn, Dr. Chaidez, and Dr. Dowell to consult. Clyde Correa D.O. DR: [place] JOB#: [id number] CC:
[2017-10-12] MEDS: LORazepam Inj 2mg/ml 1ml IV PRN (20:59)
--- NOTE | 2017-10-12 21:45 | Consultation ---
DATE OF CONSULTATION: 10/12/2017 INFECTIOUS DISEASE CONSULTATION CONSULTING PHYSICIAN: Christiano Townsend M.D. This consultation is for coverage of Dr. Dowell. PRIMARY ATTENDING PHYSICIAN: Clyde Correa D.O. REASON FOR CONSULTATION: Leukocytosis. HISTORY OF PRESENT ILLNESS: This is a 22-year-old white male admitted today who is resident of sober living facility for methamphetamine abuse and he was complaining of weakness, body pain, and vomiting. He is diabetic and noncompliant with medication. At the time of admission, he had blood sugar of 1058. He has severe acidosis with carbon dioxide of 6, but, the patient is not in coma. PAST MEDICAL HISTORY: Significant for diabetes type 1 since 5 years ago. He has a history of neuropathy. ALLERGIES: No known drug allergies. MEDICATIONS: Heparin, insulin drip, sodium chloride, MiraLAX, morphine, Tylenol, DuoNeb inhaler, sodium chloride with dextrose. SOCIAL HISTORY: Single. Smoking 20 cigarettes a day. History of methamphetamine abuse. REVIEW OF SYSTEMS: Nausea and vomiting that improved. No dysuria. No coughing. PHYSICAL EXAMINATION: GENERAL APPEARANCE: No acute distress. VITAL SIGNS: Temperature 98.9, pulse is 86. Pulse at the time of admission was 136. HEAD AND NECK: No oral lesion. Dry mouth. HEART: S1 and S2 regular. LUNGS: Clear. ABDOMEN: Soft and nontender. EXTREMITIES: No edema. NEUROLOGIC: He is awake, alert, and oriented. No focal signs. LABORATORY AND DIAGNOSTIC DATA: Chest x-ray was negative. WBC 19.6, coming down from 22.2; hemoglobin 15.1; hematocrit 44.2; and platelets 410. Sodium 140, potassium 4.1, chloride 104, bicarbonate 15, BUN 37, and creatinine 2.1. The latest glucose is 300. Hemoglobin A1c 10.3. Toxicology test was negative. IMPRESSION: Systemic inflammatory response syndrome with leukocytosis and tachycardia likely secondary to diabetic ketoacidosis without any active infection. The patient has acute renal failure, dehydration, and nicotine dependence. RECOMMENDATION: We will observe off antibiotics. We will follow closely. If the patient develops sign of infection, we will start on antibiotic. At the end of my exam, I thank Dr. Clyde Correa for involving me in the care of this patient. Christiano Townsend M.D. DR: SARA JOB#: [id number] CC:
--- NOTE | 2017-10-12 22:30 | Consultation ---
DATE OF CONSULTATION: 10/12/2017 ENDOCRINOLOGY CONSULTATION CONSULTING PHYSICIAN: Rachid Ahmadi M.D. REFERRING PHYSICIAN: Clyde Correa D.O. REASON FOR CONSULTATION: Diabetic ketoacidosis. HISTORY OF PRESENT ILLNESS: The patient is a 22-year-old male with history of insulin-dependent diabetes for many years. Apparently, he was residing in sober living for methamphetamine abuse for the past couple of months and presented with weakness, body pain, vomiting, unable to keep anything down, was found to be in diabetic ketoacidosis, was started on IV fluid and IV insulin, and he will be admitted to the ICU. The patient was in the emergency room. PAST MEDICAL HISTORY: 1. Type 1 diabetes. 2. Hepatitis C. 3. Methamphetamine abuse. PAST SURGICAL HISTORY: None. MEDICATIONS: As an outpatient: 1. Lantus 35 units at bedtime. 2. Humalog sliding scale 20 units before each meal. 3. Seroquel. SOCIAL HISTORY: Methamphetamine abuse and lives in sober living. FAMILY HISTORY: Noncontributory. REVIEW OF SYSTEMS: As per HPI. PHYSICAL EXAMINATION: GENERAL: The patient is awake. VITAL SIGNS: Blood pressure 118/55, pulse of 98, respiratory rate of 12, and temperature of 98.9. HEENT: Pupils equal and reactive to light. Sclerae are anicteric. NECK: No JVD. No thyromegaly. LUNGS: Clear. ABDOMEN: Positive bowel sounds. Soft. EXTREMITIES: No edema. LABORATORY DATA: WBC 22, hemoglobin 15, hematocrit 48, and platelet count of 427,000. Sodium 140, potassium 4.1, chloride 104, bicarbonate 6 on presentation and now it is 15, anion gap 21 and on presentation was 35, glucose on presentation was 1058 and now is down to 300. Lipase is elevated at 63. DIAGNOSES: 1. Diabetic ketoacidosis. 2. Methamphetamine abuse. PLAN: 1. Admit to ICU. 2. Vigorous IV hydration. 3. IV insulin treatment. 4. Monitor electrolytes closely. 5. We will provide subcutaneous insulin once anion gap is closed. 6. Check hemoglobin A1c. 7. Further adjustment according to blood glucose values. Thank you, Dr. Correa, for the courtesy of this consultation. Rachid Ahmadi M.D. DR: TREVER JOB#: [id number] CC:
[2017-10-12] MEDS ORDERED: D5NS 1000ml IV ONE (22:40)
[2017-10-12] MEDS ORDERED: D5 1/2NS 1000ml IV ONE (22:40)
[2017-10-13] VITALS (21 sets, daily range): BP systolic 86–130; BP diastolic 36–83
[2017-10-13] MEDS: Morphine Sulfate 4mg/ml Inj IVP PRN ×4 (01:25→22:25)
[2017-10-13] MEDS: Insulin Rate Change 1 Each MISC PRN ×2 (01:29→08:02)
[2017-10-13] MEDS ORDERED: Insulin Rate Change 1 Each MISC PRN (03:45)
[2017-10-13 05:09] LABS: BASOPHILS % (AUTO) 0.7 % (0.0-2.0); EOSINOPHILS % (AUTO) 0.3 % (0.0-3.0); LYMPHOCYTES % (AUTO) 29.9 % (20.0-45.0); MEAN CORPUSCULAR HEMOGLOBIN 32.4 PG (27.0-31.0); MEAN CORPUSCULAR HGB CONC 35.5 G/DL (32.0-36.0); MEAN CORPUSCULAR VOLUME 91 FL (80-99); MEAN PLATELET VOLUME 6.4 FL (6.5-10.1); MONOCYTES % (AUTO) 6.8 % (1.0-10.0); NEUTROPHILS % (AUTO) 62.4 % (45.0-75.0); PLATELET COUNT 258 K/UL (150-450); RED BLOOD COUNT 4.03 M/UL (4.70-6.10); RED CELL DISTRIBUTION WIDTH 10.9 % (11.6-14.8); WHITE BLOOD COUNT 9.4 K/UL (4.8-10.8)
[2017-10-13] MEDS: D5NS 1,000 ML IV SCH (05:14)
[2017-10-13 05:24] LABS: INR 1.1 (0.9-1.1)
[2017-10-13 05:50] LABS: URIC ACID 5.3 MG/DL (2.6-7.2)
[2017-10-13 05:53] LABS: ALANINE AMINOTRANSFERASE 16 U/L (12-78); ALBUMIN/GLOBULIN RATIO 1.1 (1.0-2.7); ANION GAP 7 mmol/L (5-15); ASPARTATE AMINO TRANSFERASE 14 U/L (15-37); BILIRUBIN,DIRECT < 0.1 MG/DL (0.0-0.3); CALCIUM 8.1 MG/DL (8.5-10.1); CARBON DIOXIDE 24 MMOL/L (21-32); CHLORIDE 110 MMOL/L (98-107); CHOLESTEROL 132 MG/DL (< 200); CHOLESTEROL/HDL RATIO 3.2 (3.3-4.4); CREATININE 1.2 MG/DL (0.55-1.30); GLOMERULAR FILTRATION RATE > 60 mL/min (>60); PHOSPHORUS 1.4 MG/DL (2.5-4.9); POTASSIUM 2.8 MMOL/L (3.5-5.1); SODIUM 141 MMOL/L (136-145); TOTAL PROTEIN 5.6 G/DL (6.4-8.2)
[2017-10-13 07:21] LABS: CRP QUANT < 0.4 mg/dL (0.00-0.90)
--- NOTE | 2017-10-13 07:50 | General Progress Note ---
Assessment/Plan Problem List: (1) Type 1 diabetes mellitus ICD Codes: E10.9 - Type 1 diabetes mellitus without complications SNOMED: 21617388 (2) DKA, type 1 ICD Codes: E10.10 - Type 1 diabetes mellitus with ketoacidosis without coma SNOMED: 96172663, [id number] Qualifiers: Qualified Codes: E10.10 - Type 1 diabetes mellitus with ketoacidosis without coma (3) Leukocytosis ICD Codes: D72.829 - Elevated white blood cell count, unspecified SNOMED: 517279761, 332945236 (4) SHAJI (acute kidney injury) ICD Codes: N17.9 - Acute kidney failure, unspecified SNOMED: 58467713 Assessment/Plan DKA resolved DC insulin drip change IVF to NS start Levemir and Novolog regimen Subjective Allergies: Coded Allergies: No Known Allergies (Unverified , 08/01/17) All Systems: reviewed and negative except above Subjective events noted Objective Last 24 Hour Vital Signs Date Time Temp Pulse Resp B/P (MAP) Pulse Ox O2 Delivery O2 Flow Rate FiO2 10/13/17 07:00 57 11 100/44 100 Room Air 10/13/17 06:00 56 11 90/46 100 Room Air 10/13/17 05:00 98.3 61 16 86/36 99 Room Air 10/13/17 04:00 65 10/13/17 04:00 62 18 100/44 98 Room Air 10/13/17 03:00 68 18 100/45 98 Room Air 10/13/17 02:00 66 20 106/49 100 Room Air 10/13/17 01:00 61 20 106/43 100 Room Air 10/13/17 00:00 98.6 66 16 107/41 100 Room Air 10/13/17 00:00 68 10/12/17 23:00 63 20 121/74 99 Room Air 10/12/17 22:00 73 12 108/43 99 Room Air 10/12/17 21:00 72 16 108/55 100 Room Air 10/12/17 20:00 98.8 68 15 107/62 100 Room Air 10/12/17 20:00 69 10/12/17 19:30 76 20 Room Air 21 10/12/17 19:00 76 15 109/45 100 Room Air 10/12/17 18:00 71 15 111/56 100 Room Air 10/12/17 17:00 76 16 112/54 100 Room Air 10/12/17 16:00 98.6 74 16 102/49 100 Room Air 10/12/17 16:00 70 10/12/17 15:00 71 16 105/49 100 Room Air 10/12/17 14:00 75 16 112/49 100 Room Air 10/12/17 13:00 76 17 104/53 100 Room Air 10/12/17 12:00 75 10/12/17 12:00 98.6 83 17 109/48 100 Room Air 10/12/17 11:00 84 20 120/76 100 Room Air 10/12/17 10:15 87 18 Room Air 21 10/12/17 10:00 90 20 140/70 100 Room Air 10/12/17 09:00 98.6 88 21 121/70 100 Room Air 10/12/17 08:00 86 18 121/66 100 Room Air 10/12/17 08:00 95 Laboratory Tests 10/12/17 13:15: Urine Opiates Screen Negative, Urine Barbiturates Screen Negative, Phencyclidine (PCP) Screen Negative, Urine Amphetamines Screen Negative, Urine Benzodiazepines Screen Negative, Urine Cocaine Screen Negative, Urine Marijuana (THC) Screen Negative 10/12/17 14:23: Sodium Level 139, Potassium Level 3.7, Chloride Level 105, Carbon Dioxide Level 23, Anion Gap 11, Blood Urea Nitrogen 21H, Creatinine 1.6H, Estimat Glomerular Filtration Rate 54.3, Glucose Level 168#H, Uric Acid 9.3H, Calcium Level 8.1L, Phosphorus Level 1.9L, Magnesium Level 2.2, Total Bilirubin 0.4, Aspartate Amino Transf (AST/SGOT) 12L, Alanine Aminotransferase (ALT/SGPT) 18, Alkaline Phosphatase 107, Total Protein 6.5, Albumin 3.5, Globulin 3.0, Albumin/Globulin Ratio 1.2 10/13/17 04:10: Sodium Level 141, Potassium Level 2.8L, Chloride Level 110H, Carbon Dioxide Level 24, Anion Gap 7, Blood Urea Nitrogen 12, Creatinine 1.2, Estimat Glomerular Filtration Rate > 60, Glucose Level 142H, Uric Acid 5.3, Calcium Level 8.1L, Phosphorus Level 1.4L, Magnesium Level 2.0, Total Bilirubin 0.2, Aspartate Amino Transf (AST/SGOT) 14L, Alanine Aminotransferase (ALT/SGPT) 16, Alkaline Phosphatase 92, Total Protein 5.6L, Albumin 2.9L, Globulin 2.7, Albumin /Globulin Ratio 1.1, White Blood Count 9.4#, Red Blood Count 4.03L, Hemoglobin 13.1L, Hematocrit 36.8L, Mean Corpuscular Volume 91, Mean Corpuscular Hemoglobin 32.4H, Mean Corpuscular Hemoglobin Concent 35.5, Red Cell Distribution Width 10.9L, Platelet Count 258, Mean Platelet Volume 6.4L, Neutrophils (%) (Auto) 62.4, Lymphocytes (%) (Auto) 29.9, Monocytes (%) (Auto) 6.8, Eosinophils (%) (Auto) 0.3, Basophils (%) (Auto) 0.7, Prothrombin Time 11.0 , Prothromb Time International Ratio 1.1, Activated Partial Thromboplast Time 28 , Direct Bilirubin < 0.1, Gamma Glutamyl Transpeptidase 19, Total Creatine Kinase 76, C-Reactive Protein, Quantitative < 0.4, Triglycerides Level 215H, Cholesterol Level 132, LDL Cholesterol 61, HDL Cholesterol 41, Cholesterol/HDL Ratio 3.2L Height (Feet): 5 Height (Inches): 10.00 Weight (Pounds): 150 General Appearance: no apparent distress Cardiovascular: normal rate Respiratory/Chest: lungs clear Abdomen: non tender Pelvis: normal external exam Edema: no edema noted Arm (L), no edema noted Arm (R), no edema noted Leg (L), no edema noted Leg (R), no edema noted Pedal (L), no edema noted Pedal (R), no edema noted Generalized Objective Current Medications Medications (Trade) Dose Ordered Sig/Alfredo Route PRN Reason Start Time Stop Time Status Last Admin Dose Admin Acetaminophen (Tylenol) 650 mg Q4H PRN ORAL Fever 10/12/17 07:00 11/11/17 06:59 Albuterol/ Ipratropium (Albuterol/ Ipratropium) 3 ml EVERY 4 HOURS PRN HHN Shortness of Breath 10/12/17 07:00 10/17/17 06:59 Dextrose (Dextrose 50%) PRN PRN IV HYPOGLYCEMIA 10/13/17 03:45 11/12/17 03:44 Dextrose/Sodium Chloride 1,000 ml @ 150 mls/hr Q6H40M IV 10/12/17 15:30 11/11/17 15:29 10/13/17 05:14 Heparin Sodium (Porcine) (Heparin 5000 units/ml) 5,000 units EVERY 12 HOURS SUBQ 10/12/17 09:00 11/11/17 08:59 10/12/17 21:08 Insulin Human Regular (NovoLIN R) 5 units PRN PRN IV BS 200-299 10/12/17 21:45 11/11/17 21:44 10/13/17 03:05 Insulin Human Regular (NovoLIN R) 5 units PRN PRN IV BS 200-299 10/13/17 03:45 11/12/17 03:44 Insulin Human Regular (NovoLIN R) 10 units PRN PRN IV BS=>300 10/12/17 21:45 11/11/17 21:44 Insulin Human Regular (NovoLIN R) 10 units PRN PRN IV BS=>300 10/13/17 03:45 11/12/17 03:44 Insulin Human Regular 100 units/ Sodium Chloride 101 ml @ 0 mls/hr Q24H IV 10/13/17 04:30 11/12/17 03:44 10/13/17 04:28 Lansoprazole (Prevacid) 30 mg DAILY GT 10/12/17 12:00 11/11/17 11:59 10/12/17 13:45 Lorazepam (Ativan 2mg/ml 1ml) 2 mg EVERY 2 HOURS PRN IV agitation 10/12/17 07:00 10/19/17 06:59 10/12/17 20:59 Miscellaneous Medication (Insulin Rate Change) 1 ea PRN PRN MISC To Patient Comfort 10/12/17 07:00 11/11/17 06:59 Miscellaneous Medication (Insulin Rate Change) 1 ea PRN PRN MISC Hypoglycemia 10/12/17 21:45 11/11/17 21:44 10/13/17 01:29 Miscellaneous Medication (Insulin Rate Change) 1 ea PRN PRN MISC Hypoglycemia 10/13/17 03:45 11/12/17 03:44 Morphine Sulfate (Morphine Sulfate) 4 mg EVERY 4 HOURS PRN IVP Severe Pain (Pain Scale 7-10) 10/12/17 07:00 10/19/17 06:59 10/13/17 01:25 Nitroglycerin (Ntg) 0.4 mg Q5M PRN SL Prn Chest Pain 10/12/17 07:00 11/11/17 06:59 Ondansetron HCl (Zofran) 4 mg Q6H PRN IVP Nausea & Vomiting 10/12/17 07:00 11/11/17 06:59 Polyethylene Glycol (Miralax) 17 gm DAILYPRN PRN ORAL Constipation 10/12/17 07:00 11/11/17 06:59 Potassium Chloride 20 meq/ Sodium Chloride 285 ml @ 142.5 mls/ hr Q2HR IVPB 10/13/17 16:00 10/13/17 21:59 Potassium Phosphate 30 mm/ Sodium Chloride 560 ml @ 93.3 mls/hr ONCE ONCE IV 10/13/17 09:00 10/13/17 15:00 Item Value Date Time Bedside Blood Glucose 95 mg/dl 10/13/17 0700 Bedside Blood Glucose 111 mg/dl 10/13/17 0600 Bedside Blood Glucose 193 mg/dl H 10/13/17 0200 Bedside Blood Glucose 184 mg/dl H 10/12/17 2239 Bedside Blood Glucose 104 mg/dl 10/12/17 1800 Bedside Blood Glucose 149 mg/dl H 10/12/17 1400 Bedside Blood Glucose 264 mg/dl H 10/12/17 1000 Bedside Blood Glucose 267 mg/dl H 10/12/17 0625 SERGIO LE Oct 13, 2017 07:50
--- NOTE | 2017-10-13 08:54 | Infectious Diseases Prog Note ---
Assessment/Plan Assessment/Plan A: Leukocytosis resolved DKA DM type I Nicotine dependence Hypokalemia P; Observe off antibiotic Subjective ROS Limited/Unobtainable: No Constitutional: Reports: no symptoms Gastrointestinal/Abdominal: Reports: nausea, vomiting Musculoskeletal: Reports: pain, other - back pain Allergies: Coded Allergies: No Known Allergies (Unverified , 08/01/17) Objective Vital Signs Last 24 Hour Vital Signs Date Time Temp Pulse Resp B/P (MAP) Pulse Ox O2 Delivery O2 Flow Rate FiO2 10/13/17 08:00 86 10/13/17 08:00 97.4 68 16 115/62 100 Room Air 10/13/17 07:00 57 11 100/44 100 Room Air 10/13/17 06:00 56 11 90/46 100 Room Air 10/13/17 05:00 98.3 61 16 86/36 99 Room Air 10/13/17 04:00 65 10/13/17 04:00 62 18 100/44 98 Room Air 10/13/17 03:00 68 18 100/45 98 Room Air 10/13/17 02:00 66 20 106/49 100 Room Air 10/13/17 01:00 61 20 106/43 100 Room Air 10/13/17 00:00 98.6 66 16 107/41 100 Room Air 10/13/17 00:00 68 10/12/17 23:00 63 20 121/74 99 Room Air 10/12/17 22:00 73 12 108/43 99 Room Air 10/12/17 21:00 72 16 108/55 100 Room Air 10/12/17 20:00 98.8 68 15 107/62 100 Room Air 10/12/17 20:00 69 10/12/17 19:30 76 20 Room Air 21 10/12/17 19:00 76 15 109/45 100 Room Air 10/12/17 18:00 71 15 111/56 100 Room Air 10/12/17 17:00 76 16 112/54 100 Room Air 10/12/17 16:00 98.6 74 16 102/49 100 Room Air 10/12/17 16:00 70 10/12/17 15:00 71 16 105/49 100 Room Air 10/12/17 14:00 75 16 112/49 100 Room Air 10/12/17 13:00 76 17 104/53 100 Room Air 10/12/17 12:00 75 10/12/17 12:00 98.6 83 17 109/48 100 Room Air 10/12/17 11:00 84 20 120/76 100 Room Air 10/12/17 10:15 87 18 Room Air 21 10/12/17 10:00 90 20 140/70 100 Room Air 10/12/17 09:00 98.6 88 21 121/70 100 Room Air Height (Feet): 5 Height (Inches): 10.00 Weight (Pounds): 150 General Appearance: no acute distress HEENT: mucous membranes moist Respiratory/Chest: lungs clear Cardiovascular: normal rate Abdomen: soft, non tender Extremities: no edema Neurologic/Psychiatric: alert, oriented x 3, responsive Laboratory Tests Test 10/12/17 13:15 10/12/17 14:23 10/13/17 04:10 Urine Opiates Screen Negative (NEGATIVE) Urine Barbiturates Screen Negative (NEGATIVE) Phencyclidine (PCP) Screen Negative (NEGATIVE) Urine Amphetamines Screen Negative (NEGATIVE) Urine Benzodiazepines Screen Negative (NEGATIVE) Urine Cocaine Screen Negative (NEGATIVE) Urine Marijuana (THC) Screen Negative (NEGATIVE) Sodium Level 139 MMOL/L (136-145) 141 MMOL/L (136-145) Potassium Level 3.7 MMOL/L (3.5-5.1) 2.8 MMOL/L (3.5-5.1) L Chloride Level 105 MMOL/L (98-107) 110 MMOL/L (98-107) H Carbon Dioxide Level 23 MMOL/L (21-32) 24 MMOL/L (21-32) Anion Gap 11 mmol/L (5-15) 7 mmol/L (5-15) Blood Urea Nitrogen 21 mg/dL (7-18) H 12 mg/dL (7-18) Creatinine 1.6 MG/DL (0.55-1.30) H 1.2 MG/DL (0.55-1.30) Estimat Glomerular Filtration Rate 54.3 mL/min (>60) > 60 mL/min (>60) Glucose Level 168 MG/DL (74-106) #H 142 MG/DL (74-106) H Uric Acid 9.3 MG/DL (2.6-7.2) H 5.3 MG/DL (2.6-7.2) Calcium Level 8.1 MG/DL (8.5-10.1) L 8.1 MG/DL (8.5-10.1) L Phosphorus Level 1.9 MG/DL (2.5-4.9) L 1.4 MG/DL (2.5-4.9) L Magnesium Level 2.2 MG/DL (1.8-2.4) 2.0 MG/DL (1.8-2.4) Total Bilirubin 0.4 MG/DL (0.2-1.0) 0.2 MG/DL (0.2-1.0) Aspartate Amino Transf (AST/SGOT) 12 U/L (15-37) L 14 U/L (15-37) L Alanine Aminotransferase (ALT/SGPT) 18 U/L (12-78) 16 U/L (12-78) Alkaline Phosphatase 107 U/L (46-116) 92 U/L (46-116) Total Protein 6.5 G/DL (6.4-8.2) 5.6 G/DL (6.4-8.2) L Albumin 3.5 G/DL (3.4-5.0) 2.9 G/DL (3.4-5.0) L Globulin 3.0 g/dL 2.7 g/dL Albumin/Globulin Ratio 1.2 (1.0-2.7) 1.1 (1.0-2.7) White Blood Count 9.4 K/UL (4.8-10.8) # Red Blood Count 4.03 M/UL (4.70-6.10) L Hemoglobin 13.1 G/DL (14.2-18.0) L Hematocrit 36.8 % (42.0-52.0) L Mean Corpuscular Volume 91 FL (80-99) Mean Corpuscular Hemoglobin 32.4 PG (27.0-31.0) H Mean Corpuscular Hemoglobin Concent 35.5 G/DL (32.0-36.0) Red Cell Distribution Width 10.9 % (11.6-14.8) L Platelet Count 258 K/UL (150-450) Mean Platelet Volume 6.4 FL (6.5-10.1) L Neutrophils (%) (Auto) 62.4 % (45.0-75.0) Lymphocytes (%) (Auto) 29.9 % (20.0-45.0) Monocytes (%) (Auto) 6.8 % (1.0-10.0) Eosinophils (%) (Auto) 0.3 % (0.0-3.0) Basophils (%) (Auto) 0.7 % (0.0-2.0) Prothrombin Time 11.0 SEC (9.30-11.50) Prothromb Time International Ratio 1.1 (0.9-1.1) Activated Partial Thromboplast Time 28 SEC (23-33) Direct Bilirubin < 0.1 MG/DL (0.0-0.3) Gamma Glutamyl Transpeptidase 19 U/L (5-85) Total Creatine Kinase 76 U/L (26-308) C-Reactive Protein, Quantitative < 0.4 mg/dL (0.00-0.90) Triglycerides Level 215 MG/DL (30-150) H Cholesterol Level 132 MG/DL (< 200) LDL Cholesterol 61 mg/dL (<100) HDL Cholesterol 41 MG/DL (40-60) Cholesterol/HDL Ratio 3.2 (3.3-4.4) L Current Medications Medications (Trade) Dose Ordered Sig/Alfredo Route PRN Reason Start Time Stop Time Status Last Admin Dose Admin Acetaminophen (Tylenol) 650 mg Q4H PRN ORAL Fever 10/12/17 07:00 11/11/17 06:59 Albuterol/ Ipratropium (Albuterol/ Ipratropium) 3 ml EVERY 4 HOURS PRN HHN Shortness of Breath 10/12/17 07:00 10/17/17 06:59 Dextrose (Dextrose 50%) PRN PRN IV HYPOGLYCEMIA 10/13/17 03:45 10/13/17 08:59 Dextrose (Dextrose 50%) STAT PRN IV Hypoglycemia 10/13/17 09:00 11/12/17 08:59 Heparin Sodium (Porcine) (Heparin 5000 units/ml) 5,000 units EVERY 12 HOURS SUBQ 10/12/17 09:00 11/11/17 08:59 10/12/17 21:08 Insulin Aspart (NovoLOG) BEFORE MEALS AND HS SUBQ 10/13/17 11:30 11/12/17 11:29 Insulin Aspart (NovoLOG) 7 units NOVOTIAC SUBQ 10/13/17 11:50 11/12/17 11:49 Insulin Detemir (Levemir) 26 units DAILY SUBQ 10/13/17 09:00 11/12/17 08:59 Insulin Human Regular (NovoLIN R) 5 units PRN PRN IV BS 200-299 10/13/17 03:45 11/12/17 03:44 Insulin Human Regular (NovoLIN R) 10 units PRN PRN IV BS=>300 10/13/17 03:45 11/12/17 03:44 Insulin Human Regular 100 units/ Sodium Chloride 101 ml @ 0 mls/hr Q24H IV 10/13/17 04:30 11/12/17 03:44 10/13/17 04:28 Lansoprazole (Prevacid) 30 mg DAILY GT 10/12/17 12:00 11/11/17 11:59 10/12/17 13:45 Lorazepam (Ativan 2mg/ml 1ml) 2 mg EVERY 2 HOURS PRN IV agitation 10/12/17 07:00 10/19/17 06:59 10/12/17 20:59 Miscellaneous Medication (Insulin Rate Change) 1 ea PRN PRN MISC To Patient Comfort 10/12/17 07:00 11/11/17 06:59 Miscellaneous Medication (Insulin Rate Change) 1 ea PRN PRN MISC Hypoglycemia 10/12/17 21:45 11/11/17 21:44 10/13/17 08:02 Miscellaneous Medication (Insulin Rate Change) 1 ea PRN PRN MISC Hypoglycemia 10/13/17 03:45 11/12/17 03:44 Morphine Sulfate (Morphine Sulfate) 4 mg EVERY 4 HOURS PRN IVP Severe Pain (Pain Scale 7-10) 10/12/17 07:00 10/19/17 06:59 10/13/17 01:25 Nitroglycerin (Ntg) 0.4 mg Q5M PRN SL Prn Chest Pain 10/12/17 07:00 11/11/17 06:59 Ondansetron HCl (Zofran) 4 mg Q6H PRN IVP Nausea & Vomiting 10/12/17 07:00 11/11/17 06:59 Polyethylene Glycol (Miralax) 17 gm DAILYPRN PRN ORAL Constipation 10/12/17 07:00 11/11/17 06:59 Potassium Chloride 20 meq/ Sodium Chloride 285 ml @ 142.5 mls/ hr Q2HR IVPB 10/13/17 16:00 10/13/17 21:59 Potassium Phosphate 30 mm/ Sodium Chloride 560 ml @ 93.3 mls/hr ONCE ONCE IV 10/13/17 09:00 10/13/17 15:00 Sodium Chloride 1,000 ml @ 100 mls/hr Q10H IV 10/13/17 09:00 11/12/17 08:59 KATLYN BRAXTON Oct 13, 2017 08:54
[2017-10-13] MEDS: Heparin 5000 units/ml inj SUBQ SCH ×2 (08:59→22:28)
[2017-10-13] MEDS ORDERED: NS w/KCl 20mEq 1,000 ML IV SCH (09:00)
[2017-10-13] MEDS ORDERED: Potassium Phosphate 30 MM in Sodium Chloride 500ML 550 ML IV ONE (09:00)
[2017-10-13] MEDS: Levemir Flexpen SUBQ SCH (09:14)
--- NOTE | 2017-10-13 09:30 | Nephrology Progress Note ---
Assessment/Plan Problem List: (1) SHAJI (acute kidney injury) (2) Dehydration, severe (3) DKA, type 1 (4) Drug abuse Assessment DKA severe dehydration ARF 2 to dehydration DM type 1 Leukocytosis, likely reactive r/o infection Hx of amphetamine abuse Noncompliance Plan ICU care Insulin gtt as per protocol, until anion gap closed then will change to long and short acting regimen endo advise- generous IVF hydration , monitor renal parameters lytes , correct as needed avoid nephrotoxic Subjective ROS Limited/Unobtainable: No Constitutional: Reports: other - feels better Objective Objective Last 24 Hour Vital Signs Date Time Temp Pulse Resp B/P (MAP) Pulse Ox O2 Delivery O2 Flow Rate FiO2 10/13/17 08:00 86 10/13/17 08:00 97.4 68 16 115/62 100 Room Air 10/13/17 07:00 57 11 100/44 100 Room Air 10/13/17 06:00 56 11 90/46 100 Room Air 10/13/17 05:00 98.3 61 16 86/36 99 Room Air 10/13/17 04:00 65 10/13/17 04:00 62 18 100/44 98 Room Air 10/13/17 03:00 68 18 100/45 98 Room Air 10/13/17 02:00 66 20 106/49 100 Room Air 10/13/17 01:00 61 20 106/43 100 Room Air 10/13/17 00:00 98.6 66 16 107/41 100 Room Air 10/13/17 00:00 68 10/12/17 23:00 63 20 121/74 99 Room Air 10/12/17 22:00 73 12 108/43 99 Room Air 10/12/17 21:00 72 16 108/55 100 Room Air 10/12/17 20:00 98.8 68 15 107/62 100 Room Air 10/12/17 20:00 69 10/12/17 19:30 76 20 Room Air 21 10/12/17 19:00 76 15 109/45 100 Room Air 10/12/17 18:00 71 15 111/56 100 Room Air 10/12/17 17:00 76 16 112/54 100 Room Air 10/12/17 16:00 98.6 74 16 102/49 100 Room Air 10/12/17 16:00 70 11/19/17 15:00 71 16 105/49 100 Room Air 10/12/17 14:00 75 16 112/49 100 Room Air 10/12/17 13:00 76 17 104/53 100 Room Air 10/12/17 12:00 75 10/12/17 12:00 98.6 83 17 109/48 100 Room Air 10/12/17 11:00 84 20 120/76 100 Room Air 10/12/17 10:15 87 18 Room Air 21 10/12/17 10:00 90 20 140/70 100 Room Air Intake and Output 10/13/17 10/14/17 19:00 07:00 Intake Total 151.5 ml Output Total 450 ml Balance -298.5 ml IV Total 151.5 ml Output Urine Total 450 ml Laboratory Tests 10/12/17 13:15: Urine Opiates Screen Negative, Urine Barbiturates Screen Negative, Phencyclidine (PCP) Screen Negative, Urine Amphetamines Screen Negative, Urine Benzodiazepines Screen Negative, Urine Cocaine Screen Negative, Urine Marijuana (THC) Screen Negative 10/12/17 14:23: Sodium Level 139, Potassium Level 3.7, Chloride Level 105, Carbon Dioxide Level 23, Anion Gap 11, Blood Urea Nitrogen 21H, Creatinine 1.6H, Estimat Glomerular Filtration Rate 54.3, Glucose Level 168#H, Uric Acid 9.3H, Calcium Level 8.1L, Phosphorus Level 1.9L, Magnesium Level 2.2, Total Bilirubin 0.4, Aspartate Amino Transf (AST/SGOT) 12L, Alanine Aminotransferase (ALT/SGPT) 18, Alkaline Phosphatase 107, Total Protein 6.5, Albumin 3.5, Globulin 3.0, Albumin/Globulin Ratio 1.2 10/13/17 04:10: Sodium Level 141, Potassium Level 2.8L, Chloride Level 110H, Carbon Dioxide Level 24, Anion Gap 7, Blood Urea Nitrogen 12, Creatinine 1.2, Estimat Glomerular Filtration Rate > 60, Glucose Level 142H, Uric Acid 5.3, Calcium Level 8.1L, Phosphorus Level 1.4L, Magnesium Level 2.0, Total Bilirubin 0.2, Aspartate Amino Transf (AST/SGOT) 14L, Alanine Aminotransferase (ALT/SGPT) 16, Alkaline Phosphatase 92, Total Protein 5.6L, Albumin 2.9L, Globulin 2.7, Albumin /Globulin Ratio 1.1, White Blood Count 9.4#, Red Blood Count 4.03L, Hemoglobin 13.1L, Hematocrit 36.8L, Mean Corpuscular Volume 91, Mean Corpuscular Hemoglobin 32.4H, Mean Corpuscular Hemoglobin Concent 35.5, Red Cell Distribution Width 10.9L, Platelet Count 258, Mean Platelet Volume 6.4L, Neutrophils (%) (Auto) 62.4, Lymphocytes (%) (Auto) 29.9, Monocytes (%) (Auto) 6.8, Eosinophils (%) (Auto) 0.3, Basophils (%) (Auto) 0.7, Prothrombin Time 11.0 , Prothromb Time International Ratio 1.1, Activated Partial Thromboplast Time 28 , Direct Bilirubin < 0.1, Gamma Glutamyl Transpeptidase 19, Total Creatine Kinase 76, C-Reactive Protein, Quantitative < 0.4, Triglycerides Level 215H, Cholesterol Level 132, LDL Cholesterol 61, HDL Cholesterol 41, Cholesterol/HDL Ratio 3.2L Height (Feet): 5 Height (Inches): 10.00 Weight (Pounds): 150 NAPOLEON KAUFMAN Oct 13, 2017 09:30
--- NOTE | 2017-10-13 10:26 | Pulmonolgy Critical Care Note ---
Critical Care - Asmt/Plan Problems: (1) DKA, type 1 (2) Leukocytosis (3) Drug abuse Respiratory: monitor respiratory rate, adjust FIO2 Cardiac: continue to monitor HR/BP Renal: F/U I&O, decrease IV fluid, check electrolytes Infectious Disease: check cultures Gastrointestinal: continue feedings/current rate Endocrine: monitor blood sugar, continue sliding scale insulin Hematologic: monitor H/H, transfuse if hgb<8.5 Neurologic: PRN Morphine, keep patient comfortable Prophylaxis: Protonix, Heparin Disposition: transfer to Notes Reviewed: senior ui ux developer, cardio Discussed with: nurses, consultants, correctional case records supervisorcirculation manager - Objective Last 24 Hour Vital Signs Date Time Temp Pulse Resp B/P (MAP) Pulse Ox O2 Delivery O2 Flow Rate FiO2 10/13/17 08:00 86 10/13/17 08:00 97.4 68 16 115/62 100 Room Air 10/13/17 07:00 57 11 100/44 100 Room Air 10/13/17 06:00 56 11 90/46 100 Room Air 10/13/17 05:00 98.3 61 16 86/36 99 Room Air 10/13/17 04:00 65 10/13/17 04:00 62 18 100/44 98 Room Air 10/13/17 03:00 68 18 100/45 98 Room Air 10/13/17 02:00 66 20 106/49 100 Room Air 10/13/17 01:00 61 20 106/43 100 Room Air 10/13/17 00:00 98.6 66 16 107/41 100 Room Air 10/13/17 00:00 68 10/12/17 23:00 63 20 121/74 99 Room Air 10/12/17 22:00 73 12 108/43 99 Room Air 10/12/17 21:00 72 16 108/55 100 Room Air 10/12/17 20:00 98.8 68 15 107/62 100 Room Air 10/12/17 20:00 69 10/12/17 19:30 76 20 Room Air 21 10/12/17 19:00 76 15 109/45 100 Room Air 10/12/17 18:00 71 15 111/56 100 Room Air 10/12/17 17:00 76 16 112/54 100 Room Air 10/12/17 16:00 98.6 74 16 102/49 100 Room Air 10/12/17 16:00 70 10/12/17 15:00 71 16 105/49 100 Room Air 10/12/17 14:00 75 16 112/49 100 Room Air 10/12/17 13:00 76 17 104/53 100 Room Air 10/12/17 12:00 75 10/12/17 12:00 98.6 83 17 109/48 100 Room Air 10/12/17 11:00 84 20 120/76 100 Room Air Status: awake Condition: critical HEENT: atraumatic Lungs: clear Heart: HR/BP stable, HR/BP unstable Abdomen: non-tender, active bowel sounds Extremities: no C/C/E, edema Decubiti: location Accucheck: 222 Critical Care - Subjective ROS Limited/Unobtainable: No ICU Day: 2 Condition: critical EKG Rhythm: Sinus Rhythm FI02: 21 Sputum Amount: None I&O: Intake and Output 10/13/17 10/14/17 19:00 07:00 Intake Total 151.5 ml Output Total 450 ml Balance -298.5 ml IV Total 151.5 ml Output Urine Total 450 ml CXR: no infiltate Labs: Laboratory Tests Test 10/12/17 13:15 10/12/17 14:23 10/13/17 04:10 Urine Opiates Screen Negative (NEGATIVE) Urine Barbiturates Screen Negative (NEGATIVE) Phencyclidine (PCP) Screen Negative (NEGATIVE) Urine Amphetamines Screen Negative (NEGATIVE) Urine Benzodiazepines Screen Negative (NEGATIVE) Urine Cocaine Screen Negative (NEGATIVE) Urine Marijuana (THC) Screen Negative (NEGATIVE) Sodium Level 139 MMOL/L (136-145) 141 MMOL/L (136-145) Potassium Level 3.7 MMOL/L (3.5-5.1) 2.8 MMOL/L (3.5-5.1) L Chloride Level 105 MMOL/L (98-107) 110 MMOL/L (98-107) H Carbon Dioxide Level 23 MMOL/L (21-32) 24 MMOL/L (21-32) Anion Gap 11 mmol/L (5-15) 7 mmol/L (5-15) Blood Urea Nitrogen 21 mg/dL (7-18) H 12 mg/dL (7-18) Creatinine 1.6 MG/DL (0.55-1.30) H 1.2 MG/DL (0.55-1.30) Estimat Glomerular Filtration Rate 54.3 mL/min (>60) > 60 mL/min (>60) Glucose Level 168 MG/DL (74-106) #H 142 MG/DL (74-106) H Uric Acid 9.3 MG/DL (2.6-7.2) H 5.3 MG/DL (2.6-7.2) Calcium Level 8.1 MG/DL (8.5-10.1) L 8.1 MG/DL (8.5-10.1) L Phosphorus Level 1.9 MG/DL (2.5-4.9) L 1.4 MG/DL (2.5-4.9) L Magnesium Level 2.2 MG/DL (1.8-2.4) 2.0 MG/DL (1.8-2.4) Total Bilirubin 0.4 MG/DL (0.2-1.0) 0.2 MG/DL (0.2-1.0) Aspartate Amino Transf (AST/SGOT) 12 U/L (15-37) L 14 U/L (15-37) L Alanine Aminotransferase (ALT/SGPT) 18 U/L (12-78) 16 U/L (12-78) Alkaline Phosphatase 107 U/L (46-116) 92 U/L (46-116) Total Protein 6.5 G/DL (6.4-8.2) 5.6 G/DL (6.4-8.2) L Albumin 3.5 G/DL (3.4-5.0) 2.9 G/DL (3.4-5.0) L Globulin 3.0 g/dL 2.7 g/dL Albumin/Globulin Ratio 1.2 (1.0-2.7) 1.1 (1.0-2.7) White Blood Count 9.4 K/UL (4.8-10.8) # Red Blood Count 4.03 M/UL (4.70-6.10) L Hemoglobin 13.1 G/DL (14.2-18.0) L Hematocrit 36.8 % (42.0-52.0) L Mean Corpuscular Volume 91 FL (80-99) Mean Corpuscular Hemoglobin 32.4 PG (27.0-31.0) H Mean Corpuscular Hemoglobin Concent 35.5 G/DL (32.0-36.0) Red Cell Distribution Width 10.9 % (11.6-14.8) L Platelet Count 258 K/UL (150-450) Mean Platelet Volume 6.4 FL (6.5-10.1) L Neutrophils (%) (Auto) 62.4 % (45.0-75.0) Lymphocytes (%) (Auto) 29.9 % (20.0-45.0) Monocytes (%) (Auto) 6.8 % (1.0-10.0) Eosinophils (%) (Auto) 0.3 % (0.0-3.0) Basophils (%) (Auto) 0.7 % (0.0-2.0) Prothrombin Time 11.0 SEC (9.30-11.50) Prothromb Time International Ratio 1.1 (0.9-1.1) Activated Partial Thromboplast Time 28 SEC (23-33) Direct Bilirubin < 0.1 MG/DL (0.0-0.3) Gamma Glutamyl Transpeptidase 19 U/L (5-85) Total Creatine Kinase 76 U/L (26-308) C-Reactive Protein, Quantitative < 0.4 mg/dL (0.00-0.90) Triglycerides Level 215 MG/DL (30-150) H Cholesterol Level 132 MG/DL (< 200) LDL Cholesterol 61 mg/dL (<100) HDL Cholesterol 41 MG/DL (40-60) Cholesterol/HDL Ratio 3.2 (3.3-4.4) VALERY QUIROS Oct 13, 2017 10:26
[2017-10-13] MEDS: NovoLOG Insulin Flexpen SUBQ SCH ×5 (11:30→22:30)
[2017-10-13] MEDS: LORazepam Inj 2mg/ml 1ml IV PRN ×2 (12:30→22:43)
[2017-10-13] MEDS: Phospha 250 Neutral tab ORAL SCH ×2 (12:30→17:04)
--- NOTE | 2017-10-13 13:20 | General Progress Note ---
Assessment/Plan Problem List: (1) Dehydration, severe ICD Codes: E86.0 - Dehydration SNOMED: 750432132 (2) Type 1 diabetes mellitus ICD Codes: E10.9 - Type 1 diabetes mellitus without complications SNOMED: 64672901 (3) DKA, type 1 ICD Codes: E10.10 - Type 1 diabetes mellitus with ketoacidosis without coma SNOMED: 32351918, 522077893 Qualifiers: Qualified Codes: E10.10 - Type 1 diabetes mellitus with ketoacidosis without coma (4) Leukocytosis ICD Codes: D72.829 - Elevated white blood cell count, unspecified SNOMED: 832479999, 561818267 (5) SHAJI (acute kidney injury) ICD Codes: N17.9 - Acute kidney failure, unspecified SNOMED: 37957484 Status: stable, progressing, tolerating diet Assessment/Plan bs control endo f/u cbc bmp am Subjective Allergies: Coded Allergies: No Known Allergies (Unverified , 08/01/17) All Systems: reviewed and negative except above Subjective calm in bed eating Objective Last 24 Hour Vital Signs Date Time Temp Pulse Resp B/P (MAP) Pulse Ox O2 Delivery O2 Flow Rate FiO2 10/13/17 13:00 87 16 124/66 100 Room Air 10/13/17 12:00 62 10/13/17 12:00 97.6 62 18 111/65 100 Room Air 10/13/17 11:00 72 19 104/50 100 Room Air 10/13/17 10:00 62 17 99/54 100 Room Air 10/13/17 09:00 72 20 114/64 100 Room Air 10/13/17 08:00 86 10/13/17 08:00 97.4 68 16 115/62 100 Room Air 10/13/17 07:00 57 11 100/44 100 Room Air 10/13/17 06:42 58 16 Room Air 21 10/13/17 06:00 56 11 90/46 100 Room Air 10/13/17 05:00 98.3 61 16 86/36 99 Room Air 10/13/17 04:00 65 10/13/17 04:00 62 18 100/44 98 Room Air 10/13/17 03:00 68 18 100/45 98 Room Air 10/13/17 02:00 66 20 106/49 100 Room Air 10/13/17 01:00 61 20 106/43 100 Room Air 10/13/17 00:00 98.6 66 16 107/41 100 Room Air 10/13/17 00:00 68 10/12/17 23:00 63 20 121/74 99 Room Air 10/12/17 22:00 73 12 108/43 99 Room Air 10/12/17 21:00 72 16 108/55 100 Room Air 10/12/17 20:00 98.8 68 15 107/62 100 Room Air 10/12/17 20:00 69 10/12/17 19:30 76 20 Room Air 21 10/12/17 19:00 76 15 109/45 100 Room Air 10/12/17 18:00 71 15 111/56 100 Room Air 10/12/17 17:00 76 16 112/54 100 Room Air 10/12/17 16:00 98.6 74 16 102/49 100 Room Air 10/12/17 16:00 70 10/12/17 15:00 71 16 105/49 100 Room Air 10/12/17 14:00 75 16 112/49 100 Room Air Intake and Output 10/13/17 10/14/17 19:00 07:00 Intake Total 1164.7 ml Output Total 450 ml Balance 714.7 ml Intake Oral 240 ml IV Total 924.7 ml Output Urine Total 450 ml Laboratory Tests 10/12/17 14:23: Sodium Level 139, Potassium Level 3.7, Chloride Level 105, Carbon Dioxide Level 23, Anion Gap 11, Blood Urea Nitrogen 21H, Creatinine 1.6H, Estimat Glomerular Filtration Rate 54.3, Glucose Level 168#H, Uric Acid 9.3H, Calcium Level 8.1L, Phosphorus Level 1.9L, Magnesium Level 2.2, Total Bilirubin 0.4, Aspartate Amino Transf (AST/SGOT) 12L, Alanine Aminotransferase (ALT/SGPT) 18, Alkaline Phosphatase 107, Total Protein 6.5, Albumin 3.5, Globulin 3.0, Albumin/Globulin Ratio 1.2 10/13/17 04:10: Sodium Level 141, Potassium Level 2.8L, Chloride Level 110H, Carbon Dioxide Level 24, Anion Gap 7, Blood Urea Nitrogen 12, Creatinine 1.2, Estimat Glomerular Filtration Rate > 60, Glucose Level 142H, Uric Acid 5.3, Calcium Level 8.1L, Phosphorus Level 1.4L, Magnesium Level 2.0, Total Bilirubin 0.2, Aspartate Amino Transf (AST/SGOT) 14L, Alanine Aminotransferase (ALT/SGPT) 16, Alkaline Phosphatase 92, Total Protein 5.6L, Albumin 2.9L, Globulin 2.7, Albumin /Globulin Ratio 1.1, White Blood Count 9.4#, Red Blood Count 4.03L, Hemoglobin 13.1L, Hematocrit 36.8L, Mean Corpuscular Volume 91, Mean Corpuscular Hemoglobin 32.4H, Mean Corpuscular Hemoglobin Concent 35.5, Red Cell Distribution Width 10.9L, Platelet Count 258, Mean Platelet Volume 6.4L, Neutrophils (%) (Auto) 62.4, Lymphocytes (%) (Auto) 29.9, Monocytes (%) (Auto) 6.8, Eosinophils (%) (Auto) 0.3, Basophils (%) (Auto) 0.7, Prothrombin Time 11.0 , Prothromb Time International Ratio 1.1, Activated Partial Thromboplast Time 28 , Direct Bilirubin < 0.1, Gamma Glutamyl Transpeptidase 19, Total Creatine Kinase 76, C-Reactive Protein, Quantitative < 0.4, Triglycerides Level 215H, Cholesterol Level 132, LDL Cholesterol 61, HDL Cholesterol 41, Cholesterol/HDL Ratio 3.2L Height (Feet): 5 Height (Inches): 10.00 Weight (Pounds): 150 General Appearance: alert EENT: normal ENT inspection Neck: normal alignment Cardiovascular: normal peripheral pulses, normal rate, regular rhythm Respiratory/Chest: chest wall non-tender, lungs clear, normal breath sounds Abdomen: normal bowel sounds, non tender, soft Extremities: normal inspection Edema: no edema noted Arm (L), no edema noted Arm (R), no edema noted Leg (L), no edema noted Leg (R), no edema noted Pedal (L), no edema noted Pedal (R), no edema noted Generalized Neurologic: responsive, motor weakness Skin: normal pigmentation, warm/dry SIGIFREDO ABREU Oct 13, 2017 13:20
[2017-10-13] MEDS ORDERED: D5NS 1000ml IV ONE (15:59)
[2017-10-13] MEDS: Potassium Chloride 20 MEQ/ NS 275 ML IVPB SCH ×6 (16:00→22:25)
[2017-10-14] VITALS: BP 117/74
[2017-10-14 04:00] VITALS: BP 136/84
[2017-10-14 05:44] LABS: BASOPHILS % (AUTO) 1.6 % (0.0-2.0); EOSINOPHILS % (AUTO) 0.8 % (0.0-3.0); LYMPHOCYTES % (AUTO) 43.7 % (20.0-45.0); MEAN CORPUSCULAR HEMOGLOBIN 31.8 PG (27.0-31.0); MEAN CORPUSCULAR HGB CONC 34.3 G/DL (32.0-36.0); MEAN CORPUSCULAR VOLUME 93 FL (80-99); MEAN PLATELET VOLUME 6.2 FL (6.5-10.1); MONOCYTES % (AUTO) 7.9 % (1.0-10.0); PLATELET COUNT 212 K/UL (150-450); RED BLOOD COUNT 4.27 M/UL (4.70-6.10); RED CELL DISTRIBUTION WIDTH 10.7 % (11.6-14.8); WHITE BLOOD COUNT 4.8 K/UL (4.8-10.8)
[2017-10-14 06:08] LABS: ANION GAP 6 mmol/L (5-15); CALCIUM 8.6 MG/DL (8.5-10.1); CARBON DIOXIDE 29 MMOL/L (21-32); CHLORIDE 102 MMOL/L (98-107); GLOMERULAR FILTRATION RATE > 60 mL/min (>60); POTASSIUM 4.1 MMOL/L (3.5-5.1); SODIUM 137 MMOL/L (136-145)
[2017-10-14] MEDS: NovoLOG Insulin Flexpen SUBQ SCH ×4 (06:12→11:59)
[2017-10-14 07:11] LABS: ALANINE AMINOTRANSFERASE 27 U/L (12-78); AMYLASE 65 U/L (25-115); ANION GAP 9 mmol/L (5-15); ASPARTATE AMINO TRANSFERASE 26 U/L (15-37); CALCIUM 8.9 MG/DL (8.5-10.1); CARBON DIOXIDE 26 MMOL/L (21-32); CHLORIDE 103 MMOL/L (98-107); GLOMERULAR FILTRATION RATE > 60 mL/min (>60); LIPASE 56 U/L (73-393); MAGNESIUM 1.7 MG/DL (1.8-2.4); PHOSPHORUS 2.4 MG/DL (2.5-4.9); POTASSIUM 4.1 MMOL/L (3.5-5.1); SODIUM 138 MMOL/L (136-145)
--- NOTE | 2017-10-14 07:22 | General Progress Note ---
Assessment/Plan Problem List: (1) Dehydration, severe ICD Codes: E86.0 - Dehydration SNOMED: 477974826 (2) Type 1 diabetes mellitus ICD Codes: E10.9 - Type 1 diabetes mellitus without complications SNOMED: 12094360 (3) DKA, type 1 ICD Codes: E10.10 - Type 1 diabetes mellitus with ketoacidosis without coma SNOMED: 92473953, 228460025 Qualifiers: Qualified Codes: E10.10 - Type 1 diabetes mellitus with ketoacidosis without coma (4) Leukocytosis ICD Codes: D72.829 - Elevated white blood cell count, unspecified SNOMED: 169864917, 464076661 (5) SHAJI (acute kidney injury) ICD Codes: N17.9 - Acute kidney failure, unspecified SNOMED: 35156817 Status: stable, progressing, tolerating diet Assessment/Plan bs control endo f/u cbc bmp am dc if clear Subjective Constitutional: Reports: weakness Allergies: Coded Allergies: No Known Allergies (Unverified , 08/01/17) All Systems: reviewed and negative except above Subjective calm in bed eating Objective Last 24 Hour Vital Signs Date Time Temp Pulse Resp B/P (MAP) Pulse Ox O2 Delivery O2 Flow Rate FiO2 10/14/17 04:00 98.6 69 21 136/84 98 Room Air 10/14/17 00:00 98.2 67 21 117/74 100 Room Air 10/13/17 22:55 98.3 10/13/17 20:00 98.3 78 21 116/67 100 Room Air 10/13/17 19:00 83 16 122/72 100 Room Air 10/13/17 19:00 74 18 Room Air 21 10/13/17 18:00 92 17 123/76 100 Room Air 10/13/17 17:00 69 17 130/83 100 Room Air 10/13/17 16:00 97.8 62 17 120/71 100 Room Air 10/13/17 16:00 69 10/13/17 15:00 81 16 109/69 100 Room Air 10/13/17 14:00 68 16 89/74 99 Room Air 10/13/17 13:00 87 16 124/66 100 Room Air 10/13/17 12:00 62 10/13/17 12:00 97.6 62 18 111/65 100 Room Air 10/13/17 11:00 72 19 104/50 100 Room Air 10/13/17 10:00 62 17 99/54 100 Room Air 10/13/17 09:00 72 20 114/64 100 Room Air 10/13/17 08:00 86 10/13/17 08:00 97.4 68 16 115/62 100 Room Air Laboratory Tests 10/14/17 05:15: White Blood Count 4.8, Red Blood Count 4.27L, Hemoglobin 13.6L, Hematocrit 39.5L , Mean Corpuscular Volume 93, Mean Corpuscular Hemoglobin 31.8H, Mean Corpuscular Hemoglobin Concent 34.3, Red Cell Distribution Width 10.7L, Platelet Count 212, Mean Platelet Volume 6.2L, Neutrophils (%) (Auto) 46.0, Lymphocytes (%) (Auto) 43.7, Monocytes (%) (Auto) 7.9, Eosinophils (%) (Auto) 0.8, Basophils (%) (Auto) 1.6, Erythrocyte Sedimentation Rate [Pending], Sodium Level 137, Potassium Level 4.1, Chloride Level 102, Carbon Dioxide Level 29, Anion Gap 6, Blood Urea Nitrogen 9, Creatinine 1.0, Estimat Glomerular Filtration Rate > 60, Glucose Level 381#H, Calcium Level 8.6, Phosphorus Level [ Pending], Magnesium Level [Pending], Total Bilirubin [Pending], Aspartate Amino Transf (AST/SGOT) [Pending], Alanine Aminotransferase (ALT/SGPT) [Pending], Alkaline Phosphatase [Pending], C-Reactive Protein, Quantitative [Pending], Total Protein [Pending], Albumin [Pending], Globulin [Pending], Amylase Level [ Pending], Lipase [Pending] Height (Feet): 5 Height (Inches): 10.00 Weight (Pounds): 150 General Appearance: alert EENT: normal ENT inspection Neck: normal alignment Cardiovascular: normal peripheral pulses, normal rate, regular rhythm Respiratory/Chest: chest wall non-tender, lungs clear, normal breath sounds Abdomen: normal bowel sounds, non tender, soft Extremities: normal inspection Edema: no edema noted Arm (L), no edema noted Arm (R), no edema noted Leg (L), no edema noted Leg (R), no edema noted Pedal (L), no edema noted Pedal (R), no edema noted Generalized Neurologic: responsive, motor weakness Skin: normal pigmentation, warm/dry SIGIFREDO ABREU Oct 14, 2017 07:22
[2017-10-14 07:33] LABS: CRP QUANT < 0.4 mg/dL (0.00-0.90)
[2017-10-14] MEDS: Phospha 250 Neutral tab ORAL SCH (08:05)
[2017-10-14] MEDS: Morphine Sulfate 4mg/ml Inj IVP PRN (08:06)
[2017-10-14] MEDS: Levemir Flexpen SUBQ SCH (08:08)
[2017-10-14] MEDS: Heparin 5000 units/ml inj SUBQ SCH (08:11)
[2017-10-14 08:15] VITALS: BP 115/76
[2017-10-14 09:02] LABS: ERYTHROCYTE SEDIMENTATION RATE 8 MM/HR (0-15)
--- NOTE | 2017-10-14 10:10 | Infectious Diseases Prog Note ---
Assessment/Plan Assessment/Plan antibiotics : none A 1. leucocytosis resolved 2. DKA resolved 3. DM 4. hypokalemia resolved P 1. continue off antibiotics Subjective Constitutional: Denies: fever, chills Respiratory: Denies: shortness of breath, dry cough Gastrointestinal/Abdominal: Denies: nausea, vomiting, diarrhea Musculoskeletal: Denies: pain Allergies: Coded Allergies: No Known Allergies (Unverified , 08/01/17) Objective Vital Signs Last 24 Hour Vital Signs Date Time Temp Pulse Resp B/P (MAP) Pulse Ox O2 Delivery O2 Flow Rate FiO2 10/14/17 08:15 97.9 86 19 115/76 98 Room Air 10/14/17 04:00 98.6 69 21 136/84 98 Room Air 10/14/17 00:00 98.2 67 21 117/74 100 Room Air 10/13/17 22:55 98.3 10/13/17 20:00 98.3 78 21 116/67 100 Room Air 10/13/17 19:00 83 16 122/72 100 Room Air 10/13/17 19:00 74 18 Room Air 21 10/13/17 18:00 92 17 123/76 100 Room Air 10/13/17 17:00 69 17 130/83 100 Room Air 10/13/17 16:00 97.8 62 17 120/71 100 Room Air 10/13/17 16:00 69 10/13/17 15:00 81 16 109/69 100 Room Air 10/13/17 14:00 68 16 89/74 99 Room Air 10/13/17 13:00 87 16 124/66 100 Room Air 10/13/17 12:00 62 10/13/17 12:00 97.6 62 18 111/65 100 Room Air 10/13/17 11:00 72 19 104/50 100 Room Air Height (Feet): 5 Height (Inches): 10.00 Weight (Pounds): 150 Cardiovascular: normal rate, regular rhythm, no gallop/murmur Abdomen: soft, non tender Extremities: no edema Laboratory Tests Test 10/14/17 05:15 White Blood Count 4.8 K/UL (4.8-10.8) Red Blood Count 4.27 M/UL (4.70-6.10) L Hemoglobin 13.6 G/DL (14.2-18.0) L Hematocrit 39.5 % (42.0-52.0) L Mean Corpuscular Volume 93 FL (80-99) Mean Corpuscular Hemoglobin 31.8 PG (27.0-31.0) H Mean Corpuscular Hemoglobin Concent 34.3 G/DL (32.0-36.0) Red Cell Distribution Width 10.7 % (11.6-14.8) L Platelet Count 212 K/UL (150-450) Mean Platelet Volume 6.2 FL (6.5-10.1) L Neutrophils (%) (Auto) 46.0 % (45.0-75.0) Lymphocytes (%) (Auto) 43.7 % (20.0-45.0) Monocytes (%) (Auto) 7.9 % (1.0-10.0) Eosinophils (%) (Auto) 0.8 % (0.0-3.0) Basophils (%) (Auto) 1.6 % (0.0-2.0) Erythrocyte Sedimentation Rate 8 MM/HR (0-15) Sodium Level 137 MMOL/L (136-145) Potassium Level 4.1 MMOL/L (3.5-5.1) Chloride Level 102 MMOL/L (98-107) Carbon Dioxide Level 29 MMOL/L (21-32) Anion Gap 6 mmol/L (5-15) Blood Urea Nitrogen 9 mg/dL (7-18) Creatinine 1.0 MG/DL (0.55-1.30) Estimat Glomerular Filtration Rate > 60 mL/min (>60) Glucose Level 381 MG/DL (74-106) #H Calcium Level 8.6 MG/DL (8.5-10.1) Phosphorus Level 2.4 MG/DL (2.5-4.9) L Magnesium Level 1.7 MG/DL (1.8-2.4) L Total Bilirubin 0.4 MG/DL (0.2-1.0) Aspartate Amino Transf (AST/SGOT) 26 U/L (15-37) Alanine Aminotransferase (ALT/SGPT) 27 U/L (12-78) Alkaline Phosphatase 102 U/L (46-116) C-Reactive Protein, Quantitative < 0.4 mg/dL (0.00-0.90) Total Protein 6.0 G/DL (6.4-8.2) L Albumin 3.0 G/DL (3.4-5.0) L Globulin 3.0 g/dL Albumin/Globulin Ratio 1.0 (1.0-2.7) Amylase Level 65 U/L (25-115) Lipase 56 U/L (73-393) L DAWN ZIMMERMAN Oct 14, 2017 10:10
--- NOTE | 2017-10-14 11:08 | Nephrology Progress Note ---
Assessment/Plan Problem List: (1) SHAJI (acute kidney injury) (2) Dehydration, severe (3) DKA, type 1 (4) Drug abuse Assessment DKA- resolved severe dehydration - resolved ARF 2 to dehydration - resolved DM type 1 Leukocytosis, likely reactive r/o infection Hx of amphetamine abuse Noncompliance Plan out of ICU Insulin gtt as per protocol, until anion gap closed then will change to long and short acting regimen correct low Phos and K and Mag down on IVF hydration , monitor renal parameters lytes , correct as needed avoid nephrotoxic Subjective ROS Limited/Unobtainable: No Constitutional: Reports: malaise, weakness Objective Objective Last 24 Hour Vital Signs Date Time Temp Pulse Resp B/P (MAP) Pulse Ox O2 Delivery O2 Flow Rate FiO2 10/14/17 08:15 97.9 86 19 115/76 98 Room Air 10/14/17 04:00 98.6 69 21 136/84 98 Room Air 10/14/17 00:00 98.2 67 21 117/74 100 Room Air 10/13/17 22:55 98.3 10/13/17 20:00 98.3 78 21 116/67 100 Room Air 10/13/17 19:00 83 16 122/72 100 Room Air 10/13/17 19:00 74 18 Room Air 21 10/13/17 18:00 92 17 123/76 100 Room Air 10/13/17 17:00 69 17 130/83 100 Room Air 10/13/17 16:00 97.8 62 17 120/71 100 Room Air 10/13/17 16:00 69 10/13/17 15:00 81 16 109/69 100 Room Air 10/13/17 14:00 68 16 89/74 99 Room Air 10/13/17 13:00 87 16 124/66 100 Room Air 10/13/17 12:00 62 10/13/17 12:00 97.6 62 18 111/65 100 Room Air Intake and Output 10/14/17 10/15/17 19:00 07:00 Intake Total 240 ml Balance 240 ml Intake Oral 240 ml Laboratory Tests 10/14/17 05:15: White Blood Count 4.8, Red Blood Count 4.27L, Hemoglobin 13.6L, Hematocrit 39.5L , Mean Corpuscular Volume 93, Mean Corpuscular Hemoglobin 31.8H, Mean Corpuscular Hemoglobin Concent 34.3, Red Cell Distribution Width 10.7L, Platelet Count 212, Mean Platelet Volume 6.2L, Neutrophils (%) (Auto) 46.0, Lymphocytes (%) (Auto) 43.7, Monocytes (%) (Auto) 7.9, Eosinophils (%) (Auto) 0.8, Basophils (%) (Auto) 1.6, Erythrocyte Sedimentation Rate 8, Sodium Level 137, Potassium Level 4.1, Chloride Level 102, Carbon Dioxide Level 29, Anion Gap 6, Blood Urea Nitrogen 9, Creatinine 1.0, Estimat Glomerular Filtration Rate > 60, Glucose Level 381#H, Calcium Level 8.6, Phosphorus Level 2.4L, Magnesium Level 1.7L, Total Bilirubin 0.4, Aspartate Amino Transf (AST/SGOT) 26 , Alanine Aminotransferase (ALT/SGPT) 27, Alkaline Phosphatase 102, C-Reactive Protein, Quantitative < 0.4, Total Protein 6.0L, Albumin 3.0L, Globulin 3.0, Albumin/Globulin Ratio 1.0, Amylase Level 65, Lipase 56L Height (Feet): 5 Height (Inches): 10.00 Weight (Pounds): 150 General Appearance: no apparent distress Objective PE no change NAPOLEON KAUFMAN Oct 14, 2017 11:08
[2017-10-14 12:18] VITALS: BP 118/81
[2017-10-14] MEDS ORDERED: Phospha 250 Neutral tab ORAL SCH (13:00)
--- NOTE | 2017-10-14 16:22 | Pulmonology Progress Note ---
Assessment/Plan Problems: (1) DKA, type 1 (2) Leukocytosis Assessment/Plan improving BS controlled dc home Subjective ROS Limited/Unobtainable: No Constitutional: Reports: no symptoms HEENT: Repors: no symptoms Respiratory: Reports: no symptoms Allergies: Coded Allergies: No Known Allergies (Unverified , 08/01/17) Objective Last 24 Hour Vital Signs Date Time Temp Pulse Resp B/P (MAP) Pulse Ox O2 Delivery O2 Flow Rate FiO2 10/14/17 12:18 97.7 70 21 118/81 96 Room Air 10/14/17 08:15 97.9 86 19 115/76 98 Room Air 10/14/17 04:00 98.6 69 21 136/84 98 Room Air 10/14/17 00:00 98.2 67 21 117/74 100 Room Air 10/13/17 22:55 98.3 10/13/17 20:00 98.3 78 21 116/67 100 Room Air 10/13/17 19:00 83 16 122/72 100 Room Air 10/13/17 19:00 74 18 Room Air 21 10/13/17 18:00 92 17 123/76 100 Room Air 10/13/17 17:00 69 17 130/83 100 Room Air Intake and Output 10/14/17 10/15/17 19:00 07:00 Intake Total 720 ml Balance 720 ml Intake Oral 720 ml General Appearance: WD/WN HEENT: normocephalic, atraumatic Respiratory/Chest: chest wall non-tender, lungs clear Cardiovascular: normal peripheral pulses, normal rate, regular rhythm Abdomen: normal bowel sounds, soft, non tender Genitourinary: normal external genitalia Skin: no rash, no ulcers Laboratory Tests 10/14/17 05:15: White Blood Count 4.8, Red Blood Count 4.27L, Hemoglobin 13.6L, Hematocrit 39.5L , Mean Corpuscular Volume 93, Mean Corpuscular Hemoglobin 31.8H, Mean Corpuscular Hemoglobin Concent 34.3, Red Cell Distribution Width 10.7L, Platelet Count 212, Mean Platelet Volume 6.2L, Neutrophils (%) (Auto) 46.0, Lymphocytes (%) (Auto) 43.7, Monocytes (%) (Auto) 7.9, Eosinophils (%) (Auto) 0.8, Basophils (%) (Auto) 1.6, Erythrocyte Sedimentation Rate 8, Sodium Level 137, Potassium Level 4.1, Chloride Level 102, Carbon Dioxide Level 29, Anion Gap 6, Blood Urea Nitrogen 9, Creatinine 1.0, Estimat Glomerular Filtration Rate > 60, Glucose Level 381#H, Calcium Level 8.6, Phosphorus Level 2.4L, Magnesium Level 1.7L, Total Bilirubin 0.4, Aspartate Amino Transf (AST/SGOT) 26 , Alanine Aminotransferase (ALT/SGPT) 27, Alkaline Phosphatase 102, C-Reactive Protein, Quantitative < 0.4, Total Protein 6.0L, Albumin 3.0L, Globulin 3.0, Albumin/Globulin Ratio 1.0, Amylase Level 65, Lipase 56L VALERY OG Oct 14, 2017 16:22
--- NOTE | 2017-10-15 18:25 | Discharge Summary ---
Discharge Summary Hospital Course Date of Admission Oct 12, 2017 at 01:55 Date of Discharge Oct 14, 2017 at 13:00 Admitting Diagnosis Diabetic Keto-Acidosis HPI Sylvester Lal is a 22 year old male who was admitted on Oct 12, 2017 at 01: 55 for Diabetic Keto-Acidosis Hospital Course [id number] Discharge Discharge Disposition Patient was discharged to Home () Discharge Diagnoses: Kay Nelson NP Oct 15, 2017 18:25
--- NOTE | 2017-10-16 14:15 | Discharge Summary 2 SIG ---
DATE OF ADMISSION: 10/12/2017 DATE OF DISCHARGE: 10/14/2017 CONSULTANTS: 1. Rachid Ahmadi M.D. 2. Angie Dunn M.D. 3. Ar Chaidez M.D. 4. Christiano Townsend M.D. BRIEF HOSPITAL COURSE: The patient is a 22-year-old male with history of insulin-dependent diabetes mellitus, apparently started feeling weak with nausea and vomiting presented to ED. 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 On evaluation at ED, WBC was elevated to 22. Glucose was 1058. He was immediately started on IV hydration and was given insulin drip. He was admitted to ICU. He had elevated renal function to 2.7. BUN was 43. He had severe dehydration. He has acute kidney injury due to dehydration. He was continued on IV hydration. Blood sugars were monitored. Hemoglobin A1c was 10. He was observed off antibiotic treatment. Leukocytosis probably secondary to systemic inflammatory response syndrome. Chest x-ray done was negative. Blood sugar improved. Insulin drip was discontinued. He was started on Levemir and NovoLog regimen. He was started on diet and has been tolerating diet well. Anion gap closed. Urine toxicology done was negative. Leukocytosis eventually resolved. He was eventually cleared for discharge. FINAL DIAGNOSES: 1. Acute diabetic ketoacidosis, type 1. 2. Leukocytosis probably secondary to systemic inflammatory response syndrome. 3. Acute renal failure secondary to dehydration, resolved. 4. Severe dehydration, resolved. 5. History of amphetamine abuse. 6. Noncompliance with medication. DISPOSITION: The patient was discharged home. DISCHARGE MEDICATIONS: Refer to med list. Continue with Lantus 35 units subcutaneous nightly and Humalog 20 units subcutaneous with before meals. Clyde Correa D.O. I have been assigned to dictate discharge summary on this account and I was not involved in the patient's management. Kaymarion Nelson N.P. DR: JUDY JOB#: [id number] CC: [email or web address]
== END 2017-10-14 13:00 | disposition home or self-care (01) | DRG 638 ==
LOC: EDBD 00:41 → EMR 00:54 → ICU 01:55 → EDBEDREQ 03:42 → ENRESERV 07:30 → 4E 10-13 20:03
DX: E10.10 Type 1 diabetes mellitus with ketoacidosis without coma (principal); N17.9 Acute kidney failure, unspecified; R65.10 Systemic inflammatory response syndrome (SIRS) of non-infectious origin without acute organ dysfunction; Z72.0 Tobacco use; D72.829 Elevated white blood cell count, unspecified; Z91.14 Patient's other noncompliance with medication regimen; E87.6 Hypokalemia; E86.0 Dehydration; R00.0 Tachycardia, unspecified; F15.10 Other stimulant abuse, uncomplicated; Z86.19 Personal history of other infectious and parasitic diseases; Z79.4 Long term (current) use of insulin
CPT/HCPCS: 36415; 36600; 71010; 80048; 80053; 80061; 80076; 80307; 81003; 82150; 82550; 82803; 82962; 82977; 83036; 83690; 83735; 84100; 84550; 85007; 85025; 85610; 85651; 85730; 86140; 93005; 94664; 99291; C9399; J1815; J2405; S5561

== ENCOUNTER 2017-10-24 02:14 | Inpatient (IN) | payer OTHER, MEDICAID ==
[~2017-10-24] VITALS: Ht 177.8 cm; Wt 71.7 kg
[2017-10-24] VITALS (24 sets, daily range): BP systolic 97–137; BP diastolic 42–92
[~2017-10-24 02:14] MED LIST changes: +QUETIAPINE FUM200 MG ORAL
[2017-10-24] MEDS ORDERED: LR 1000ml 1,000 ML IV SCH ×3 (02:15)
--- NOTE | 2017-10-24 02:20 | Emergency Room Report ---
History of Present Illness General Chief Complaint: Abdominal Pain Source: Patient, EMS Present Illness HPI Is a 22-year-old male known to me. He has a history of diabetes type 1 with frequent DKA. He was admitted here last week. Patient presents with chief complaint of hyperglycemia and abdominal pain with vomiting. He took his insulin 3 times a day already. Sugar still high. He currently resides in a sober living secondary to drug abuse. Complaining of vomiting and abdominal pain. Pain is 10 out of 10. No diarrhea. No fever or chills. Allergies: Coded Allergies: No Known Allergies (Unverified , 08/01/17) Patient History Past Medical History: see triage record, old chart reviewed, DM Past Surgical History: other Pertinent Family History: none Social History: Denies: smoking Immunizations: other Reviewed Nursing Documentation: PMH: Agreed, PSxH: Agreed Nursing Documentation-PMH Hx Cardiac Problems: No Hx Diabetes: Yes Hx Cancer: No Hx Gastrointestinal Problems: No Hx Neurological Problems: No Hx Peripheral Neuropathy: Yes Review of Systems Constitutional: Reports: weakness Eye: Denies: eye pain, blurred vision ENT: Denies: ear pain, nose congestion, throat swelling Respiratory: Denies: cough, shortness of breath Cardiovascular: Denies: chest pain, palpitations Gastrointestinal: Reports: abdominal pain, nausea, vomiting, Denies: diarrhea Musculoskeletal: Denies: back pain, joint pain Skin: Denies: rash Neurological: Denies: headache, numbness Endocrine: Denies: increased thirst, increased urine Hematologic/Lymphatic: Denies: easy bruising All Other Systems: negative except mentioned in HPI Physical Exam Vital Signs Date Time Temp Pulse Resp B/P (MAP) Pulse Ox O2 Delivery O2 Flow Rate FiO2 10/24/17 02:09 97.5 141 18 137/92 99 Room Air vitals with tachycardia Sp02 EP Interpretation: reviewed, normal General Appearance: alert, thin Head: normocephalic, atraumatic Eyes: bilateral eye PERRL, bilateral eye EOMI ENT: hearing grossly normal, normal pharynx Neck: full range of motion, supple, no meningismus Respiratory: chest non-tender, lungs clear, normal breath sounds Cardiovascular #1: regular rate, rhythm, no murmur Gastrointestinal: normal bowel sounds, no mass, no organomegaly, no bruit, non- distended, tenderness - That his Musculoskeletal: back normal, normal range of motion Neurologic: normal inspection, alert, oriented x3 Psychiatric: mood/affect normal Skin: warm/dry Procedures Critical Care Time Critical Care Time Critical care is mandated in this patient who presented with DKA. Patient require my urgent intervention to attenuate the risks of metabolic collapse which may lead to cardiovascular collapse and . Critical care time is 75 minutes excluding any reportable procedure. Critical care time included evaluation, multiple reevaluation, looking at old charts, interpreting laboratory and diagnostic data, discussing case with patient and family and consultants, and charting. Medical Decision Making Diagnostic Impression: Primary Impression: DKA, type 1 Qualified Codes: E10.10 - Type 1 diabetes mellitus with ketoacidosis without coma Additional Impression: Dehydration ER Course Patient presents with DKA. No obvious source of infection. Patient started on insulin drip. Usually he will close his gap very quickly. Will admit to ICU for now. Laboratory Tests Test 10/24/17 02:50 10/24/17 03:22 White Blood Count 18.6 K/UL (4.8-10.8) H Red Blood Count 4.91 M/UL (4.70-6.10) Hemoglobin 15.2 G/DL (14.2-18.0) Hematocrit 49.6 % (42.0-52.0) Mean Corpuscular Volume 101 FL (80-99) H Mean Corpuscular Hemoglobin 30.9 PG (27.0-31.0) Mean Corpuscular Hemoglobin Concent 30.5 G/DL (32.0-36.0) L Red Cell Distribution Width 12.4 % (11.6-14.8) Platelet Count 583 K/UL (150-450) H Mean Platelet Volume 5.5 FL (6.5-10.1) L Neutrophils (%) (Auto) % (45.0-75.0) Lymphocytes (%) (Auto) % (20.0-45.0) Monocytes (%) (Auto) % (1.0-10.0) Eosinophils (%) (Auto) % (0.0-3.0) Basophils (%) (Auto) % (0.0-2.0) Sodium Level 127 MMOL/L (136-145) L Potassium Level 5.9 MMOL/L (3.5-5.1) H Chloride Level 83 MMOL/L (98-107) L Carbon Dioxide Level 6 MMOL/L (21-32) *L Anion Gap 38 mmol/L (5-15) H Blood Urea Nitrogen 41 mg/dL (7-18) H Creatinine 2.8 MG/DL (0.55-1.30) H Estimat Glomerular Filtration Rate 28.5 mL/min (>60) Glucose Level 972 MG/DL (74-106) *H Calcium Level 9.2 MG/DL (8.5-10.1) Magnesium Level 2.5 MG/DL (1.8-2.4) H Total Bilirubin 0.6 MG/DL (0.2-1.0) Aspartate Amino Transf (AST/SGOT) 21 U/L (15-37) Alanine Aminotransferase (ALT/SGPT) 37 U/L (12-78) Alkaline Phosphatase 144 U/L (46-116) H Total Protein 8.1 G/DL (6.4-8.2) Albumin 4.5 G/DL (3.4-5.0) Globulin 3.6 g/dL Albumin/Globulin Ratio 1.2 (1.0-2.7) Acetone Level Positive-large (NEGATIVE) Urine Color Pending Urine Appearance Pending Urine pH Pending Urine Specific [place] Pending Urine Protein Pending Urine Glucose (UA) Pending Urine Ketones Pending Urine Occult Blood Pending Urine Nitrite Pending Urine Bilirubin Pending Urine Urobilinogen Pending Urine Leukocyte Esterase Pending Urine Opiates Screen Pending Urine Barbiturates Screen Pending Phencyclidine (PCP) Screen Pending Urine Amphetamines Screen Pending Urine Benzodiazepines Screen Pending Urine Cocaine Screen Pending Urine Marijuana (THC) Screen Pending Lab Results Impression labs with DKA EKG Diagnostic Results Rate: tachycardiac Rhythm: NSR ST Segments: no acute changes Rhythm Strip Diag. Results Rhythm Strip Time: 04:02 EP Interpretation: yes Rate: 130 Rhythm: NSR, no PVC's, no ectopy Last Vital Signs Date Time Temp Pulse Resp B/P (MAP) Pulse Ox O2 Delivery O2 Flow Rate FiO2 10/24/17 02:09 97.5 141 18 137/92 99 Room Air Status: improved Disposition: ADMITTED INPATIENT Condition: Critical IGNACIO YOO M.D. Oct 24, 2017 02:20
[2017-10-24 03:03] LABS: MEAN CORPUSCULAR HEMOGLOBIN 30.9 PG (27.0-31.0); MEAN CORPUSCULAR HGB CONC 30.5 G/DL (32.0-36.0); MEAN CORPUSCULAR VOLUME 101 FL (80-99); MEAN PLATELET VOLUME 5.5 FL (6.5-10.1); PLATELET COUNT 583 K/UL (150-450); RED BLOOD COUNT 4.91 M/UL (4.70-6.10); RED CELL DISTRIBUTION WIDTH 12.4 % (11.6-14.8); WHITE BLOOD COUNT 18.6 K/UL (4.8-10.8)
[2017-10-24 03:27] LABS: ALANINE AMINOTRANSFERASE 37 U/L (12-78); ALBUMIN/GLOBULIN RATIO 1.2 (1.0-2.7); ANION GAP 38 mmol/L (5-15); ASPARTATE AMINO TRANSFERASE 21 U/L (15-37); CALCIUM 9.2 MG/DL (8.5-10.1); CHLORIDE 83 MMOL/L (98-107); CREATININE 2.8 MG/DL (0.55-1.30); GLOMERULAR FILTRATION RATE 28.5 mL/min (>60); MAGNESIUM 2.5 MG/DL (1.8-2.4); POTASSIUM 5.9 MMOL/L (3.5-5.1); SODIUM 127 MMOL/L (136-145); TOTAL PROTEIN 8.1 G/DL (6.4-8.2)
[2017-10-24 03:30] LABS: CARBON DIOXIDE 6 MMOL/L (21-32)
[2017-10-24 03:41] LABS: APPEARANCE,URINE CLEAR; KETONES,URINE 4+ (NEGATIVE); LEUKOCYTE ESTERASE ,URINE NEGATIVE (NEGATIVE); NITRITE,URINE NEGATIVE (NEGATIVE); PH,URINE 5 (4.5-8.0); PROTEIN,URINE 2+ (NEGATIVE); UROBILINOGEN,URINE NORMAL MG/DL (0.0-1.0)
[2017-10-24 04:06] LABS: BACTERIA,URINE FEW /HPF; RBC,URINE 0-2 /HPF (0 - 0); WBC,URINE 0 /HPF (0 - 0)
[2017-10-24 05:32] LABS: ANION GAP 32 mmol/L (5-15); CALCIUM 7.6 MG/DL (8.5-10.1); CHLORIDE 98 MMOL/L (98-107); POTASSIUM 4.6 MMOL/L (3.5-5.1); SODIUM 136 MMOL/L (136-145)
[2017-10-24 05:35] LABS: CARBON DIOXIDE < 5 MMOL/L (21-32)
[2017-10-24 05:54] LABS: ABG PCO2 14.8 mmHg (35.0-45.0)
[2017-10-24 05:55] LABS: ABG ALLEN TEST POSITIVE; ABG BASE EXCESS -21.1
[2017-10-24] MEDS ORDERED: Potassium Chloride 10 MEQ in NS 110 ML IVPB SCH (06:00)
[2017-10-24] MEDS ORDERED: Nitroglycerin Subl 0.4mg tab SL PRN (08:00)
[2017-10-24] MEDS ORDERED: LORazepam Inj 2mg/ml 1ml IV PRN (08:00)
[2017-10-24] MEDS ORDERED: Miralax 17gm pkt ORAL PRN (08:00)
[2017-10-24] MEDS ORDERED: Albuterol/Ipratropium 3ml neb HHN PRN (08:00)
[2017-10-24] MEDS: Heparin 5000 units/ml inj SUBQ SCH ×2 (09:41→20:34)
[2017-10-24] MEDS: Insulin Rate Change 1 Each MISC PRN ×8 (10:56→22:58)
[2017-10-24] MEDS ORDERED: Ipratropium 0.02% Inh Soln 2.5ml UD HHN PRN (12:15)
[2017-10-24] MEDS ORDERED: Levalbuterol Inh UD 1.25mg/0.5ml HHN PRN (12:15)
--- NOTE | 2017-10-24 12:44 | Pulmonolgy Critical Care Note ---
Critical Care - Asmt/Plan Problems: (1) SHAJI (acute kidney injury) (2) Drug abuse Respiratory: monitor respiratory rate, adjust FIO2 Cardiac: continue to monitor HR/BP Renal: F/U I&O, keep IV fluid Infectious Disease: check cultures Gastrointestinal: continue feedings/current rate Endocrine: monitor blood sugar, check TSH Hematologic: monitor H/H Neurologic: PRN Ativan Affect: PRN ativan Prophylaxis: Protonix Notes Reviewed: [employer] internship, cardio Discussed with: nurses, consultants, hospice case managershopper marketing manager - Objective Last 24 Hour Vital Signs Date Time Temp Pulse Resp B/P (MAP) Pulse Ox O2 Delivery O2 Flow Rate FiO2 10/24/17 12:00 99 19 126/65 99 Room Air 10/24/17 11:00 101 18 126/55 100 Room Air 10/24/17 10:00 98 18 131/84 100 Room Air 10/24/17 09:00 89 21 111/50 100 Room Air 10/24/17 08:00 97.6 98 20 128/78 100 Room Air 10/24/17 08:00 95 10/24/17 07:25 105 18 117/68 99 Room Air 10/24/17 06:36 97.5 107 28 125/77 100 Room Air 10/24/17 04:30 131 21 128/48 100 Room Air 10/24/17 03:30 141 23 137/50 100 Room Air 10/24/17 02:30 97.5 141 18 137/92 99 Room Air 10/24/17 02:09 97.5 141 18 137/92 99 Room Air Status: awake Condition: critical HEENT: atraumatic Neck: full ROM Heart: HR/BP stable, HR/BP unstable Abdomen: soft, active bowel sounds Extremities: no C/C/E Decubiti: location Accucheck: 93 Critical Care - Subjective ROS Limited/Unobtainable: Yes ICU Day: 1 Interval Events: 22-year-old male with a history of diabetes type 1 with frequent DKA. He was admitted here last week. Patient presents with chief complaint of hyperglycemia and abdominal pain with vomiting. diagnosed to have DKA and admitted for further work up. I&O: Intake and Output 10/24/17 10/25/17 19:00 07:00 Intake Total 150.5 ml Output Total 400 ml Balance -249.5 ml Intake IV Total 150.5 ml Output Urine Total 400 ml # Voids 1 Labs: Laboratory Tests Test 10/24/17 02:50 10/24/17 03:22 10/24/17 05:02 10/24/17 05:40 White Blood Count 18.6 K/UL (4.8-10.8) H Red Blood Count 4.91 M/UL (4.70-6.10) Hemoglobin 15.2 G/DL (14.2-18.0) Hematocrit 49.6 % (42.0-52.0) Mean Corpuscular Volume 101 FL (80-99) H Mean Corpuscular Hemoglobin 30.9 PG (27.0-31.0) Mean Corpuscular Hemoglobin Concent 30.5 G/DL (32.0-36.0) L Red Cell Distribution Width 12.4 % (11.6-14.8) Platelet Count 583 K/UL (150-450) H Mean Platelet Volume 5.5 FL (6.5-10.1) L Neutrophils (%) (Auto) % (45.0-75.0) Lymphocytes (%) (Auto) % (20.0-45.0) Monocytes (%) (Auto) % (1.0-10.0) Eosinophils (%) (Auto) % (0.0-3.0) Basophils (%) (Auto) % (0.0-2.0) Sodium Level 127 MMOL/L (136-145) L 136 MMOL/L (136-145) Potassium Level 5.9 MMOL/L (3.5-5.1) H 4.6 MMOL/L (3.5-5.1) Chloride Level 83 MMOL/L (98-107) L 98 MMOL/L (98-107) Carbon Dioxide Level 6 MMOL/L (21-32) *L < 5 MMOL/L (21-32) *L Anion Gap 38 mmol/L (5-15) H 32 mmol/L (5-15) H Blood Urea Nitrogen 41 mg/dL (7-18) H 37 mg/dL (7-18) H Creatinine 2.8 MG/DL (0.55-1.30) H 2.0 MG/DL (0.55-1.30) H Estimat Glomerular Filtration Rate 28.5 mL/min (>60) 42.0 mL/min (>60) Glucose Level 972 MG/DL (74-106) *H 638 MG/DL (74-106) #*H Calcium Level 9.2 MG/DL (8.5-10.1) 7.6 MG/DL (8.5-10.1) L Magnesium Level 2.5 MG/DL (1.8-2.4) H Total Bilirubin 0.6 MG/DL (0.2-1.0) Aspartate Amino Transf (AST/SGOT) 21 U/L (15-37) Alanine Aminotransferase (ALT/SGPT) 37 U/L (12-78) Alkaline Phosphatase 144 U/L (46-116) H Total Protein 8.1 G/DL (6.4-8.2) Albumin 4.5 G/DL (3.4-5.0) Globulin 3.6 g/dL Albumin/Globulin Ratio 1.2 (1.0-2.7) Acetone Level Positive-large (NEGATIVE) Urine Color Pale yellow Urine Appearance Clear Urine pH 5 (4.5-8.0) Urine Specific [place] 1.020 (1.005-1.035) Urine Protein 2+ (NEGATIVE) H Urine Glucose (UA) 4+ (NEGATIVE) H Urine Ketones 4+ (NEGATIVE) H Urine Occult Blood Negative (NEGATIVE) Urine Nitrite Negative (NEGATIVE) Urine Bilirubin Negative (NEGATIVE) Urine Urobilinogen Normal MG/DL (0.0-1.0) Urine Leukocyte Esterase Negative (NEGATIVE) Urine RBC 0-2 /HPF (0 - 0) H Urine WBC 0 /HPF (0 - 0) Urine Squamous Epithelial Cells None /LPF (NONE/OCC) Urine Bacteria Few /HPF (NONE) Urine Opiates Screen Negative (NEGATIVE) Urine Barbiturates Screen Negative (NEGATIVE) Phencyclidine (PCP) Screen Negative (NEGATIVE) Urine Amphetamines Screen Negative (NEGATIVE) Urine Benzodiazepines Screen Negative (NEGATIVE) Urine Cocaine Screen Negative (NEGATIVE) Urine Marijuana (THC) Screen Negative (NEGATIVE) Arterial Blood pH 7.163 (7.350-7.450) Arterial Blood Partial Pressure CO2 14.8 mmHg (35.0-45.0) *L Arterial Blood Partial Pressure O2 127.9 mmHg (75.0-100.0) H Arterial Blood HCO3 5.2 mmol/L (22.0-26.0) L Arterial Blood Oxygen Saturation 97.5 % (92.0-98.0) Arterial Blood Base Excess -21.1 Juan Test Positive VALERY OG Oct 24, 2017 12:44
--- NOTE | 2017-10-24 19:30 | History and Physical Report ---
DATE OF ADMISSION: 10/24/2017 TIME: 1 p.m. CONSULTANTS: 1. Angie Dunn M.D. 2. Rachid Ahmadi M.D. CHIEF COMPLAINT: Nausea, vomiting and diabetic ketoacidosis. BRIEF HISTORY: The patient is a 22-year-old male with history of diabetes type 1, one month ago had diabetic ketoacidosis hospitalized at [facility], went home, was doing okay and became nauseous and vomiting for about two days, became very weak, sent to [facility] ER again, diagnosed with diabetic ketoacidosis, admitted to intensive care unit for further care. Currently, weak, lethargic in bed, slightly nauseous and vomiting. No complaint. PAST MEDICAL HISTORY: IDDM. PAST SURGICAL HISTORY: None. MEDICATIONS: Insulin, Xopenex, Atrovent, heparin, Novolin, Zofran, MiraLAX, Tylenol, morphine, nitroglycerin and albuterol. ALLERGIES: Denies. SOCIAL HISTORY: Positive smoking. No alcohol. No intravenous drug abuse. FAMILY HISTORY: Noncontributory. REVIEW OF SYSTEMS: No chest pain. Slight short of breath. Slight nausea and vomiting. No diarrhea. PHYSICAL EXAMINATION: GENERAL: Calm in bed, oriented x3, slightly weak secondary to nausea and vomiting. VITAL SIGNS: Temperature is 97 degrees, pulse 99, , and blood pressure 126/65. CARDIOVASCULAR: No murmur. LUNGS: Distant and Clear. ABDOMEN: Bowel sounds are positive. Nontender and nondistended. EXTREMITIES: No cyanosis, clubbing, or edema. NEUROLOGIC: The patient moves all extremities, but slightly weak. LABORATORY AND DIAGNOSTIC DATA: White count 18 and platelets 583, otherwise CBC is normal. BMP showed initial sodium 127, since then has been corrected, bicarbonate still less than 5, glucose 972, right now. Urinalysis show 4+ glucose, 4+ ketone 2+ protein. Urine toxicology is positive acetone. ASSESSMENT: 1. Diabetic ketoacidosis. 2. Nausea and vomiting. 3. History of diabetes type 1. 4. Acute kidney injury. PLAN: 1. Continue premedications. 2. Blood sugar control. 3. NPO. 4. Intravenous fluids. 5. Zofran p.r.n. 6. Dr. Ahmadi and Dr. Dunn to consult. 7. CBC and BMP in the morning. 8. We will continue to follow the patient. Thank you. Clyde Correa D.O. DR: KIA JOB#: [id number] CC:
[2017-10-24] MEDS: Morphine Sulfate 4mg/ml Inj IVP PRN (20:32)
--- NOTE | 2017-10-24 21:31 | Consultation ---
DATE OF CONSULTATION: 10/24/2017 ENDOCRINOLOGY CONSULTATION REFERRING PHYSICIAN: Clyde Correa D.O. REASON FOR CONSULTATION: Diabetic ketoacidosis. 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 The patient had a recent admission to [facility] on 10/12/2017 with diabetic ketoacidosis and again represented at this time with the same picture. The patient presented with hyperglycemia, abdominal pain, nausea, and vomiting. The patient was taking his insulin, but in spite of that blood sugar was very high. Upon admission, chemistry revealed sodium of 127, potassium of 5.9, chloride of 83, bicarbonate of 6, anion gap of 38, BUN of 41, creatinine of 2.8, and glucose of 972. He was admitted to the ICU for observation and treatment of diabetic ketoacidosis. PAST MEDICAL HISTORY: 1. Type 1 diabetes. 2. Episode of diabetic ketoacidosis in the past. 3. Hepatitis C. 4. Methamphetamine abuse. PAST SURGICAL HISTORY: None. MEDICATIONS: Reviewed and reconciled. SOCIAL HISTORY: Substance abuse. FAMILY HISTORY: Negative for diabetes. REVIEW OF SYSTEMS: As per history of present illness. PHYSICAL EXAMINATION: GENERAL: He is awake and alert. VITAL SIGNS: Blood pressure is 127/75, pulse of 73, respiratory rate of 19, and temperature of 98 degrees. HEENT: Pupils are equal and reactive to light. Sclerae are anicteric. NECK: No JVD. No thyromegaly. No bruit. LUNGS: Clear. HEART: Regular rate and rhythm. ABDOMEN: Positive bowel sounds. Soft. EXTREMITIES: No clubbing, cyanosis, or edema. LABORATORY DATA: Discussed in the history of present illness. DIAGNOSES: 1. Recurrence of diabetic ketoacidosis. 2. Type 1 diabetes. PLAN: 1. The patient needs to be treated with IV insulin. 2. Continue with IV hydration. 3. Monitor electrolytes and replete. 4. Once anion gap is closed , we will make the transition to subcutaneous insulin therapy and transfer the patient out of the ICU. Thank you, Dr. Corrae, for the courtesy of this consultation. Rachid Ahmadi M.D. DR: Myra JOB#: [id number] CC:
[2017-10-25] VITALS (29 sets, daily range): BP systolic 91–142; BP diastolic 32–87
[2017-10-25] MEDS: Insulin Rate Change 1 Each MISC PRN ×12 (01:00→17:25)
[2017-10-25 05:25] LABS: BASOPHILS % (AUTO) 1.1 % (0.0-2.0); EOSINOPHILS % (AUTO) 0.4 % (0.0-3.0); LYMPHOCYTES % (AUTO) 36.9 % (20.0-45.0); MEAN CORPUSCULAR HEMOGLOBIN 32.2 PG (27.0-31.0); MEAN CORPUSCULAR HGB CONC 35.1 G/DL (32.0-36.0); MEAN CORPUSCULAR VOLUME 92 FL (80-99); MEAN PLATELET VOLUME 5.8 FL (6.5-10.1); MONOCYTES % (AUTO) 6.5 % (1.0-10.0); NEUTROPHILS % (AUTO) 55.2 % (45.0-75.0); PLATELET COUNT 346 K/UL (150-450); RED BLOOD COUNT 3.89 M/UL (4.70-6.10); RED CELL DISTRIBUTION WIDTH 11.2 % (11.6-14.8); WHITE BLOOD COUNT 6.7 K/UL (4.8-10.8)
[2017-10-25 05:38] LABS: PROTHROMBIN TIME 10.7 SEC (9.30-11.50)
[2017-10-25 06:05] LABS: ALANINE AMINOTRANSFERASE 23 U/L (12-78); ANION GAP 12 mmol/L (5-15); ASPARTATE AMINO TRANSFERASE 20 U/L (15-37); BILIRUBIN,DIRECT 0.1 MG/DL (0.0-0.3); CALCIUM 8.1 MG/DL (8.5-10.1); CARBON DIOXIDE 21 MMOL/L (21-32); CHLORIDE 106 MMOL/L (98-107); CREATININE 1.3 MG/DL (0.55-1.30); GLOMERULAR FILTRATION RATE > 60 mL/min (>60); PHOSPHORUS 1.4 MG/DL (2.5-4.9); SODIUM 139 MMOL/L (136-145); TOTAL PROTEIN 5.6 G/DL (6.4-8.2)
[2017-10-25 06:15] LABS: POTASSIUM 2.5 MMOL/L (3.5-5.1)
--- NOTE | 2017-10-25 08:04 | Pulmonolgy Critical Care Note ---
Critical Care - Asmt/Plan Assessment/Plan: ASSESSMENT Recurrent DKA DM type 1 Leukocytosis acute renal failure , probably due to dehydration -resolved amphetamine abuse Hepatitis C hyperkalemia (5.9) resolved hypokalemia hypomagnesemia Hyponatremia (127) resolved PLAN OF CARE ICU insulin gtt, anion gap closed- transition to SQ regimen with premeal short acting and long acting insulin- as per endo orders endo follows aggressive IV hydration replace lytes as needed ( K and Mg today) O2 HHN prn a/emetic prn DVT prophylaxis pain management Bowel regimen reinforce abstinence from street drugs urine tox screen negative transfer to [facility] floor after insulin gtt stopped case discussed and evaluated by supervising physician Critical Care - Objective Last 24 Hour Vital Signs Date Time Temp Pulse Resp B/P (MAP) Pulse Ox O2 Delivery O2 Flow Rate FiO2 10/25/17 07:19 56 18 Room Air 21 10/25/17 07:00 65 12 105/55 100 Room Air 10/25/17 06:30 67 20 101/57 100 Room Air 10/25/17 06:00 58 17 102/58 100 Room Air 10/25/17 05:30 58 19 103/54 100 Room Air 10/25/17 05:00 59 18 116/87 100 Room Air 10/25/17 04:30 56 18 98/32 99 Room Air 10/25/17 04:00 61 10/25/17 04:00 98.7 59 17 104/32 99 Room Air 10/25/17 03:30 54 18 100/60 100 Room Air 10/25/17 03:00 59 17 92/39 100 Room Air 10/25/17 02:30 60 14 111/56 100 Room Air 10/25/17 02:00 55 14 99/46 100 Room Air 10/25/17 01:30 62 17 105/42 100 Room Air 10/25/17 01:00 59 17 105/41 100 Room Air 10/25/17 00:30 59 17 94/61 99 Room Air 10/25/17 00:13 61 10/25/17 00:00 98.7 60 16 107/45 99 Room Air 10/24/17 23:30 80 17 105/42 98 Room Air 10/24/17 23:00 81 20 101/43 98 Room Air 10/24/17 22:30 83 20 97/45 100 Room Air 10/24/17 22:00 92 17 111/57 99 Room Air 10/24/17 21:30 92 17 117/52 100 Room Air 10/24/17 21:00 92 20 99/43 100 Room Air 10/24/17 20:30 92 22 130/50 100 Room Air 10/24/17 20:25 79 15 115/60 99 Room Air 10/24/17 20:11 78 10/24/17 20:00 97.8 83 19 100 Room Air 10/24/17 19:55 93 16 Room Air 10/24/17 19:00 92 19 122/56 100 Room Air 10/24/17 18:00 80 21 116/56 100 Room Air 10/24/17 17:00 75 18 108/45 100 Room Air 10/24/17 16:00 81 10/24/17 16:00 97.8 74 20 121/57 100 Room Air 10/24/17 15:00 78 21 126/69 100 Room Air 10/24/17 14:00 73 19 127/75 99 Room Air 10/24/17 13:00 72 20 124/76 99 Room Air 10/24/17 12:00 99 19 126/65 99 Room Air 10/24/17 12:00 104 10/24/17 11:00 101 18 126/55 100 Room Air 10/24/17 10:00 98 18 131/84 100 Room Air 10/24/17 09:00 89 21 111/50 100 Room Air Status: awake Condition: improving HEENT: atraumatic, normocephalic Neck: full ROM Lungs: clear Heart: HR/BP stable Abdomen: soft, non-tender, active bowel sounds Extremities: no C/C/E Accucheck: 100 Critical Care - Subjective ROS Limited/Unobtainable: Yes Interval Events: leukocytosis resolved BS better anion gap closed low K and Mg Condition: improving IV Access: peripheral EKG Rhythm: Sinus Rhythm FI02: 21 Sputum Amount: None Fluids: NS at 150 Drips: insulin at 0.5 u/hr Jewell Denis NP (Vanchtein) Oct 25, 2017 08:04
[2017-10-25] MEDS: Morphine Sulfate 4mg/ml Inj IVP PRN ×3 (08:31→21:50)
--- NOTE | 2017-10-25 09:09 | General Progress Note ---
Assessment/Plan Problem List: (1) Type 1 diabetes mellitus ICD Codes: E10.9 - Type 1 diabetes mellitus without complications SNOMED: 80984057 (2) Leukocytosis ICD Codes: D72.829 - Elevated white blood cell count, unspecified SNOMED: 849547635, 143072039 (3) Dehydration ICD Codes: E86.0 - Dehydration SNOMED: 05530136 (4) DKA, type 1 ICD Codes: E10.10 - Type 1 diabetes mellitus with ketoacidosis without coma SNOMED: 95080257, 663701161 Qualifiers: Qualified Codes: E10.10 - Type 1 diabetes mellitus with ketoacidosis without coma (5) SHAJI (acute kidney injury) ICD Codes: N17.9 - Acute kidney failure, unspecified SNOMED: 42531994 Status: stable, progressing Assessment/Plan bs control endo f/u diet f/u cbc bmp am Subjective Allergies: Coded Allergies: No Known Allergies (Unverified , 08/01/17) All Systems: reviewed and negative except above Subjective sleepy calm in icu Objective Last 24 Hour Vital Signs Date Time Temp Pulse Resp B/P (MAP) Pulse Ox O2 Delivery O2 Flow Rate FiO2 10/25/17 08:04 98.2 89 18 100/56 100 Room Air 10/25/17 07:19 56 18 Room Air 21 10/25/17 07:00 65 12 105/55 100 Room Air 10/25/17 06:30 67 20 101/57 100 Room Air 10/25/17 06:00 58 17 102/58 100 Room Air 10/25/17 05:30 58 19 103/54 100 Room Air 10/25/17 05:00 59 18 116/87 100 Room Air 10/25/17 04:30 56 18 98/32 99 Room Air 10/25/17 04:00 61 10/25/17 04:00 98.7 59 17 104/32 99 Room Air 10/25/17 03:30 54 18 100/60 100 Room Air 10/25/17 03:00 59 17 92/39 100 Room Air 10/25/17 02:30 60 14 111/56 100 Room Air 10/25/17 02:00 55 14 99/46 100 Room Air 10/25/17 01:30 62 17 105/42 100 Room Air 10/25/17 01:00 59 17 105/41 100 Room Air 10/25/17 00:30 59 17 94/61 99 Room Air 10/25/17 00:13 61 10/25/17 00:00 98.7 60 16 107/45 99 Room Air 10/24/17 23:30 80 17 105/42 98 Room Air 10/24/17 23:00 81 20 101/43 98 Room Air 10/24/17 22:30 83 20 97/45 100 Room Air 10/24/17 22:00 92 17 111/57 99 Room Air 10/24/17 21:30 92 17 117/52 100 Room Air 10/24/17 21:00 92 20 99/43 100 Room Air 10/24/17 20:30 92 22 130/50 100 Room Air 10/24/17 20:25 79 15 115/60 99 Room Air 10/24/17 20:11 78 10/24/17 20:00 97.8 83 19 100 Room Air 10/24/17 19:55 93 16 Room Air 10/24/17 19:00 92 19 122/56 100 Room Air 10/24/17 18:00 80 21 116/56 100 Room Air 10/24/17 17:00 75 18 108/45 100 Room Air 10/24/17 16:00 81 10/24/17 16:00 97.8 74 20 121/57 100 Room Air 10/24/17 15:00 78 21 126/69 100 Room Air 10/24/17 14:00 73 19 127/75 99 Room Air 10/24/17 13:00 72 20 124/76 99 Room Air 10/24/17 12:00 99 19 126/65 99 Room Air 10/24/17 12:00 104 10/24/17 11:00 101 18 126/55 100 Room Air 10/24/17 10:00 98 18 131/84 100 Room Air Intake and Output 10/25/17 10/26/17 19:00 07:00 Intake Total 411 ml Balance 411 ml Intake Oral 260 ml IV Total 151 ml Laboratory Tests 10/25/17 04:40: White Blood Count 6.7#, Red Blood Count 3.89L, Hemoglobin 12.5L, Hematocrit 35.7L, Mean Corpuscular Volume 92#, Mean Corpuscular Hemoglobin 32.2H, Mean Corpuscular Hemoglobin Concent 35.1, Red Cell Distribution Width 11.2L, Platelet Count 346, Mean Platelet Volume 5.8L, Neutrophils (%) (Auto) 55.2, Lymphocytes (%) (Auto) 36.9, Monocytes (%) (Auto) 6.5, Eosinophils (%) (Auto) 0.4, Basophils (%) (Auto) 1.1, Prothrombin Time 10.7, Prothromb Time International Ratio 1.0, Activated Partial Thromboplast Time 26, Sodium Level 139, Potassium Level 2.5*L, Chloride Level 106, Carbon Dioxide Level 21, Anion Gap 12, Blood Urea Nitrogen 9, Creatinine 1.3, Estimat Glomerular Filtration Rate > 60, Glucose Level 178#H, Calcium Level 8.1L, Phosphorus Level 1.4L, Magnesium Level 1.6L, Total Bilirubin 0.6, Direct Bilirubin 0.1, Aspartate Amino Transf (AST/SGOT) 20, Alanine Aminotransferase (ALT/SGPT) 23, Alkaline Phosphatase 89, Total Protein 5.6#L, Albumin 2.8L, Globulin 2.8, Albumin/ Globulin Ratio 1.0 Height (Feet): 5 Height (Inches): 10.00 Weight (Pounds): 158 General Appearance: lethargic EENT: normal ENT inspection Neck: normal alignment Cardiovascular: normal peripheral pulses, normal rate, regular rhythm Respiratory/Chest: chest wall non-tender, lungs clear, normal breath sounds Abdomen: normal bowel sounds, non tender, soft Extremities: normal inspection Edema: no edema noted Arm (L), no edema noted Arm (R), no edema noted Leg (L), no edema noted Leg (R), no edema noted Pedal (L), no edema noted Pedal (R), no edema noted Generalized Neurologic: responsive, motor weakness Skin: normal pigmentation, warm/dry SIGIFREDO ABREU Oct 25, 2017 09:09
[2017-10-25] MEDS ORDERED: Potassium Phosphate 30 MM in Sodium Chloride 500ML 550 ML IV ONE (09:30)
[2017-10-25 10:44] LABS: ABG ALLEN TEST POSITIVE; ABG BASE EXCESS -3.1; ABG PCO2 35.1 mmHg (35.0-45.0)
[2017-10-25] MEDS: Heparin 5000 units/ml inj SUBQ SCH ×2 (11:05→21:49)
[2017-10-25] MEDS ORDERED: NovoLOG Insulin Flexpen SUBQ SCH ×3 (17:00→21:00)
--- NOTE | 2017-10-25 18:25 | Cardiology Report ---
APPROVED REPORT EKG Measurement Heart [id number] Sinus tachycardia with short [place] Nonspecific ST abnormality Abnormal ECG
[2017-10-25 19:10] LABS: ANION GAP 9 mmol/L (5-15); CALCIUM 8.2 MG/DL (8.5-10.1); CARBON DIOXIDE 26 MMOL/L (21-32); CHLORIDE 104 MMOL/L (98-107); CREATININE 1.1 MG/DL (0.55-1.30); GLOMERULAR FILTRATION RATE > 60 mL/min (>60); POTASSIUM 3.8 MMOL/L (3.5-5.1); SODIUM 138 MMOL/L (136-145)
[2017-10-25] MEDS ORDERED: Nitroglycerin Subl 0.4mg tab SL PRN (20:05)
[2017-10-25] MEDS ORDERED: Tubing IV Secondary IV ONE (20:10)
[2017-10-25] MEDS ORDERED: NS 500ML ONE (20:10)
[2017-10-25] MEDS ORDERED: Ipratropium 0.02% Inh Soln 2.5ml UD HHN PRN (20:15)
[2017-10-25] MEDS ORDERED: Levalbuterol Inh UD 1.25mg/0.5ml HHN PRN (20:15)
[2017-10-25] MEDS ORDERED: Miralax 17gm pkt ORAL PRN (21:00)
[2017-10-25] MEDS ORDERED: Albuterol/Ipratropium 3ml neb HHN PRN (21:00)
[2017-10-25] MEDS ORDERED: Levemir Flexpen SUBQ SCH (21:00)
[2017-10-25] MEDS: NovoLOG Insulin Flexpen SUBQ SCH (22:10)
[2017-10-25] MEDS: Levemir Flexpen SUBQ SCH (22:12)
[2017-10-25] MEDS: LORazepam Inj 2mg/ml 1ml IV PRN (23:26)
[2017-10-26 04:00] VITALS: BP 130/77
[2017-10-26] MEDS: NovoLOG Insulin Flexpen SUBQ SCH ×8 (06:52→20:46)
[2017-10-26 07:48] LABS: BASOPHILS % (AUTO) 0.9 % (0.0-2.0); EOSINOPHILS % (AUTO) 0.4 % (0.0-3.0); MEAN CORPUSCULAR HEMOGLOBIN 31.6 PG (27.0-31.0); MEAN CORPUSCULAR HGB CONC 34.8 G/DL (32.0-36.0); MEAN CORPUSCULAR VOLUME 91 FL (80-99); MEAN PLATELET VOLUME 5.6 FL (6.5-10.1); MONOCYTES % (AUTO) 6.1 % (1.0-10.0); NEUTROPHILS % (AUTO) 58.6 % (45.0-75.0); PLATELET COUNT 292 K/UL (150-450); RED BLOOD COUNT 4.09 M/UL (4.70-6.10); RED CELL DISTRIBUTION WIDTH 10.9 % (11.6-14.8); WHITE BLOOD COUNT 4.5 K/UL (4.8-10.8)
[2017-10-26 08:00] VITALS: BP 136/84
[2017-10-26 08:08] LABS: ANION GAP 7 mmol/L (5-15); CALCIUM 8.5 MG/DL (8.5-10.1); CARBON DIOXIDE 30 MMOL/L (21-32); CHLORIDE 105 MMOL/L (98-107); CREATININE 0.9 MG/DL (0.55-1.30); GLOMERULAR FILTRATION RATE > 60 mL/min (>60); MAGNESIUM 1.8 MG/DL (1.8-2.4); POTASSIUM 2.9 MMOL/L (3.5-5.1); SODIUM 142 MMOL/L (136-145)
--- NOTE | 2017-10-26 08:25 | General Progress Note ---
Assessment/Plan Problem List: (1) Type 1 diabetes mellitus ICD Codes: E10.9 - Type 1 diabetes mellitus without complications SNOMED: 83585124 (2) Leukocytosis ICD Codes: D72.829 - Elevated white blood cell count, unspecified SNOMED: 227987048, 238088835 (3) Dehydration ICD Codes: E86.0 - Dehydration SNOMED: 35483247 (4) DKA, type 1 ICD Codes: E10.10 - Type 1 diabetes mellitus with ketoacidosis without coma SNOMED: 87547057, 088994416 Qualifiers: Qualified Codes: E10.10 - Type 1 diabetes mellitus with ketoacidosis without coma (5) SHAJI (acute kidney injury) ICD Codes: N17.9 - Acute kidney failure, unspecified SNOMED: 16712672 Status: stable, progressing, tolerating diet Assessment/Plan bs control endo f/u diet f/u cbc bmp am neph eval dc plan Subjective Constitutional: Reports: weakness Allergies: Coded Allergies: No Known Allergies (Unverified , 08/01/17) All Systems: reviewed and negative except above Subjective sleepy calm Objective Last 24 Hour Vital Signs Date Time Temp Pulse Resp B/P (MAP) Pulse Ox O2 Delivery O2 Flow Rate FiO2 10/26/17 04:00 97.3 63 20 130/77 99 Room Air 10/26/17 04:00 Room Air 10/25/17 23:17 97.3 69 19 142/84 97 Room Air 69 10/25/17 20:00 Room Air 10/25/17 19:18 68 17 127/68 100 Room Air 10/25/17 19:02 71 18 Room Air 21 10/25/17 19:00 98.0 90 18 108/48 100 Room Air 10/25/17 18:00 97.6 90 18 128/78 100 Room Air 10/25/17 17:00 73 17 116/68 99 Room Air 10/25/17 16:12 97.6 10/25/17 16:00 94 10/25/17 16:00 68 19 116/65 99 Room Air 10/25/17 15:00 71 18 119/77 100 Room Air 10/25/17 14:00 79 19 117/57 99 Room Air 10/25/17 13:00 98 12 117/57 100 Room Air 10/25/17 12:00 98.0 88 20 91/58 97 Room Air 10/25/17 12:00 94 10/25/17 11:00 68 14 108/65 100 Room Air 10/25/17 10:00 65 17 120/72 100 Room Air 10/25/17 09:00 65 20 119/64 100 Room Air Intake and Output 10/26/17 10/27/17 19:00 07:00 Intake Total 150 ml Balance 150 ml IV Total 150 ml Laboratory Tests 10/25/17 10:40: Arterial Blood pH 7.397, Arterial Blood Partial Pressure CO2 35.1, Arterial Blood Partial Pressure O2 96.8, Arterial Blood HCO3 21.1L, Arterial Blood Oxygen Saturation 97.4, Arterial Blood Base Excess -3.1, Juan Test Positive 10/25/17 17:02: Sodium Level 138, Potassium Level 3.8#, Chloride Level 104, Carbon Dioxide Level 26, Anion Gap 9, Blood Urea Nitrogen 6L, Creatinine 1.1, Estimat Glomerular Filtration Rate > 60, Glucose Level 148H, Calcium Level 8.2L 10/26/17 05:45: Sodium Level 142, Potassium Level 2.9L, Chloride Level 105, Carbon Dioxide Level 30, Anion Gap 7, Blood Urea Nitrogen 8, Creatinine 0.9, Estimat Glomerular Filtration Rate > 60, Glucose Level 142H, Calcium Level 8.5, White Blood Count 4.5L, Red Blood Count 4.09L, Hemoglobin 13.0L, Hematocrit 37.2L, Mean Corpuscular Volume 91, Mean Corpuscular Hemoglobin 31.6H, Mean Corpuscular Hemoglobin Concent 34.8, Red Cell Distribution Width 10.9L, Platelet Count 292, Mean Platelet Volume 5.6L, Neutrophils (%) (Auto) 58.6, Lymphocytes (%) (Auto) 34.0, Monocytes (%) (Auto) 6.1, Eosinophils (%) (Auto) 0.4, Basophils (%) (Auto ) 0.9, Magnesium Level 1.8 Height (Feet): 5 Height (Inches): 10.00 Weight (Pounds): 158 General Appearance: lethargic EENT: normal ENT inspection Neck: normal alignment Cardiovascular: normal peripheral pulses, normal rate, regular rhythm Respiratory/Chest: chest wall non-tender, lungs clear, normal breath sounds Abdomen: normal bowel sounds, non tender, soft Extremities: normal inspection Edema: no edema noted Arm (L), no edema noted Arm (R), no edema noted Leg (L), no edema noted Leg (R), no edema noted Pedal (L), no edema noted Pedal (R), no edema noted Generalized Neurologic: motor weakness Skin: normal pigmentation, warm/dry SIGIFREDO ABREU Oct 26, 2017 08:25
[2017-10-26] MEDS: Morphine Sulfate 4mg/ml Inj IVP PRN ×4 (08:38→20:48)
[2017-10-26] MEDS: Heparin 5000 units/ml inj SUBQ SCH ×2 (08:39→20:48)
--- NOTE | 2017-10-26 11:08 | General Progress Note ---
Assessment/Plan Problem List: (1) DKA, type 1 ICD Codes: E10.10 - Type 1 diabetes mellitus with ketoacidosis without coma SNOMED: 44444804, 015296894 Qualifiers: Qualified Codes: E10.10 - Type 1 diabetes mellitus with ketoacidosis without coma (2) Type 1 diabetes mellitus ICD Codes: E10.9 - Type 1 diabetes mellitus without complications SNOMED: 56215670 (3) SHAJI (acute kidney injury) ICD Codes: N17.9 - Acute kidney failure, unspecified SNOMED: 15912718 Assessment/Plan DKA resolved continue current insulin regimen he is cleared for DC home after K is replaced he does have insulin supply - no need for Rx Subjective Allergies: Coded Allergies: No Known Allergies (Unverified , 08/01/17) All Systems: reviewed and negative except above Subjective doing fine Objective Last 24 Hour Vital Signs Date Time Temp Pulse Resp B/P (MAP) Pulse Ox O2 Delivery O2 Flow Rate FiO2 10/26/17 09:08 97.3 10/26/17 08:00 96.8 88 20 136/84 100 10/26/17 04:00 97.3 63 20 130/77 99 Room Air 10/26/17 04:00 Room Air 10/25/17 23:17 97.3 69 19 142/84 97 Room Air 69 10/25/17 20:00 Room Air 10/25/17 19:18 68 17 127/68 100 Room Air 10/25/17 19:02 71 18 Room Air 21 10/25/17 19:00 98.0 90 18 108/48 100 Room Air 10/25/17 18:00 97.6 90 18 128/78 100 Room Air 10/25/17 17:00 73 17 116/68 99 Room Air 10/25/17 16:12 97.6 10/25/17 16:00 94 10/25/17 16:00 68 19 116/65 99 Room Air 10/25/17 15:00 71 18 119/77 100 Room Air 10/25/17 14:00 79 19 117/57 99 Room Air 10/25/17 13:00 98 12 117/57 100 Room Air 10/25/17 12:00 98.0 88 20 91/58 97 Room Air 10/25/17 12:00 94 Intake and Output 10/26/17 10/27/17 19:00 07:00 Intake Total 150 ml Balance 150 ml IV Total 150 ml Laboratory Tests 10/25/17 17:02: Sodium Level 138, Potassium Level 3.8#, Chloride Level 104, Carbon Dioxide Level 26, Anion Gap 9, Blood Urea Nitrogen 6L, Creatinine 1.1, Estimat Glomerular Filtration Rate > 60, Glucose Level 148H, Calcium Level 8.2L 10/26/17 05:45: Sodium Level 142, Potassium Level 2.9L, Chloride Level 105, Carbon Dioxide Level 30, Anion Gap 7, Blood Urea Nitrogen 8, Creatinine 0.9, Estimat Glomerular Filtration Rate > 60, Glucose Level 142H, Calcium Level 8.5, White Blood Count 4.5L, Red Blood Count 4.09L, Hemoglobin 13.0L, Hematocrit 37.2L, Mean Corpuscular Volume 91, Mean Corpuscular Hemoglobin 31.6H, Mean Corpuscular Hemoglobin Concent 34.8, Red Cell Distribution Width 10.9L, Platelet Count 292, Mean Platelet Volume 5.6L, Neutrophils (%) (Auto) 58.6, Lymphocytes (%) (Auto) 34.0, Monocytes (%) (Auto) 6.1, Eosinophils (%) (Auto) 0.4, Basophils (%) (Auto ) 0.9, Magnesium Level 1.8 Height (Feet): 5 Height (Inches): 10.00 Weight (Pounds): 158 General Appearance: no apparent distress Neck: non-tender Cardiovascular: normal rate Respiratory/Chest: lungs clear Objective Current Medications Medications (Trade) Dose Ordered Sig/Alfredo Route PRN Reason Start Time Stop Time Status Last Admin Dose Admin Acetaminophen (Tylenol) 650 mg Q4H PRN ORAL Fever>100.5 10/26/17 00:00 11/23/17 07:59 Albuterol/ Ipratropium (Albuterol/ Ipratropium) 3 ml Q4H PRN HHN Shortness of Breath 10/25/17 21:00 10/30/17 20:59 Dextrose (Dextrose 50%) PRN PRN IV HYPOGLYCEMIA 10/25/17 21:00 11/24/17 20:59 10/26/17 03:55 Dextrose (Dextrose 50%) STAT PRN IV Hypoglycemia 10/26/17 16:30 11/24/17 16:29 Heparin Sodium (Porcine) (Heparin 5000 units/ml) 5,000 units EVERY 12 HOURS SUBQ 10/25/17 21:00 11/23/17 08:59 10/26/17 08:39 Insulin Aspart (NovoLOG) BEFORE MEALS AND HS SUBQ 10/25/17 21:00 11/24/17 16:59 10/26/17 06:52 Insulin Aspart (NovoLOG) 8 units AC+HS SUBQ 10/26/17 06:30 11/25/17 06:29 10/26/17 06:53 Insulin Detemir (Levemir) 30 units QHS SUBQ 10/25/17 22:00 11/24/17 21:59 10/25/17 22:12 Ipratropium [place] (Atrovent) 500 mcg Q4H PRN HHN Shortness of Breath 1st Line A 10/25/17 20:15 10/29/17 12:14 Levalbuterol HCl (Xopenex) 1.25 mg Q4H PRN HHN Shortness of Breath 10/25/17 20:15 10/29/17 12:14 Lorazepam (Ativan 2mg/ml 1ml) 2 mg Q2H PRN IV agitation 10/25/17 22:00 10/31/17 07:59 10/25/17 23:26 Morphine Sulfate (Morphine Sulfate) 4 mg Q4H PRN IVP Severe Pain (Pain Scale 7-10) 10/25/17 21:00 11/01/17 20:59 10/26/17 08:38 Nitroglycerin (Ntg) 0.4 mg Q5M PRN SL Prn Chest Pain 10/25/17 20:05 11/24/17 20:04 Ondansetron HCl (Zofran) 4 mg Q6H PRN IVP Nausea & Vomiting 10/25/17 21:00 11/24/17 20:59 Polyethylene Glycol (Miralax) 17 gm DAILYPRN PRN ORAL Constipation 10/25/17 21:00 11/24/17 20:59 Sodium Chloride 1,000 ml @ 150 mls/hr Q6H40M IV 10/25/17 22:00 11/23/17 21:59 10/26/17 04:39 Item Value Date Time Bedside Blood Glucose 140 mg/dl H 10/26/17 0653 Bedside Blood Glucose 375 mg/dl H 10/25/17 2212 Bedside Blood Glucose 155 mg/dl H 10/25/17 1726 SERGIO LE Oct 26, 2017 11:08
[2017-10-26 12:00] VITALS: BP 136/82
--- NOTE | 2017-10-26 13:13 | Pulmonology Progress Note ---
Assessment/Plan Assessment/Plan ASSESSMENT Recurrent DKA DM type 1 Leukocytosis amphetamine abuse Hepatitis C acute renal failure , probably due to dehydration -resolved e/lyte imbalance: hyperkalemia (5.9) resolved hypokalemia hypomagnesemia hyponatremia (127) resolved PLAN OF CARE [facility] floor s/p insulin gtt, anion gap closed- transitioned to SQ regimen with premeal short acting and long acting insulin- as per endo management endo follows IV hydration replace K, check K and Mg in am O2 HHN prn a/emetic prn DVT prophylaxis pain management Bowel regimen reinforce abstinence from street drugs , urine tox screen negative ready for discharge case discussed and evaluated by supervising physician Subjective Allergies: Coded Allergies: No Known Allergies (Unverified , 08/01/17) Subjective on [facility] floor BS better low K denies SOB, no CP, Objective Last 24 Hour Vital Signs Date Time Temp Pulse Resp B/P (MAP) Pulse Ox O2 Delivery O2 Flow Rate FiO2 10/26/17 09:08 97.3 10/26/17 08:00 96.8 88 20 136/84 100 10/26/17 04:00 97.3 63 20 130/77 99 Room Air 10/26/17 04:00 Room Air 10/25/17 23:17 97.3 69 19 142/84 97 Room Air 69 10/25/17 20:00 Room Air 10/25/17 19:18 68 17 127/68 100 Room Air 10/25/17 19:02 71 18 Room Air 21 10/25/17 19:00 98.0 90 18 108/48 100 Room Air 10/25/17 18:00 97.6 90 18 128/78 100 Room Air 10/25/17 17:00 73 17 116/68 99 Room Air 10/25/17 16:12 97.6 10/25/17 16:00 94 10/25/17 16:00 68 19 116/65 99 Room Air 10/25/17 15:00 71 18 119/77 100 Room Air 10/25/17 14:00 79 19 117/57 99 Room Air Intake and Output 10/26/17 10/27/17 19:00 07:00 Intake Total 510 ml Output Total 750 ml Balance -240 ml Intake Oral 360 ml IV Total 150 ml Output Urine Total 750 ml General Appearance: WD/WN, no acute distress HEENT: normocephalic, atraumatic, anicteric, mucous membranes moist Respiratory/Chest: lungs clear, no respiratory distress, no accessory muscle use Cardiovascular: normal rate, regular rhythm, no JVD Abdomen: normal bowel sounds, soft, non tender, non distended Genitourinary: normal external genitalia Extremities: no edema Neurologic/Psychiatric: no motor/sensory deficits, alert, oriented x 3, responsive, normal mood/affect Musculoskeletal: normal muscle bulk Laboratory Tests 10/25/17 17:02: Sodium Level 138, Potassium Level 3.8#, Chloride Level 104, Carbon Dioxide Level 26, Anion Gap 9, Blood Urea Nitrogen 6L, Creatinine 1.1, Estimat Glomerular Filtration Rate > 60, Glucose Level 148H, Calcium Level 8.2L 10/26/17 05:45: Sodium Level 142, Potassium Level 2.9L, Chloride Level 105, Carbon Dioxide Level 30, Anion Gap 7, Blood Urea Nitrogen 8, Creatinine 0.9, Estimat Glomerular Filtration Rate > 60, Glucose Level 142H, Calcium Level 8.5, White Blood Count 4.5L, Red Blood Count 4.09L, Hemoglobin 13.0L, Hematocrit 37.2L, Mean Corpuscular Volume 91, Mean Corpuscular Hemoglobin 31.6H, Mean Corpuscular Hemoglobin Concent 34.8, Red Cell Distribution Width 10.9L, Platelet Count 292, Mean Platelet Volume 5.6L, Neutrophils (%) (Auto) 58.6, Lymphocytes (%) (Auto) 34.0, Monocytes (%) (Auto) 6.1, Eosinophils (%) (Auto) 0.4, Basophils (%) (Auto ) 0.9, Magnesium Level 1.8 Current Medications Medications (Trade) Dose Ordered Sig/Alfredo Route PRN Reason Start Time Stop Time Status Last Admin Dose Admin Acetaminophen (Tylenol) 650 mg Q4H PRN ORAL Fever>100.5 10/26/17 00:00 11/23/17 07:59 Albuterol/ Ipratropium (Albuterol/ Ipratropium) 3 ml Q4H PRN HHN Shortness of Breath 10/25/17 21:00 10/30/17 20:59 Dextrose (Dextrose 50%) PRN PRN IV HYPOGLYCEMIA 10/25/17 21:00 11/24/17 20:59 10/26/17 03:55 Dextrose (Dextrose 50%) STAT PRN IV Hypoglycemia 10/26/17 16:30 11/24/17 16:29 Heparin Sodium (Porcine) (Heparin 5000 units/ml) 5,000 units EVERY 12 HOURS SUBQ 10/25/17 21:00 11/23/17 08:59 10/26/17 08:39 Insulin Aspart (NovoLOG) BEFORE MEALS AND HS SUBQ 10/25/17 21:00 11/24/17 16:59 10/26/17 12:47 Insulin Aspart (NovoLOG) 8 units AC+HS SUBQ 10/26/17 06:30 11/25/17 06:29 10/26/17 12:49 Insulin Detemir (Levemir) 30 units QHS SUBQ 10/25/17 22:00 11/24/17 21:59 10/25/17 22:12 Ipratropium [place] (Atrovent) 500 mcg Q4H PRN HHN Shortness of Breath 1st Line A 10/25/17 20:15 10/29/17 12:14 Levalbuterol HCl (Xopenex) 1.25 mg Q4H PRN HHN Shortness of Breath 10/25/17 20:15 10/29/17 12:14 Lorazepam (Ativan 2mg/ml 1ml) 2 mg Q2H PRN IV agitation 10/25/17 22:00 10/31/17 07:59 10/25/17 23:26 Morphine Sulfate (Morphine Sulfate) 4 mg Q4H PRN IVP Severe Pain (Pain Scale 7-10) 10/25/17 21:00 11/01/17 20:59 10/26/17 12:38 Nitroglycerin (Ntg) 0.4 mg Q5M PRN SL Prn Chest Pain 10/25/17 20:05 11/24/17 20:04 Ondansetron HCl (Zofran) 4 mg Q6H PRN IVP Nausea & Vomiting 10/25/17 21:00 11/24/17 20:59 Polyethylene Glycol (Miralax) 17 gm DAILYPRN PRN ORAL Constipation 10/25/17 21:00 11/24/17 20:59 Sodium Chloride 1,000 ml @ 150 mls/hr Q6H40M IV 10/25/17 22:00 11/23/17 21:59 10/26/17 11:20 Adeel ([facility])Jewell NP Oct 26, 2017 13:13
[2017-10-26] MEDS ORDERED: Tubing IV Secondary IV ONE (14:50)
[2017-10-26] MEDS: LORazepam Inj 2mg/ml 1ml IV PRN ×2 (15:26→18:51)
[2017-10-26 16:00] VITALS: BP 151/100
[2017-10-26 19:57] VITALS: BP 144/98
[2017-10-26] MEDS: Levemir Flexpen SUBQ SCH (20:44)
[2017-10-26 23:53] VITALS: BP 143/94
[2017-10-27 04:00] VITALS: BP 129/82
[2017-10-27] MEDS: NovoLOG Insulin Flexpen SUBQ SCH ×4 (06:25→11:22)
[2017-10-27] MEDS: Morphine Sulfate 4mg/ml Inj IVP PRN ×2 (06:31→11:01)
[2017-10-27 07:04] LABS: ANION GAP 4 mmol/L (5-15); CARBON DIOXIDE 31 MMOL/L (21-32); CHLORIDE 106 MMOL/L (98-107); CREATININE 0.7 MG/DL (0.55-1.30); GLOMERULAR FILTRATION RATE > 60 mL/min (>60); POTASSIUM 3.4 MMOL/L (3.5-5.1); SODIUM 141 MMOL/L (136-145)
[2017-10-27 07:05] LABS: EOSINOPHILS % (AUTO) 0.9 % (0.0-3.0); MEAN CORPUSCULAR HEMOGLOBIN 31.5 PG (27.0-31.0); MEAN CORPUSCULAR HGB CONC 34.7 G/DL (32.0-36.0); MEAN CORPUSCULAR VOLUME 91 FL (80-99); MEAN PLATELET VOLUME 5.7 FL (6.5-10.1); MONOCYTES % (AUTO) 6.2 % (1.0-10.0); PLATELET COUNT 279 K/UL (150-450); RED BLOOD COUNT 4.09 M/UL (4.70-6.10); WHITE BLOOD COUNT 4.7 K/UL (4.8-10.8)
[2017-10-27 08:00] VITALS: BP 132/92
[2017-10-27] MEDS: LORazepam Inj 2mg/ml 1ml IV PRN (09:04)
[2017-10-27] MEDS: Heparin 5000 units/ml inj SUBQ SCH (09:05)
[2017-10-27 12:00] VITALS: BP 146/96
--- NOTE | 2017-10-27 13:31 | General Progress Note ---
Assessment/Plan Problem List: (1) Type 1 diabetes mellitus ICD Codes: E10.9 - Type 1 diabetes mellitus without complications SNOMED: 07717652 (2) Leukocytosis ICD Codes: D72.829 - Elevated white blood cell count, unspecified SNOMED: 249846848, 356633217 (3) Dehydration ICD Codes: E86.0 - Dehydration SNOMED: 54311653 (4) DKA, type 1 ICD Codes: E10.10 - Type 1 diabetes mellitus with ketoacidosis without coma SNOMED: 04361327, 466816935 Qualifiers: Qualified Codes: E10.10 - Type 1 diabetes mellitus with ketoacidosis without coma (5) SHAJI (acute kidney injury) ICD Codes: N17.9 - Acute kidney failure, unspecified SNOMED: 59666504 Status: stable, progressing, tolerating diet Assessment/Plan bs control endo f/u diet f/u dc home Subjective Constitutional: Reports: weakness Allergies: Coded Allergies: No Known Allergies (Unverified , 08/01/17) All Systems: reviewed and negative except above Subjective calm feeling better Objective Last 24 Hour Vital Signs Date Time Temp Pulse Resp B/P (MAP) Pulse Ox O2 Delivery O2 Flow Rate FiO2 10/27/17 12:00 97.5 69 20 146/96 98 Room Air 10/27/17 11:46 86 18 Room Air 21 10/27/17 11:31 97.2 10/27/17 08:00 97.2 80 18 132/92 97 Room Air 10/27/17 04:00 97.2 75 18 129/82 98 Room Air 10/26/17 23:53 97.9 89 18 143/94 99 10/26/17 19:57 97.7 97 18 144/98 99 10/26/17 16:00 97.7 70 20 151/100 100 10/26/17 16:00 Room Air Laboratory Tests 10/27/17 05:20: White Blood Count 4.7L, Red Blood Count 4.09L, Hemoglobin 12.9L, Hematocrit 37.2L, Mean Corpuscular Volume 91, Mean Corpuscular Hemoglobin 31.5H, Mean Corpuscular Hemoglobin Concent 34.7, Red Cell Distribution Width 11.0L, Platelet Count 279, Mean Platelet Volume 5.7L, Neutrophils (%) (Auto) 53.0, Lymphocytes (%) (Auto) 39.0, Monocytes (%) (Auto) 6.2, Eosinophils (%) (Auto) 0.9, Basophils (%) (Auto) 1.0, Sodium Level 141, Potassium Level 3.4L, Chloride Level 106, Carbon Dioxide Level 31, Anion Gap 4L, Blood Urea Nitrogen 15, Creatinine 0.7, Estimat Glomerular Filtration Rate > 60, Glucose Level 51L, Calcium Level 9.0, Magnesium Level 1.9 Height (Feet): 5 Height (Inches): 10.00 Weight (Pounds): 158 General Appearance: alert EENT: normal ENT inspection Neck: normal alignment Cardiovascular: normal peripheral pulses, normal rate, regular rhythm Respiratory/Chest: chest wall non-tender, lungs clear, normal breath sounds Abdomen: normal bowel sounds, non tender, soft Extremities: normal inspection Edema: no edema noted Arm (L), no edema noted Arm (R), no edema noted Leg (L), no edema noted Leg (R), no edema noted Pedal (L), no edema noted Pedal (R), no edema noted Generalized Neurologic: responsive, motor weakness Skin: normal pigmentation, warm/dry SIGIFREDO ABREU Oct 27, 2017 13:31
--- NOTE | 2017-10-27 17:01 | Pulmonology Progress Note ---
Assessment/Plan Problems: (1) DKA, type 1 (2) SHAJI (acute kidney injury) Assessment/Plan improving, BS better tolerating diet dc home with close outpatient f/u Subjective ROS Limited/Unobtainable: No Constitutional: Reports: no symptoms HEENT: Repors: no symptoms Allergies: Coded Allergies: No Known Allergies (Unverified , 08/01/17) Objective Last 24 Hour Vital Signs Date Time Temp Pulse Resp B/P (MAP) Pulse Ox O2 Delivery O2 Flow Rate FiO2 10/27/17 12:00 97.5 69 20 146/96 98 Room Air 10/27/17 11:46 86 18 Room Air 21 10/27/17 11:31 97.2 10/27/17 08:00 97.2 80 18 132/92 97 Room Air 10/27/17 04:00 97.2 75 18 129/82 98 Room Air 10/26/17 23:53 97.9 89 18 143/94 99 10/26/17 19:57 97.7 97 18 144/98 99 General Appearance: WD/WN HEENT: normocephalic, atraumatic Respiratory/Chest: chest wall non-tender, lungs clear Cardiovascular: normal peripheral pulses, normal rate Abdomen: normal bowel sounds, soft, non tender Genitourinary: normal external genitalia Extremities: no cyanosis Skin: no lesions, no ulcers Laboratory Tests 10/27/17 05:20: White Blood Count 4.7L, Red Blood Count 4.09L, Hemoglobin 12.9L, Hematocrit 37.2L, Mean Corpuscular Volume 91, Mean Corpuscular Hemoglobin 31.5H, Mean Corpuscular Hemoglobin Concent 34.7, Red Cell Distribution Width 11.0L, Platelet Count 279, Mean Platelet Volume 5.7L, Neutrophils (%) (Auto) 53.0, Lymphocytes (%) (Auto) 39.0, Monocytes (%) (Auto) 6.2, Eosinophils (%) (Auto) 0.9, Basophils (%) (Auto) 1.0, Sodium Level 141, Potassium Level 3.4L, Chloride Level 106, Carbon Dioxide Level 31, Anion Gap 4L, Blood Urea Nitrogen 15, Creatinine 0.7, Estimat Glomerular Filtration Rate > 60, Glucose Level 51L, Calcium Level 9.0, Magnesium Level 1.9 VALERY OG Oct 27, 2017 17:01
--- NOTE | 2017-10-29 12:33 | Discharge Summary ---
Discharge Summary Hospital Course Date of Admission Oct 24, 2017 at 03:52 Date of Discharge Oct 27, 2017 at 15:20 Admitting Diagnosis DKA HPI Sylvester Lal is a 22 year old male who was admitted on Oct 24, 2017 at 03: 52 for Diabetic Keto Acidosis Hospital Course dc summary #[id number] Discharge Medications Continued Medications: Insulin Glargine (Lantus) 100 Unit/1 Ml Insuln.pen 35 SUBQ BEDTIME, #1 EA 0 Refills Insulin Lispro (Humalog) 100 Unit/1 Ml Insuln.pen 20 SUBQ AC+HS, #1 EA 0 Refills Quetiapine Fumarate* (Seroquel*) 200 Mg Tablet 200 MG ORAL BEDTIME, TAB Discharge Condition Upon Discharge: stable Discharge Disposition Patient was discharged to sober living Discharge Diagnoses: Adeel ([facility])Jewell NP Oct 29, 2017 12:33
--- NOTE | 2017-10-29 22:15 | Discharge Summary 2 SIG ---
DATE OF ADMISSION: 10/24/2017 DATE OF DISCHARGE: 10/27/2017 REASON FOR ADMISSION: 22-year-old male with history of diabetes mellitus type 1 and recurrent diabetic ketoacidosis, as well as history of amphetamine abuse and hepatitis C, currently residing at sober living, presented to the emergency department with abdominal pain, vomiting, and high blood sugar. No diarrhea. No fever. No chills. In the emergency department, WBC -18.6. Sodium- 127, potassium -5.9, anion gap -38, CO2- 6, and glucose level -972. Urine toxicology screen was negative. BUN -41 and creatinine -2.8. EKG revealed sinus tachycardia, but no acute changes. The patient presented with diabetic ketoacidosis, started on insulin drip and was transferred to ICU for further management. ADMITTING DIAGNOSES: 1. Diabetic ketoacidosis. 2. Dehydration. 3. Diabetes mellitus. HOSPITAL COURSE: The patient was admitted initially to intensive care unit. The patient was on insulin drip as per protocol. The patient was on aggressive IV hydration. Endocrinology consult was requested. Electrolytes were replaced as needed. Renal parameters were closely monitored. Acute renal failure was likely secondary to dehydration and subsequently resolved with the IV hydration. Leukocytosis resolved. Freight Handler closely followed. The patient initially was on insulin drip until anion gap closed. Subsequently the patient was transitioned to long and short acting insulin as per Endocrinology management along with sliding scale of insulin as needed. Blood sugar normalized. The patient was transferred to Medical/Surgical floor. Electrolyte imbalances were corrected , resolved. Pain management provided. DVT prophylaxis provided. Antiemetic provided as needed. Bowel regimen instituted. The patient was able to tolerate diet. Pulse oximetry was stable on room air. The patient was encouraged to continue abstinence from the street drugs and followup with the outpatient treatment for hepatitis C. The patient was stable for discharge back to sober living. FINAL DIAGNOSES: 1. Recurrent diabetic ketoacidosis. 2. Diabetes mellitus type 1. 3. Leukocytosis likely reactive, resolved. 4. Acute renal failure likely due to dehydration, resolved. 5. Dehydration. 6. History of amphetamine abuse. 7. Hepatitis C. 8. Electrolyte abnormalities; hyponatremia, hypomagnesemia, hyperkalemia.. DISCHARGE MEDICATIONS: See medication reconciliation list. DISCHARGE INSTRUCTIONS: The patient was discharged to Sober Living. Reinforced compliance with the insulin regimen. Reinforced abstinence from street drugs. Followup with primary medical doctor next week. Clyde Correa D.O. Jewell Gomeznyasia N.PFelipe DR: JACKELIN JOB#: [id number] CC: [email or web address]
== END 2017-10-27 15:20 | disposition home or self-care (01) | DRG 638 ==
LOC: EDBD 02:14 → EMR 02:20 → ICU 03:52 → EDBEDREQ 06:08 → 4E 10-25 21:22
DX: E10.10 Type 1 diabetes mellitus with ketoacidosis without coma (principal); N17.9 Acute kidney failure, unspecified; E83.42 Hypomagnesemia; E87.5 Hyperkalemia; E87.1 Hypo-osmolality and hyponatremia; E86.0 Dehydration; B19.20 Unspecified viral hepatitis C without hepatic coma; F15.10 Other stimulant abuse, uncomplicated; Z79.4 Long term (current) use of insulin
CPT/HCPCS: 36415; 36600; 80048; 80053; 80076; 80307; 81003; 82009; 82803; 82962; 83735; 84100; 85025; 85610; 85730; 93005; 94664; 99291; J1815; J2405; J8499; S5561